=== PATIENT | male | born 1970 | race African-American/Black ===

== ENCOUNTER 2017-09-13 13:09 | Inpatient (IN) | payer BC ==
[2017-09-13] MEDS ORDERED: Propofol 1,000 MG/100 ML VIAL IV ONE ×2 (13:13→17:54)
[2017-09-13] MEDS ORDERED: fentaNYL Citrate/PF 2,000 MCG in Sodium Chloride 0.9% 60 ML IV SCH (13:30)
[2017-09-13 13:39] LABS: Base Excess-Venous -6.1 mmol/L (0 (+/- 2.5)); Bicarbonate (HCO3v) 22.6 mmol/L (1.0-85.0); CO2 Tension (PvCO2) 55.2 mmHg (41.0-51.0); Hemoglobin - Calc 17.4 g/dL (12.0-18.0); Lactate 5.13 mmol/L (0.50-2.20); O2 Tension (PvO2) 18.9 mmHg (35.0-45.0); Potassium 3.6 mmol/L (3.4-4.7); T. Carbon Dioxide 24.2 mmol/L (1.0-85.0); pH (Venous) 7.219 (7.35-7.45); vO2 Saturation-calc 20.7 % (94-98)
[2017-09-13 13:47] LABS: Hemoglobin 15.5 g/dL (14.0-18.0); Mean Corpuscular HGB CONC 31.4 g/dL (32.0-36.0); Mean Corpuscular Hemoglobin 30.1 pg (27.0-31.0); Mean Corpuscular Volume 95.7 fl (80.0-94.0); Mean Platelet Volume 10.2 fL (7.4-10.4); Platelet Count 148 thou/uL (130-400); Red Blood Cell (RBC) Count 5.15 mill/uL (4.70-6.10); White Blood Cell (WBC) Count 7.3 thou/uL (4.8-10.8)
[2017-09-13 13:48] LABS: Bilirubin Small (Negative); Blood, Urine Trace (Negative); Clarity CLOUDY (Clear); Glucose, Urine (Dipstick) Negative (Negative); Leukocyte Small (Negative); Nitrite Negative (Negative); Protein, Urine (Dipstick) 30 mg/dL (Neg-Trace); Specific Gravity, Urine 1.027 (1.002-1.036)
[2017-09-13 13:50] LABS: Bacteria/HPF None Seen HPF (None Seen); Pathc Cast-AUWi Flag 2.47 (0-2.49); RBC/HPF 0-3 HPF (0-3); Squamous Epithelial 0-3 HPF (0-3); WBC/HPF 0-3 HPF (0-3)
[2017-09-13 13:52] LABS: Hyaline Casts/LPF 0-3 HYALINE CAST LPF (0-3 Hyaline)
[2017-09-13 13:58] LABS: Amphetamine Not Detected (NotDetected); Barbiturates Screen Not Detected (NotDetected); Benzodiazepine Screen Detected (NotDetected); Cocaine Metabolite Screen Not Detected (NotDetected); Medtox Control Line Valid? VALID (VALID); Medtox Reader # READER 4; Methadone Not Detected (NotDetected); Methamphetamine Not Detected (NotDetected); Opiate Screen Not Detected (NotDetected); Oxycodone Screen Not Detected (NotDetected); Phencyclidine (PCP) Not Detected (NotDetected); THC/Cannabinoid Screen Not Detected (NotDetected); Tricyclic Screen Not Detected (NotDetected)
[2017-09-13 14:05] LABS: ALT (SGPT) 34 U/L (8-55); AST (SGOT) 39 U/L (5-34); Albumin 3.2 g/dL (3.5-5.0); Alkaline Phosphatase 105 U/L (40-150); Anion Gap 17 mmol/L (10-20); BUN (Urea Nitrogen) 41 mg/dL (8.9-20.6); Bilirubin, Total 2.3 mg/dL (0.2-1.2); Calc. Creatinine Clearance 0 mL/min (70-130); Calcium 8.6 mg/dL (7.8-10.44); Carbon Dioxide 22 mmol/L (22-29); Chloride 102 mmol/L (98-107); Estimated GFR-MDRD 36; Globulin 3.1 g/dL (2.4-3.5); Glucose 101 mg/dL (70-105); Potassium 3.9 mmol/L (3.5-5.1); Protein, Total 6.3 g/dL (6.0-8.3); Sodium 137 mmol/L (136-145)
[2017-09-13 14:08] LABS: CKMB 2.1 ng/mL (0-6.6)
[2017-09-13 14:09] LABS: Lymphocytes 62 % (21-51); MDiff Complete? YES; Monocytes 9 % (0-10); Neutrophil 29 % (42-75); Nucleated RBC 2 % (0); PLT Morphology Comment Appears Adequate
[2017-09-13 14:11] LABS: Troponin I 1.296 ng/mL (< 0.028)
[2017-09-13 14:12] LABS: Actual Bicarbonate (HCO3a) 14.9 mEq/L (22-26); Base Excess (BEa) -9.4 mEq/L (0 (+/-) 2.5); CO2 Tension 28.7 mmHg (35.0-45.0); Hematocrit-ABG 47.8 % (42.0-52.0); Hemoglobin (Hb) 15.1 g/dL (14.0-18.0); O2 Tension (PaO2) 100.3 mmHg (80.0-100.0); pH, Arterial 7.33 (7.35-7.45)
[2017-09-13 14:13] LABS: ALV-art Gradient 291.625 (0-20); Analyzer IN Cardio ER; Calcium, Ionized 1.1 mmol/L (1.12-1.30); Puncture Site RBRACH
--- NOTE | 2017-09-13 14:23 | RAD ---
CHEST ONE VIEW: History: Chest pain. Cardiac arrest. FINDINGS: Cardiac silhouette magnified and enlarged. Pulmonary vasculature appears slightly engorged. Mediastin um midline. Tip of an endotracheal catheter overlies the thoracic inlet. Nasogastric tube descending to the abdomen at midline. Defibrillator patchy overlies the right upper chest. No evidence of pneumo thorax. IMPRESSION: 1. Cardiomegaly with borderline pulmonary vascular congestion. 2. Endotracheal catheter is in good radiographic position. POS: [facility]
[2017-09-13] MEDS ORDERED: Aspirin 325 MG TAB ONE (14:46)
[2017-09-13] MEDS ORDERED: Aspirin 300 MG Suppository ONE (14:47)
--- NOTE | 2017-09-13 14:56 | CT ---
CT HEAD NONCONTRAST: History: Altered mental status. Cardiac arrest. FINDINGS: There is no evidence of acute intracranial hemorrhage or infarct. Ventricles appear normal in size, s hape, and position. There is no mass effect or shift of midline structures. Visualized paranasal sinu ses remain well aerated. IMPRESSION: No acute intracranial abnormalities are demonstrated on noncontrast CT head. POS: [facility]
[2017-09-13] MEDS ORDERED: Acetaminophen 650 MG Suppository PR PRN (16:23)
[2017-09-13] MEDS ORDERED: Ondansetron HCl/PF 4 MG/2 ML Vial IVP PRN (16:23)
[2017-09-13] MEDS ORDERED: Bisacodyl 10 MG SUPP PR PRN (16:23)
[2017-09-13] MEDS ORDERED: Pantoprazole 40 MG VIAL IVP SCH (16:45)
[2017-09-13 17:08] LABS: Troponin I 1.905 ng/mL (< 0.028)
[2017-09-13 17:19] LABS: Lactic Acid 7.3 mmol/L (0.5-2.2)
--- NOTE | 2017-09-13 17:36 | HP ---
PRIMARY CARE PHYSICIAN: Dr. Franklin. REASON FOR ADMISSION: Out of hospital arrest. HISTORY OF PRESENT ILLNESS: This is a 47-year-old [place] male with a past medical history signific ant for acid reflux symptoms, on proton pump inhibitor. He was being evaluated by Gastroenterology f or these symptoms and was getting a diagnostic EGD along with a screening colonoscopy done today. In the outpatient center, patient had both procedures done and in recovery, he went into atrial fibrill ation with rapid ventricular rate and then lost pulse. By the emergency room physician's report, the patient had 8 cycles of CPR with epinephrine, but no shocks given and he eventually had return of sp ontaneous circulation. He was intubated and brought by EMS to the emergency room. Per the EMS repor t, the patient was biting down on the tube and moving some although I am uncertain if he was moving a ny of his extremities. In the emergency room, patient was found to still be in atrial fibrillation. He had a synchronized cardioversion with a conversion to normal sinus rhythm and in the emergency ro om, he was put on fentanyl for biting on the tube and Dr. Colvin was consulted for Pulmonology. Bed side ultrasound done by the emergency room physician did show a decreased ejection fraction of his he art. All history is taken from the emergency room physician as well and then the chart and the famil y was at bedside. His older sister and his are currently at bedside. PAST MEDICAL HISTORY: None. PAST SURGICAL HISTORY: None. PAST PSYCHIATRIC HISTORY: Anxiety. SOCIAL HISTORY: No tobacco or illicit drug use. Drinks socially and rarely. He is . FAMILY HISTORY: Failing history of congestive heart failure and adult-onset diabetes mellitus type 2 along with a kidney cancer. ALLERGIES: No known drug allergies. CURRENT MEDICATIONS: Prilosec or some other proton pump inhibitor. REVIEW OF SYSTEMS: Unable to obtain secondary to patient's unresponsive status. Per the patient's w milli, he does snore quite a lot, but does not have apneic spells at night. He does have daytime sleep iness. He also has had some swelling of his feet and legs for the last couple of days. No other rev iew of systems that he knows about. PHYSICAL EXAMINATION: VITAL SIGNS: Blood pressure 86/70, pulse 89, respirations 18, temperature 98.2, O2 sat 98% on ventil ator. GENERAL: This is a well-developed, obese male who is sedated on the vent. HEENT: Pupils are equally round and slightly reactive to light. Oropharynx, he does have the ET tub e in place. NECK: Without any masses or evidence of trauma. He has no lymphadenopathy, no thyroid nodules or en largement. HEART: Regular rate and rhythm, no murmurs, rubs or gallops. LUNGS: Clear to auscultation bilaterally, no wheezes, crackles or rhonchi. ABDOMEN: Soft, without masses. Normal bowel sounds. EXTREMITIES: Patient does have some slight edema in bilateral lower extremities and good peripheral pulses. SKIN: No rashes or lesions noted. NEUROLOGIC: Patient has intact reflexes in all extremities. He is currently nonresponsive to pain i n the extremities. He is not showing any spontaneous movement or response to pain. LABORATORY DATA: CBC grossly within normal limits. Initial Venous blood gas showed a pH of 7.219 wi th a pCO2 of 55. Arterial blood gas an hour later after increasing respiratory rate shows the pH of 7.33, pCO2 of 28, pO2 of 100. Complete metabolic panel notable for BUN at 41 and a creatinine of 2.3 2. Total bilirubin of 2.3, AST of 39 and albumin of 3.2, the rest is normal. Initial troponin is 1. 296 with a normal CK-MB. Lactic acid was initially elevated at 5.7. Urinalysis showed trace ketones and trace blood, but no white blood cells or red blood cells, no bacteria. Toxicology screen was po sitive only for benzodiazepines from his endoscopy sedation. IMAGING: I did review the CT of the brain done in the emergency room along with the radiologist's re port shows no evidence for intracranial hemorrhage or infarct. No evidence of edema at this time and normal CT. Chest x-ray, I did review the chest x-ray done in the emergency room along with the radi ologist's report, this does show some cardiomegaly with borderline pulmonary vascular congestion and an endotracheal tube in good position. No evidence for pneumonia or other significant infiltrates. EKG: Initial EKG done in the emergency room showed atrial fibrillation with rapid ventricular respon se, status post the cardioversion. The patient was back in normal sinus rhythm with occasional PVCs, did have some right axis deviation and some changes since with possibility of anterior ischemia. ASSESSMENT: 1. Out of hospital cardiac arrest with return of spontaneous circulation. This is possibly due to t he patient's atrial fibrillation versus some undiagnosed sleep apnea leading to an apneic spell in re covery and hypoxia causing the cardiac arrest. Patient has been evaluated by Dr. Colvin in the [facility]. Given he is not moving his arms or legs, though he did have some facial movements, we wi ll go ahead and do a post-arrest cooling once he gets to the emergency room. Patient will need to be supported with ventilator and cardiovascular supported for the next couple of days to see if his bra in will recover or if he had a significant anoxic brain injury. 2. Atrial fibrillation with rapid ventricular rate, new onset, possibly related to some hypoxia or a pnea during recovery versus just from underlying right heart strain from chronic obstructive sleep ap edwin. Patient is currently back in sinus rhythm. We will need to get an echocardiogram and Cardiolog y will be consulted. Patient will likely need some sort of anticoagulation in the future depending o n his CHADS score at least I believe some aspirin. 3. Obesity with likely obstructive sleep apnea. Patient will need further workup once he recovers f rom this insult and should he have a good recovery, he may need a sleep study in the future. 4. History of reflux. We will put patient on Protonix IV daily. 5. Deep venous thrombosis prophylaxis. We will put the patient on sequential compression devices an d Lovenox. 6. Code status: The patient is a FULL CODE. His medical decision maker is his , Vaishnavi Owens.
[2017-09-13] MEDS ORDERED: Norepinephrine 8 MG/0.9% NS 250 ML IVPB PRN (17:39)
[2017-09-13] MEDS ORDERED: Lacri-Lube Opth Oint 3.5 GM TUBE EA EYE PRN (17:39)
[2017-09-13] MEDS ORDERED: Ventilator Sedation Protocol 1 EACH FS SCH (17:45)
[2017-09-13] MEDS ORDERED: Fentanyl BOLUS 250 ML IVPB PRN (17:55)
[2017-09-13] MEDS ORDERED: Morphine 4 MG/ML VIAL SLOW IVP PRN (17:55)
[2017-09-13] MEDS ORDERED: Lorazepam 2 MG/ML VIAL SLOW IVP PRN (17:55)
[2017-09-13] MEDS ORDERED: Propofol BOLUS 1,000 MG/100 ML VIAL IV PRN (17:55)
[2017-09-13] MEDS ORDERED: DISCONTINUE PREVIOUS NARCOTIC PAIN MEDICATIONS AND BENZODIAZEPINES FS SCH (17:55)
[2017-09-13] MEDS ORDERED: Calcium Gluc 4.6 MEQ/10 ML (100 MG/ML) SLOW IVP SCH (18:15)
[2017-09-13] MEDS: Hydrocortisone Sod Succ/PF 100 mg/2 ml Vial IVP SCH (18:30)
[2017-09-13] MEDS ORDERED: Vecuronium 10 MG VIAL IV PRN (18:30)
[2017-09-13] MEDS ORDERED: Acetaminophen 1,000 MG in Premix Bag 1 BAG IVPB PRN (18:30)
[2017-09-13] MEDS: Piperacillin/Tazobactam 2.25 GM in Sodium Chloride 0.9% 100 ML IVPB SCH (18:36)
[2017-09-13 18:41] LABS: INR-International Normal Ratio 2.1; PTT 36.6 SEC (22.9-36.1); Prothrombin Time 24.6 SEC (12.0-14.7)
[2017-09-13 18:51] LABS: Magnesium 1.8 mg/dL (1.6-2.6); Phosphorus 6.6 mg/dL (2.3-4.7)
[2017-09-13 19:17] LABS: Actual Bicarbonate (HCO3a) 11.7 mEq/L (22-26); Base Excess (BEa) -11.6 mEq/L (0 (+/-) 2.5); Hematocrit-ABG 48.7 % (42.0-52.0); O2 Tension (PaO2) 87.5 mmHg (80.0-100.0); pH, Arterial 7.35 (7.35-7.45)
[2017-09-13 19:18] LABS: Calcium, Ionized 1.1 mmol/L (1.12-1.30); Puncture Site L RADIAL
[2017-09-13] MEDS ORDERED: Sodium Chloride 0.9% 500 ML IVPB SCH (19:45)
--- NOTE | 2017-09-13 21:01 | CON ---
DATE OF CONSULTATION: 09/13/2017 SERVICE: Pulmonary Medicine. REASON FOR CONSULTATION: ICU patient. HISTORY OF PRESENT ILLNESS: Patient is a 47-year-old -[place] male with past medical history significant for essentially nothing. He had some upper gastrointestinal discomforts. This is being investigated with an EGD. He presented for an elective outpatient procedure. EGD and a colonoscopy were both performed. The Either way, the patient tolerated the procedure fairly well , but at the end of it, he went into tachyarrhythmia. He dropped his pressure. He required 4 rounds of chest compressions. Ultimately, a perfusable rhythm was once again reestablished. He was subsequently brought to the emergency department. He was intubated prior to that the transfer. En route, he became apparently combative. As such, he was subsequently put on some sedating medications. In the Emergency Department, he started having some apparently purposeful movement. He was also biting down the endotracheal tube. As such, sedation was initiated. He cannot provide any additional elements of the history. The family reports that for the past 2 weeks, he has had increasing lower extremity swelling of unknown origin. PAST MEDICAL HISTORY: None. PAST SURGICAL HISTORY: None. SOCIAL HISTORY: Negative for tobacco or illicit drug use. He drinks alcohol socially, but this is not common. He has no known exposure to chemicals, dust asbestos or tuberculosis that we are aware of. FAMILY HISTORY: Noncontributory other than strong family history of heart disease, diabetes. ALLERGIES: No known drug allergies. MEDICATIONS: List of his inpatient medications were reviewed. Multiple updates were made. REVIEW OF SYSTEMS: This cannot be obtained as the patient is currently intubated and sedated. PHYSICAL EXAMINATION: VITAL SIGNS: Afebrile. Pulse 89, blood pressure 111/86, respirations 27, saturation 99% on 27% FiO2 and PEEP of 5. GENERAL: The patient is intubated and sedated. HEENT: Normocephalic, atraumatic. Sclerae are white, conjunctivae pink. Oral mucosa is moist without lesions. LUNGS: Decent air entry bilaterally. There are some rhonchi present. Dependent crackles are also evident. No prolonged expiratory phase or wheezing is appreciated. HEART: Normal rate, regular. ABDOMEN: Soft, nontender, nondistended. Bowel sounds are positive. MUSCULOSKELETAL: No cyanosis or clubbing. He has got 2+ pitting in the bilateral lower extremities, which is roughly symmetric. GENITOURINARY: Carbajal catheter in place. NEUROLOGIC: Pupils are equal, round, and reactive. He is having episodes of tachypnea interposed with him making no effort over the ventilator. He is not doing anything purposeful. He does not withdraw from noxious stimuli, but during his intermittent episodes of tachypnea, he will spontaneously open up his eyes without attending, and move all 4 extremities. I cannot clearly identify anything that I would define as purposeful. LABORATORY DATA: Urine drug screen is only remarkable for benzodiazepine. Urinalysis has a little bit of proteinuria, but otherwise is mostly unremarkable. There is specifically no red or white blood cells present. Lactate is up trending to 7.3, troponin is up trending to 1.9. Ionized calcium is low at 1.0. Creatinine 2.46. Basic metabolic profile is otherwise unremarkable. Liver function studies are unremarkable except for total bilirubin of 2.3. Albumin 3.2. A pH 7.33, pCO2 of 28, pO2 of 100. He was on 60% FiO2 at that time. CBC is essentially unremarkable, though his neutrophil count is only 29%. Bands were not reported. IMAGIN. CT of the brain demonstrates no acute intracranial abnormality. 2. Chest x-ray demonstrates cardiomegaly with pulmonary vascular congestion. There is no evidence of pneumothorax. Endotracheal tube is in good position. There is an enteric catheter coursing below the level of the diaphragm. Left atrium enlargement is likely given his widened chang angle. ASSESSMENT: 1. Non-ST elevation myocardial infarction. 2. Atrial fibrillation, new onset, status post successful cardioversion, currently normal sinus rhythm. 3. Acute hypoxic respiratory failure. 4. Acute systolic heart failure, suspected. 5. Pulseless electrical activity arrest. 6. Recent EGD biopsy and colonoscopy for nonspecific GI discomforts. 7. Acute kidney injury, currently anuric. 8. Anoxic brain injury, suspected. 9. Obstructive sleep apnea. DISCUSSION AND PLAN: We will watch the patient off of sedating medications for a brief period of time. If he fails to make more meaningful responses, we will initiate cooling protocol. He is currently on pressure control ventilation. If for any reason, we institute a paralytic or a sedating medication, he will be switched over to volume-controlled ventilation targeting a minute volume 12 liters per minute. Urgent echocardiogram will be obtained. I will do an ultrasound of bilateral lower extremities to make certain there is no obvious DVT there. His creatinine is 2.32. There is no way that he has had enough time to create that arise. As such, he likely has a component of chronic kidney disease. Ultrasound of kidneys will also be performed. He will remain in the ICU on mechanical ventilation. If his brain starts to wake up, we will consider him for extubation, but more than likely, he will be with us in the ICU for a couple of days if not longer. CRITICAL CARE TIME: 115 minutes. BLAKE
[2017-09-13 22:55] LABS: Lactic Acid 7.1 mmol/L (0.5-2.2)
[2017-09-13 23:06] LABS: Troponin I 2.129 ng/mL (< 0.028)
[2017-09-13 23:58] LABS: PTT 32.8 SEC (22.9-36.1)
[2017-09-14 00:03] LABS: INR-International Normal Ratio 2.1; Prothrombin Time 24.7 SEC (12.0-14.7)
[2017-09-14] MEDS: Piperacillin/Tazobactam 2.25 GM in Sodium Chloride 0.9% 100 ML IVPB SCH ×5 (00:21→23:32)
[2017-09-14] MEDS: Hydrocortisone Sod Succ/PF 100 mg/2 ml Vial IVP SCH ×2 (00:21→06:45)
[2017-09-14 00:27] LABS: CKMB 12.9 ng/mL (0-6.6); Troponin I 1.691 ng/mL (< 0.028)
[2017-09-14] MEDS: fentaNYL Citrate/PF 2,000 MCG in Sodium Chloride 0.9% 60 ML IV SCH ×3 (03:54→22:41)
[2017-09-14] MEDS: Propofol 1,000 MG/100 ML VIAL IV PRN ×3 (03:59→23:32)
[2017-09-14 05:13] LABS: Anion Gap 19 mmol/L (10-20); BUN (Urea Nitrogen) 51 mg/dL (8.9-20.6); Calc. Creatinine Clearance 58 mL/min (70-130); Calcium 9.1 mg/dL (7.8-10.44); Carbon Dioxide 21 mmol/L (22-29); Chloride 103 mmol/L (98-107); Estimated GFR-MDRD 30; Glucose 190 mg/dL (70-105); Potassium 5.3 mmol/L (3.5-5.1); Sodium 138 mmol/L (136-145)
[2017-09-14 05:17] LABS: #Lymphocytes 1.2 thou/uL (1.20-3.40); #Monocytes 0.5 thou/uL (0.11-0.59); #Neutrophils 9.1 thou/uL (1.40-6.50); %Basophils 0.4 % (0.0-1.0); %Eosinophils 0.3 % (0.0-10.0); %Lymphocytes 10.9 % (21.0-51.0); %Monocytes 4.4 % (0.0-10.0); %Neutrophils 83.9 % (42.0-75.0); Large Platelets SLIGHT; MDiff Complete? YES; Mean Corpuscular HGB CONC 32.6 g/dL (32.0-36.0); Mean Corpuscular Hemoglobin 31.2 pg (27.0-31.0); Mean Corpuscular Volume 95.7 fl (80.0-94.0); Mean Platelet Volume 10.3 fL (7.4-10.4); PLT Morphology Comment Appears Decreased; Platelet Count 107 thou/uL (130-400); RBC Distribution Width 13.2 % (11.5-14.5); Red Blood Cell (RBC) Count 5.14 mill/uL (4.70-6.10); White Blood Cell (WBC) Count 10.8 thou/uL (4.8-10.8)
[2017-09-14 05:25] LABS: ALT (SGPT) 231 U/L (8-55); AST (SGOT) 412 U/L (5-34); Albumin 3.1 g/dL (3.5-5.0); Alkaline Phosphatase 98 U/L (40-150); Bilirubin, Direct 1.1 mg/dL (0.1-0.3); Bilirubin, Total 2.8 mg/dL (0.2-1.2); Protein, Total 6.4 g/dL (6.0-8.3)
[2017-09-14 06:03] LABS: #Lymphocytes 1.4 thou/uL (1.20-3.40); #Monocytes 0.6 thou/uL (0.11-0.59); #Neutrophils 8.8 thou/uL (1.40-6.50); %Basophils 0.1 % (0.0-1.0); %Eosinophils 0.2 % (0.0-10.0); %Lymphocytes 13.3 % (21.0-51.0); %Monocytes 5.2 % (0.0-10.0); %Neutrophils 81.2 % (42.0-75.0); Mean Corpuscular HGB CONC 31.2 g/dL (32.0-36.0); Mean Corpuscular Hemoglobin 29.6 pg (27.0-31.0); Platelet Count 105 thou/uL (130-400); RBC Distribution Width 13.3 % (11.5-14.5); White Blood Cell (WBC) Count 10.8 thou/uL (4.8-10.8)
[2017-09-14 06:08] LABS: INR-International Normal Ratio 2.2; PTT 34.8 SEC (22.9-36.1); Prothrombin Time 25.5 SEC (12.0-14.7)
[2017-09-14 06:18] LABS: Anion Gap 20 mmol/L (10-20); BUN (Urea Nitrogen) 52 mg/dL (8.9-20.6); Calc. Creatinine Clearance 55 mL/min (70-130); Calcium 9.1 mg/dL (7.8-10.44); Carbon Dioxide 19 mmol/L (22-29); Chloride 103 mmol/L (98-107); Estimated GFR-MDRD 28; Glucose 194 mg/dL (70-105); Phosphorus 6.5 mg/dL (2.3-4.7); Sodium 137 mmol/L (136-145)
[2017-09-14 06:32] LABS: CKMB 18.3 ng/mL (0-6.6); Troponin I 0.947 ng/mL (< 0.028)
--- NOTE | 2017-09-14 07:46 | PDOC.PN ---
- Subjective Encounter Start Date: 09/14/17 Encounter Start Time: 10:00 Subjective: Patient sedated on vent overnight, cooling protocol. - Objective Resuscitation Status: Resuscitation Status FULL:Full Resuscitation MAR Reviewed: Yes Vital Signs & Weight: Vital Signs (12 hours) Temp Pulse Resp BP Pulse Ox 09/14/17 06:49 60 129/90 99 09/14/17 05:57 21 H 09/14/17 04:00 21 H 09/14/17 03:40 57 L 09/14/17 02:00 21 H 09/14/17 00:00 21 H 09/13/17 23:06 59 L 127/85 09/13/17 22:00 21 H 09/13/17 20:00 96.8 F L 74 21 H 100 Most Recent Monitor Data Heart Rate from ECG 56 NIBP 118/82 NIBP BP-Mean 97 Respiration from ECG 21 SpO2 99 I&O: 09/13/17 09/14/17 09/15/17 06:59 06:59 06:59 Intake Total 911.4 Output Total 203 Balance 708.4 Result Diagrams: 09/14/17 05:40 09/14/17 05:40 Phys Exam - Physical Examination sedated on vent Respiratory: no wheezing, no rales, no rhonchi Cardiovascular: RRR, no significant murmur Gastrointestinal: soft, positive bowel sounds Musculoskeletal: edema present Deviation from normal: sedated on vent Dx/Plan (1) PEA (Pulseless electrical activity) Code(s): I46.9 - CARDIAC ARREST, CAUSE UNSPECIFIED Status: Acute Comment: Arrest with ROSC after 8 rounds of CPR/Epi, cooling protocol in ICU (2) Acute respiratory failure Code(s): J96.00 - ACUTE RESPIRATORY FAILURE, UNSP W HYPOXIA OR HYPERCAPNIA Status: Acute Comment: intubated and ventilated, breathing over the vent in the ER (3) Atrial fibrillation Code(s): I48.91 - UNSPECIFIED ATRIAL FIBRILLATION Status: Resolved Comment: s/p synchronized cardioversion in the ER after ROSC (4) NSTEMI (non-ST elevated myocardial infarction) Code(s): I21.4 - NON-ST ELEVATION (NSTEMI) MYOCARDIAL INFARCTION Status: Acute Comment: ECHO pending, Dr. Lagunas consulted (5) Acute on chronic renal failure Code(s): N17.9 - ACUTE KIDNEY FAILURE, UNSPECIFIED; N18.9 - CHRONIC KIDNEY DISEASE, UNSPECIFIED Status: Acute Comment: uncertain baseline (6) ENZO (obstructive sleep apnea) Code(s): G47.33 - OBSTRUCTIVE SLEEP APNEA (ADULT) (PEDIATRIC) Status: Suspected (7) Anoxic brain damage Status: Suspected - Plan cont current plan of care, continue antibiotics, respiratory therapy, DVT proph w/lovenox, DVT proph w/SCDs plan for cooling until tonight, then warm overnight, can start weaning -: sedation after that and see how he responds neurologically * . - Discharge Day Encounter end time: 10:30
[2017-09-14] MEDS: Enoxaparin Sodium 30 MG/0.3 ML SYRINGE SC SCH (08:37)
[2017-09-14] MEDS: Pantoprazole 40 MG VIAL IVP SCH (08:38)
--- NOTE | 2017-09-14 08:48 | ULT ---
RENAL ULTRASOUND: CLINICAL INDICATION: Oliguria, acute renal insufficiency. FINDINGS: The left kidney demonstrates a length of approximately 10 cm and the right kidney approximately 11 cm . There is no overt hydronephrosis or discrete renal lesion. The urinary bladder is decompressed li miting assessment. IMPRESSION: No overt hydronephrosis of either kidney. POS: [facility]
--- NOTE | 2017-09-14 08:50 | ULT ---
BILATERAL LOWER EXTREMITY VENOUS DUPLEX DOPPLER ULTRASOUND: CPT: 36918 ICD-10-PCS: B54D INDICATIONS: Edema. TECHNIQUE: Color-flow Doppler, spectral wave-form analysis of pulsed Doppler, and dale-scale imaging with compre ssion and augmentation were used to evaluate the bilateral common femoral, femoral, popliteal, sport shoe spike assembler ior tibial, and superficial femoral veins, and the proximal portions of the profunda femoral and grea ter saphenous veins. FINDINGS: Appropriate compressibility and flow within the imaged deep venous system of each lower extremity wit hout evidence of DVT. IMPRESSION: No deep venous thrombosis. POS: [facility]
--- NOTE | 2017-09-14 09:03 | PRG ---
DATE OF SERVICE: 09/14/2017 SERVICE: Pulmonary Service. INTERVAL HISTORY: The patient is doing great from cardiovascular and respiratory standpoint. Neurol ogically, he has made much headway. That being said, we started cooling last night. He is currently on 200 mcg of fentanyl and a little bit of propofol. He is weaning off of the Levophed very comfort ably. He cannot provide additional elements of the history. Overnight, he started making a little b it of urine, which is nice. PHYSICAL EXAMINATION: VITAL SIGNS: Currently hypothermic, pulse 60, blood pressure 118/82, respirations 21, saturation 99% on 27% FiO2 and a PEEP of 5. HEENT: Normocephalic, atraumatic. Sclerae are white, conjunctivae pink. Oral mucosa is moist witho ut lesions. LUNGS: Decent air entry bilaterally. There is no prolonged expiratory phase, wheezing, rhonchi, or crackles present. HEART: Normal rate and regular. ABDOMEN: Soft, nontender, nondistended. Bowel sounds are positive. MUSCULOSKELETAL: No cyanosis or clubbing. There is 2+ pitting in the bilateral lower extremities. NEUROLOGIC: Pupils are equal, round, and reactive to light. He is currently riding the ventilator, by design. LABORATORY DATA: WBC 10.8, hemoglobin 16.0, platelets 105,000. INR 2.2. PH 7.35, pCO2 22 and pO2 8 7. Creatinine 2.87, which is gently up trending. Basic metabolic profile is otherwise unremarkable. Phosphorus is 6.5 and magnesium 2.0. Troponin is down trending to 0.947, lactate is gently down tr ending to 7.1, and albumin 3.1. BNP 809, blood cultures x2 are unremarkable so far. IMAGING: Chest x-ray demonstrates no obvious acute cardiopulmonary abnormality. Endotracheal tube r emains in good position. There is an enteric catheter coursing below the level of the diaphragm. Th ere is a little rotation to this film. The heart is enlarged, though it is a portable film. The lef t base is cut off. Pulmonary vascular congestion is evident. ASSESSMENT: 1. Acute hypoxic respiratory failure. 2. Non-ST elevation myocardial infarction. 3. Acute systolic heart failure, suspected. 4. Atrial fibrillation, new onset, status post successful cardioversion, currently sinus bradycardia . 5. Pulseless electrical activity. 6. Anoxic brain injury. 7. Acute kidney injury. 8. Obstructive sleep apnea, suspected. 9. Recent EGD and colonoscopy for nonspecific GI discomforts DISCUSSION AND PLAN: The troponin is finally trending down, which is nice to see. No additional tro ponins will be obtained. We will get a lactate with his next blood draw. Otherwise, supportive care will be continued. We are currently in a holding pattern. He will remain cool till 6:00 this al dillon. At that point, we will rewarm him, wean sedation and see what the extent of his neurologic injur y is. The family is prepared for possible bad neurologic outcome, though everybody still hoping for the best. CRITICAL CARE TIME: 30 minutes.
[2017-09-14 12:14] LABS: #Lymphocytes 1.2 thou/uL (1.20-3.40); #Monocytes 0.4 thou/uL (0.11-0.59); %Basophils 0.1 % (0.0-1.0); %Eosinophils 0.1 % (0.0-10.0); %Lymphocytes 13.5 % (21.0-51.0); %Monocytes 4.9 % (0.0-10.0); %Neutrophils 81.4 % (42.0-75.0); Hemoglobin 15.6 g/dL (14.0-18.0); Mean Corpuscular HGB CONC 31.7 g/dL (32.0-36.0); Mean Corpuscular Hemoglobin 29.8 pg (27.0-31.0); Mean Platelet Volume 10.2 fL (7.4-10.4); Platelet Count 101 thou/uL (130-400); Red Blood Cell (RBC) Count 5.24 mill/uL (4.70-6.10); White Blood Cell (WBC) Count 8.5 thou/uL (4.8-10.8)
[2017-09-14 12:19] LABS: INR-International Normal Ratio 2.2; PTT 37.9 SEC (22.9-36.1); Prothrombin Time 25.1 SEC (12.0-14.7)
[2017-09-14 12:30] LABS: Lactic Acid 3.5 mmol/L (0.5-2.2)
[2017-09-14 12:33] LABS: Anion Gap 18 mmol/L (10-20); BUN (Urea Nitrogen) 54 mg/dL (8.9-20.6); Calc. Creatinine Clearance 58 mL/min (70-130); Calcium 8.9 mg/dL (7.8-10.44); Carbon Dioxide 18 mmol/L (22-29); Chloride 105 mmol/L (98-107); Estimated GFR-MDRD 30; Glucose 179 mg/dL (70-105); Phosphorus 5.9 mg/dL (2.3-4.7); Potassium 4.4 mmol/L (3.5-5.1); Sodium 137 mmol/L (136-145)
--- NOTE | 2017-09-14 15:18 | CON ---
DATE OF CONSULTATION: 09/14/2017 HISTORY OF PRESENT ILLNESS: The patient is a 47-year-old -[place] gentleman, who underwent E GD and colonoscopy at [facility] and developed atrial fibrillation. He had a rap id ventricular rate and then lost his pulse. He had a CPR performed and given epinephrine and had sp ontaneous return of heart rhythm. He was intubated and transported to the emergency room. He adds n othing to history of present illness today that he is being sedated and cooled. PAST MEDICAL HISTORY: Includes gastroesophageal reflux disease. PAST SURGICAL HISTORY: None. ALLERGIES: No known allergies. MEDICATIONS: Include dicyclomine 10 mg p.o. q.i.d. p.r.n. SOCIAL HISTORY: He is , 5 children. Does not smoke or drink. FAMILY HISTORY: Significant for esophageal reflux disease. REVIEW OF SYSTEMS: Unobtainable. PHYSICAL EXAMINATION: GENERAL: Shows obese -[place] gentleman, ventilated. HEENT: Significant for endotracheal tube in place. CHEST: Clear. CARDIOVASCULAR: Regular rate and rhythm. ABDOMEN: Soft, nontender, without organomegaly or masses. Bowel sounds are present and normoactive. RECTAL: Deferred. EXTREMITIES: Normal. NEUROLOGIC: Nonfocal. LABORATORY DATA: EGD report obtained showed grade I esophageal varices and changes of portal hyperte nsive gastropathy. Ultrasound from a referral outsource showed a normal abdominal ultrasound. Labor atory performed in the outpatient setting showed total bilirubin of 2.9 and AST of 51. TSH was rogelio l. Antinuclear antibody was normal. Ceruloplasmin showed a level of 30.9. Ferritin was normal. He patitis panel was negative. Antimitochondrial antibody and smooth muscle antibody were both negative . ASSESSMENT: 1. Atrial fibrillation with loss of pulse and need for cardiopulmonary resuscitation in the outpatie nt setting. 2. Gastroesophageal reflux disease. 3. Hepatic dysfunction - the patient may have some underlying cirrhosis since he has some small vari deborah and portal hypertensive gastropathy. RECOMMENDATIONS: 1. Continue critical care management. 2. We will work up liver disorder once the patient is more stable.
[2017-09-14 18:08] LABS: #Lymphocytes 0.6 thou/uL (1.20-3.40); #Monocytes 0.3 thou/uL (0.11-0.59); %Basophils 0.1 % (0.0-1.0); %Eosinophils 0.3 % (0.0-10.0); %Lymphocytes 10.2 % (21.0-51.0); %Monocytes 4.8 % (0.0-10.0); %Neutrophils 84.7 % (42.0-75.0); Hemoglobin 14.9 g/dL (14.0-18.0); Mean Corpuscular HGB CONC 33.6 g/dL (32.0-36.0); Mean Corpuscular Hemoglobin 31.4 pg (27.0-31.0); Mean Corpuscular Volume 93.5 fl (80.0-94.0); Mean Platelet Volume 10.7 fL (7.4-10.4); Platelet Count 82 thou/uL (130-400); RBC Distribution Width 13.1 % (11.5-14.5); Red Blood Cell (RBC) Count 4.73 mill/uL (4.70-6.10); White Blood Cell (WBC) Count 5.9 thou/uL (4.8-10.8)
[2017-09-14 18:14] LABS: INR-International Normal Ratio 2.1; PTT 39.4 SEC (22.9-36.1); Prothrombin Time 24.6 SEC (12.0-14.7)
[2017-09-14 18:37] LABS: Anion Gap 17 mmol/L (10-20); BUN (Urea Nitrogen) 54 mg/dL (8.9-20.6); Calc. Creatinine Clearance 61 mL/min (70-130); Calcium 8.6 mg/dL (7.8-10.44); Carbon Dioxide 19 mmol/L (22-29); Chloride 106 mmol/L (98-107); Estimated GFR-MDRD 32; Glucose 147 mg/dL (70-105); Magnesium 1.8 mg/dL (1.6-2.6); Phosphorus 5.3 mg/dL (2.3-4.7); Sodium 138 mmol/L (136-145)
[2017-09-14 22:20] LABS: Anion Gap 15 mmol/L (10-20); BUN (Urea Nitrogen) 56 mg/dL (8.9-20.6); Calc. Creatinine Clearance 62 mL/min (70-130); Calcium 8.7 mg/dL (7.8-10.44); Carbon Dioxide 20 mmol/L (22-29); Chloride 106 mmol/L (98-107); Estimated GFR-MDRD 33; Glucose 125 mg/dL (70-105); Potassium 3.7 mmol/L (3.5-5.1); Sodium 137 mmol/L (136-145)
--- NOTE | 2017-09-14 22:23 | CON ---
DATE OF CONSULTATION: 09/14/2017 HISTORY OF PRESENT ILLNESS: Alvarado Owens is a 47-year-old black male who was having some fullness in his chest despite taking proton pump inhibiting medication. He underwent EGD and a colonoscopy at the outpatient endoscopy center. He apparently went through the procedures well and then afterwards went into atrial fibrillation, became hypotensive, and CPR had to be initiated. He was intubated and transferred. Apparently, he remained in atrial fibrillation with fast ventricular response in the emergency room and was cardioverted there. He was somewhat combative and was placed on intravenous sedation with propofol. No other history is available at this time. Apparently over the last 2 weeks, he noticed that he had been having increasing leg edema. PAST MEDICAL HISTORY: Apparently none. OPERATIONS: None. MEDICATIONS: Proton pump inhibitor. ALLERGIES: None. SOCIAL HISTORY: Does not smoke, occasionally drinks. REVIEW OF SYSTEMS: Unobtainable. PHYSICAL EXAMINATION: VITAL SIGNS: Blood pressure 118/89, pulse of 52 and regular. Sinus bradycardia on the monitor. HEENT: PERRL. CHEST: Clear. CARDIAC: S1 and S2 are normal, without any S3, S4 or murmurs. ABDOMEN: Normal bowel sounds, without tenderness, organomegaly. EXTREMITIES: Revealed 1+ pretibial edema. No clubbing or cyanosis. NEUROLOGIC: The patient is sedated. LABORATORY DATA: Admission EKG revealed atrial fibrillation with fast ventricular response of 139 per minute. Four minutes later after cardioversion , he was in sinus rhythm with nonspecific T-wave changes. CBC is fairly unremarkable. Sodium 137, potassium 4.4, chloride 105, carbon dioxide 18, BUN 54, creatinine 2.75. Urine drug screen only detected benzodiazepines. CK-MB 18.3, troponin I 2.129. Echocardiogram revealed severe left ventricular dysfunction with ejection fraction of 25% to 30%, moderate left atrial enlargement, mild right atrial enlargement, moderate mitral regurgitation, mild to moderate aortic regurgitation, moderate to severe tricuspid regurgitation, and moderate pulmonic regurgitation. IMPRESSION: 1. Cardiac arrest with prolonged CPR after an episode of atrial fibrillation and then hypotension. 2. Cardiomyopathy of uncertain etiology. 3. Elevated cardiac enzymes, which certainly could have been due to his prolonged CPR or he certainly may have had a [id number] myocardial infarction. 4. Peripheral edema over 2 weeks. 5. Chronic kidney disease. There does not appear to be any old laboratory for comparison. RECOMMENDATIONS: The patient currently is sedated on a cooling blanket. This will be tapered off over the next 24-36 hours. His neurological status will then be assessed. If he has return of his cerebral function, consideration certainly should be given to cardiac catheterization to try to define the etiology of his cardiomyopathy. I will follow the patient with you. BLAKE
[2017-09-15 03:07] LABS: Anion Gap 15 mmol/L (10-20); BUN (Urea Nitrogen) 60 mg/dL (8.9-20.6); Calc. Creatinine Clearance 63 mL/min (70-130); Calcium 8.4 mg/dL (7.8-10.44); Carbon Dioxide 19 mmol/L (22-29); Chloride 108 mmol/L (98-107); Estimated GFR-MDRD 33; Glucose 103 mg/dL (70-105); Potassium 3.7 mmol/L (3.5-5.1); Sodium 138 mmol/L (136-145)
[2017-09-15] MEDS: Piperacillin/Tazobactam 2.25 GM in Sodium Chloride 0.9% 100 ML IVPB SCH ×4 (05:58→23:44)
[2017-09-15] MEDS: Propofol 1,000 MG/100 ML VIAL IV PRN (06:41)
[2017-09-15] MEDS: fentaNYL Citrate/PF 2,000 MCG in Sodium Chloride 0.9% 60 ML IV SCH (06:52)
[2017-09-15 07:26] LABS: Anion Gap 15 mmol/L (10-20); BUN (Urea Nitrogen) 61 mg/dL (8.9-20.6); Calc. Creatinine Clearance 59 mL/min (70-130); Calcium 8.3 mg/dL (7.8-10.44); Carbon Dioxide 18 mmol/L (22-29); Chloride 109 mmol/L (98-107); Estimated GFR-MDRD 31; Glucose 92 mg/dL (70-105); Potassium 4.3 mmol/L (3.5-5.1); Sodium 138 mmol/L (136-145)
[2017-09-15] MEDS: Enoxaparin Sodium 30 MG/0.3 ML SYRINGE SC SCH ×2 (08:24)
[2017-09-15] MEDS: Pantoprazole 40 MG VIAL IVP SCH (08:24)
[2017-09-15] MEDS ORDERED: Furosemide 40 MG/4 ML VIAL SLOW IVP SCH (09:45)
[2017-09-15] MEDS ORDERED: Digoxin 0.5 MG/2 ML AMP ONE (09:49)
[2017-09-15] MEDS ORDERED: Amiodarone HCl 150 MG in Dextrose 5% in Water 100 ML IVPB SCH (10:00)
[2017-09-15] MEDS: Amiodarone HCl 450 MG in Dextrose 5% in Water 250 ML IVPB SCH ×2 (10:12→16:47)
--- NOTE | 2017-09-15 11:10 | PRG ---
DATE OF SERVICE: 09/15/2017 SERVICE: Pulmonary Medicine. INTERVAL HISTORY: The patient is following commands this morning. Mentation mc, things improved dramatically. Oxygen requirements have improved. Overall , he has had a very positive 24 hours. He remains on quite a bit of sedation. We are going to put him on a spontaneous breathing trial as soon as he tolerates a good sedation holiday. His breaths are little anemic with all the sedation currently. PHYSICAL EXAMINATION: VITAL SIGNS: Afebrile, pulse 81, blood pressure 100/71, respirations 23, saturation 97% on 21% FiO2 and a PEEP of 5. GENERAL: Patient is intubated and sedated. That being said, he is following commands. He is moving all 4 extremities. HEENT: Normocephalic, atraumatic. Sclerae are white, conjunctivae pink. Oral mucosa is moist without lesions. LUNGS: Excellent air entry. There is no prolonged expiratory phase or wheezing present. HEART: Normal rate, regular. ABDOMEN: Soft, nontender, nondistended. Bowel sounds are positive. MUSCULOSKELETAL: No cyanosis or clubbing. There is 2+ pitting in the bilateral lower extremities. NEUROLOGIC: Grossly nonfocal. LABORATORY DATA: WBC 5.9, hemoglobin 14.9, platelets 82,000. INR 2.1. Creatinine 2.67 and roughly stable, BUN 61. Basic metabolic profile is essentially unremarkable otherwise. Blood cultures x4 are unremarkable. IMAGING: Echocardiogram demonstrates 25%-30% ejection fraction. Moderately dilated left atrium. Mild to moderate aortic regurgitation is noted. Moderate to severe tricuspid regurgitation, moderate pulmonic regurgitation. ASSESSMENT: 1. Acute hypoxic respiratory failure. 2. Acute systolic and valvular heart failure. 3. Non-ST elevation myocardial infarction. 4. Atrial fibrillation, new onset, status post successful cardioversion, currently sinus rhythm. 5. Pulseless electrical activity arrest, out of hospital. 6. Anoxic brain injury, quickly resolving. 7. Acute kidney injury versus chronic kidney disease. 8. Obstructive sleep apnea, suspected. DISCUSSION AND PLAN: We will start a daily dose of Lasix for the time being until he diureses to euvolemia. Once he wakes up, we will put him on a spontaneous breathing trial. We will get the central line out of his femoral vein. He will remain in the ICU over the next 24 hours. Ultimately on discharge from the hospital, we will need to look into whether or not he has obstructive sleep apnea. CRITICAL CARE TIME: 30 minutes. BLAKE
--- NOTE | 2017-09-15 11:34 | PDOC.PN ---
- Subjective Encounter Start Date: 09/15/17 Encounter Start Time: 08:50 -: old records requested/rev Patient seen and examined for respiratory failure. intubated, family bedside. No overnight events pt is awake on vent, family bedside - Objective Resuscitation Status: Resuscitation Status FULL:Full Resuscitation MAR Reviewed: Yes Vital Signs & Weight: Vital Signs (12 hours) Temp Pulse Resp BP Pulse Ox 09/15/17 10:00 17 09/15/17 09:58 152 H 09/15/17 09:50 145 H 111/75 09/15/17 08:00 21 H 09/15/17 07:11 96.4 F L 72 21 H 96 09/15/17 06:16 73 91/56 L 09/15/17 06:00 21 H 09/15/17 04:56 79 09/15/17 04:00 21 H 09/15/17 02:00 21 H 09/15/17 00:00 21 H 09/14/17 23:40 68 86/55 L Weight Admit Weight 276 lb Weight 276 lb 7.355 oz Most Recent Monitor Data Heart Rate from ECG 126 NIBP 106/53 NIBP BP-Mean 68 Respiration from ECG 12 SpO2 98 I&O: 09/14/17 09/15/17 09/16/17 06:59 06:59 06:59 Intake Total 942.6 1250.0 0 Output Total 203 850 320 Balance 739.6 400.0 -320 Result Diagrams: 09/14/17 17:54 09/15/17 06:38 Radiology Reviewed by me: Yes (chest xray) EKG Reviewed by me: Yes (nsr) Phys Exam - Physical Examination Constitutional: NAD HEENT: PERRLA, moist MMs, sclera anicteric Neck: no JVD, supple Respiratory: no wheezing, no rales, no rhonchi Cardiovascular: RRR, no significant murmur, no rub Gastrointestinal: soft, non-tender, no distention, positive bowel sounds Musculoskeletal: no edema, pulses present Lymphatic: no nodes Skin: no rash, normal turgor Dx/Plan (1) Abnormal LFTs Code(s): R94.5 - ABNORMAL RESULTS OF LIVER FUNCTION STUDIES Status: Acute (2) Acute kidney failure Status: Acute (3) Acute respiratory failure with hypoxia Code(s): J96.01 - ACUTE RESPIRATORY FAILURE WITH HYPOXIA Status: Acute (4) Cardiac arrest with pulseless electrical activity Code(s): I46.9 - CARDIAC ARREST, CAUSE UNSPECIFIED Status: Acute (5) Coagulopathy Status: Acute (6) Lactic acidosis Code(s): E87.2 - ACIDOSIS Status: Acute (7) Moderate aortic regurgitation Code(s): I35.1 - NONRHEUMATIC AORTIC (VALVE) INSUFFICIENCY Status: Acute (8) Moderate mitral regurgitation Code(s): I34.0 - NONRHEUMATIC MITRAL (VALVE) INSUFFICIENCY Status: Acute (9) Moderate tricuspid regurgitation Code(s): I07.1 - RHEUMATIC TRICUSPID INSUFFICIENCY Status: Acute (10) Myocardial systolic dysfunction Code(s): I51.9 - HEART DISEASE, UNSPECIFIED Status: Acute (11) NSTEMI (non-ST elevated myocardial infarction) Code(s): I21.4 - NON-ST ELEVATION (NSTEMI) MYOCARDIAL INFARCTION Status: Acute (12) Thrombocytopenia Code(s): D69.6 - THROMBOCYTOPENIA, UNSPECIFIED Status: Acute (13) Obesity (BMI 30-39.9) Code(s): E66.9 - OBESITY, UNSPECIFIED Status: Chronic (14) Anoxic brain damage Status: Suspected (15) ENZO (obstructive sleep apnea) Code(s): G47.33 - OBSTRUCTIVE SLEEP APNEA (ADULT) (PEDIATRIC) Status: Suspected (16) Atrial fibrillation with RVR Code(s): I48.91 - UNSPECIFIED ATRIAL FIBRILLATION Status: Resolved - Plan cont current plan of care, plan discussed w/ family, continue antibiotics * continue zosyn * continue amiodarone drip * will need ischemic evaluation after. * discussed with family bedside * sedation off now, possible cpap trial and then extubation if possible later today * medication reviewed as below * symptomatic treatment Review of Systems - Review of Systems Other: unable to review due to intubated status - Medications/Allergies Allergies/Adverse Reactions: Allergies Allergy/AdvReac Type Severity Reaction Status Date / Time No Known Allergies Allergy Verified 09/13/17 16:31 Medications: Current Medications Acetaminophen (Tylenol) 650 mg NM Q4H PRN PRN Reason: Headache/Fever or Pain Albuterol/Ipratropium (Duoneb) 3 ml NEB [id number] PRN PRN Reason: SOB &/or Wheezing Bisacodyl (Dulcolax) 10 mg NM Q24H PRN PRN Reason: Constipation Enoxaparin Sodium (Lovenox) 30 mg SC 0900 [facility] Last Admin: 09/15/17 08:24 Dose: 30 mg Furosemide (Lasix) 40 mg SLOW IVP 0600 [facility] Furosemide (Lasix) 40 mg SLOW IVP NOW [facility]AIL[facility] Stop: 09/15/17 11:45 Last Admin: 09/15/17 10:00 Dose: 40 mg Piperacillin Sod/Tazobactam (Sod 2.25 gm/ Sodium Chloride) 100 mls @ 200 mls/ hr IVPB Q6HR [facility] Last Admin: 09/15/17 11:35 Dose: 100 mls Amiodarone HCl 450 mg/ (Dextrose/Water) 259 mls @ 0 mls/hr IVPB INF KAILASH PRN Reason: As Directed Last Admin: 09/15/17 10:12 Dose: 259 mls Ondansetron HCl (Zofran) 4 mg IVP Q6H PRN PRN Reason: Nausea/Vomiting Pantoprazole Sodium (Protonix) 40 mg IVP DAILY [facility] Last Admin: 09/15/17 08:24 Dose: 40 mg Sodium Chloride (Flush - Normal Saline) 10 ml IVF PRN PRN PRN Reason: Saline Flush Last Admin: 09/15/17 08:24 Dose: 10 ml
--- NOTE | 2017-09-15 12:47 | PRG ---
DATE OF SERVICE: 09/15/2017 SUBJECTIVE: The patient is now fully awake. He is able to answer questions and respond appropriatel y. They were attempting to wean him; however, he went into atrial fibrillation and therefore cannot be weaned. OBJECTIVE: VITAL SIGNS: Temperature is 96.3, pulse 125, respiratory rate 16, blood pressure 120/67. CHEST: Clear. CARDIOVASCULAR: Irregular rate and rhythm. ABDOMEN: Benign. LABORATORY DATA: Shows a normal CBC. Normal chemistries except for a creatinine of 2.67 and BUN 61. ASSESSMENT: 1. Status post cardiopulmonary arrest. 2. Atrial fibrillation with rapid ventricular rate. RECOMMENDATIONS: Continue present management.
[2017-09-15] MEDS ORDERED: Morphine 4 MG/ML VIAL SLOW IVP PRN (23:29)
[2017-09-15] MEDS: Morphine 4 MG/ML VIAL SLOW IVP PRN (23:43)
[2017-09-16] MEDS: Morphine 4 MG/ML VIAL SLOW IVP PRN (03:39)
[2017-09-16 05:18] LABS: INR-International Normal Ratio 1.5; Prothrombin Time 18.6 SEC (12.0-14.7)
[2017-09-16 05:33] LABS: Cardiac Risk 5.1 (Less than 4.5)
[2017-09-16] MEDS: Furosemide 40 MG/4 ML VIAL SLOW IVP SCH (06:07)
[2017-09-16] MEDS: Piperacillin/Tazobactam 2.25 GM in Sodium Chloride 0.9% 100 ML IVPB SCH ×3 (06:09→17:29)
[2017-09-16] MEDS ORDERED: Sodium Chloride 0.65% Nasal 44 ML BOT EA NARE PRN (07:30)
[2017-09-16] MEDS ORDERED: Acetaminophen 325 MG TAB PO PRN (07:30)
[2017-09-16] MEDS ORDERED: Diabetic Tussin 200 MG/10 ML UDCUP PO PRN (07:30)
[2017-09-16] MEDS ORDERED: Eucerin (Mineral Oil/Petrolatum,White) 30 gm Jar TOP PRN (07:30)
[2017-09-16] MEDS ORDERED: Milk Of Magnesia 30 ML UDCUP PO PRN (07:30)
[2017-09-16] MEDS ORDERED: Artificial Tears 18 DROP/0.9 ML EA EYE PRN (07:30)
[2017-09-16] MEDS ORDERED: Mag-Al 1200 mg/1200 mg/30 ML UDCUP PO PRN (07:30)
[2017-09-16] MEDS: Pantoprazole 40 MG VIAL IVP SCH (08:36)
[2017-09-16] MEDS: Enoxaparin Sodium 30 MG/0.3 ML SYRINGE SC SCH ×2 (08:36→09:48)
[2017-09-16 09:06] LABS: #Lymphocytes 1.4 thou/uL (1.20-3.40); #Monocytes 1.1 thou/uL (0.11-0.59); #Neutrophils 6.5 thou/uL (1.40-6.50); %Basophils 0.3 % (0.0-1.0); %Eosinophils 0.4 % (0.0-10.0); %Lymphocytes 15.1 % (21.0-51.0); %Monocytes 12.4 % (0.0-10.0); %Neutrophils 71.7 % (42.0-75.0); Hemoglobin 15.2 g/dL (14.0-18.0); Mean Corpuscular HGB CONC 31.5 g/dL (32.0-36.0); Mean Corpuscular Hemoglobin 30.1 pg (27.0-31.0); Mean Corpuscular Volume 95.8 fl (80.0-94.0); Mean Platelet Volume 10.5 fL (7.4-10.4); Platelet Count 120 thou/uL (130-400); RBC Distribution Width 13.4 % (11.5-14.5); Red Blood Cell (RBC) Count 5.04 mill/uL (4.70-6.10)
[2017-09-16 09:19] LABS: Anion Gap 17 mmol/L (10-20); BUN (Urea Nitrogen) 53 mg/dL (8.9-20.6); Calc. Creatinine Clearance 60 mL/min (70-130); Calcium 8.7 mg/dL (7.8-10.44); Carbon Dioxide 19 mmol/L (22-29); Chloride 106 mmol/L (98-107); Estimated GFR-MDRD 32; Glucose 90 mg/dL (70-105); Potassium 3.9 mmol/L (3.5-5.1); Sodium 138 mmol/L (136-145)
--- NOTE | 2017-09-16 09:28 | PRG ---
DATE OF SERVICE: 09/16/2017 Mr. Owens is awake and alert. He is in atrial fibrillation. His heart rate fluctuates between 100 and 139. He is on amiodarone. PHYSICAL EXAMINATION: LUNGS: His lungs are clear. HEART: Irregular rhythm. ABDOMEN: Soft and nontender. EXTREMITIES: Without clubbing, cyanosis or edema. LABORATORY DATA: White count 9.8, hemoglobin 15.2, platelets 120,000. Sodium 138, potassium 4.3, chloride 109, bicarbonate 18, BUN 61, creatinine 2.67. IMPRESSION: Status post tachyarrhythmia's requiring [facility]. He was noted to have some hypoxic injury. He does have a good leak. No clinical evidence of vocal cord edema. He is following all commands. He has no neurological deficits. I feel he is a candidate for extubation today. This will be done. I answered questions with family at the bedside. Other problems include chronic kidney disease and atrial fibrillation. Critical care time 35 minutes. LESLEYD
--- NOTE | 2017-09-16 10:21 | PDOC.PN ---
- Subjective Encounter Start Date: 09/16/17 Encounter Start Time: 09:30 pt is awake on vent, follows command, today he has afib with RVR, brother bedside Patient seen and examined for cardiac arrest. No overnight events - Objective Resuscitation Status: Resuscitation Status FULL:Full Resuscitation MAR Reviewed: Yes Vital Signs & Weight: Vital Signs (12 hours) Temp Pulse Resp BP Pulse Ox 09/16/17 08:00 13 09/16/17 07:19 96.6 F L 113 H 10 L 93 L 09/16/17 06:41 130 H 109/73 09/16/17 06:00 12 09/16/17 05:00 119 H 99/76 09/16/17 04:00 16 09/16/17 02:00 14 09/16/17 01:00 121 H 09/16/17 00:00 97.7 F 09/15/17 23:57 13 Weight Admit Weight 276 lb Weight 270 lb 1.06 oz Most Recent Monitor Data Heart Rate from ECG 129 NIBP 131/92 NIBP BP-Mean 118 Respiration from ECG 2 SpO2 95 I&O: 09/15/17 09/16/17 09/17/17 06:59 06:59 06:59 Intake Total 1250.0 1252 0 Output Total 850 3720 1700 Balance 400.0 -2468 -1700 Result Diagrams: 09/16/17 04:46 09/16/17 04:46 Radiology Reviewed by me: Yes (chest xray) EKG Reviewed by me: Yes (afib with RVR) Phys Exam - Physical Examination Constitutional: NAD on vent HEENT: PERRLA, moist MMs, sclera anicteric Neck: no JVD, supple Respiratory: no wheezing, no rales, no rhonchi Cardiovascular: no significant murmur, irregular Gastrointestinal: soft, non-tender, no distention, positive bowel sounds Musculoskeletal: pulses present, edema present trace edema noted Neurological: moves all 4 limbs Lymphatic: no nodes Psychiatric: normal affect Skin: no rash, normal turgor Dx/Plan (1) Cardiac arrest with pulseless electrical activity Code(s): I46.9 - CARDIAC ARREST, CAUSE UNSPECIFIED Status: Acute (2) Acute respiratory failure with hypoxia Code(s): J96.01 - ACUTE RESPIRATORY FAILURE WITH HYPOXIA Status: Acute (3) Acute kidney failure Status: Acute (4) Abnormal LFTs Code(s): R94.5 - ABNORMAL RESULTS OF LIVER FUNCTION STUDIES Status: Acute (5) Coagulopathy Status: Acute (6) Lactic acidosis Code(s): E87.2 - ACIDOSIS Status: Acute (7) Moderate aortic regurgitation Code(s): I35.1 - NONRHEUMATIC AORTIC (VALVE) INSUFFICIENCY Status: Acute (8) Moderate mitral regurgitation Code(s): I34.0 - NONRHEUMATIC MITRAL (VALVE) INSUFFICIENCY Status: Acute (9) Moderate tricuspid regurgitation Code(s): I07.1 - RHEUMATIC TRICUSPID INSUFFICIENCY Status: Acute (10) Myocardial systolic dysfunction Code(s): I51.9 - HEART DISEASE, UNSPECIFIED Status: Acute (11) NSTEMI (non-ST elevated myocardial infarction) Code(s): I21.4 - NON-ST ELEVATION (NSTEMI) MYOCARDIAL INFARCTION Status: Acute (12) Thrombocytopenia Code(s): D69.6 - THROMBOCYTOPENIA, UNSPECIFIED Status: Acute (13) Obesity (BMI 30-39.9) Code(s): E66.9 - OBESITY, UNSPECIFIED Status: Chronic (14) Anoxic brain damage Status: Suspected (15) ENZO (obstructive sleep apnea) Code(s): G47.33 - OBSTRUCTIVE SLEEP APNEA (ADULT) (PEDIATRIC) Status: Suspected (16) Atrial fibrillation with RVR Code(s): I48.91 - UNSPECIFIED ATRIAL FIBRILLATION Status: Acute - Plan cont current plan of care, plan discussed w/ family * continue amiodaron drip * further cardiac evaluation will defer to cardiology * as per pulmonary possibly today will be extubated * updated to brother bedside * medication reviewed as below * symptomatic treatment. Review of Systems - Review of Systems Other: unable to review today as he is intubated - Medications/Allergies Allergies/Adverse Reactions: Allergies Allergy/AdvReac Type Severity Reaction Status Date / Time No Known Allergies Allergy Verified 09/13/17 16:31 Medications: Current Medications Acetaminophen (Tylenol) 650 mg GA Q4H PRN PRN Reason: Headache/Fever or Pain Acetaminophen (Tylenol) 650 mg PO Q4H PRN PRN Reason: Headache/Fever or Mild Pain Al Hydroxide/Mg Hydroxide (Maalox) 15 ml PO Q4H PRN PRN Reason: Heartburn or Indigestion Albuterol/Ipratropium (Duoneb) 3 ml NEB [id number] PRN PRN Reason: SOB &/or Wheezing Artificial Tears (Tears Naturale) 0 drop EA EYE PRN PRN PRN Reason: Dry Eyes Bisacodyl (Dulcolax) 10 mg GA Q24H PRN PRN Reason: Constipation Enoxaparin Sodium (Lovenox) 30 mg SC 0900 [facility] Last Admin: 09/16/17 09:48 Dose: 30 mg Furosemide (Lasix) 40 mg SLOW IVP 0600 [facility] Last Admin: 09/16/17 06:07 Dose: 40 mg Guaifenesin (Robitussin Sf) 200 mg PO Q4H PRN PRN Reason: Cough Piperacillin Sod/Tazobactam (Sod 2.25 gm/ Sodium Chloride) 100 mls @ 200 mls/ hr IVPB Q6HR [facility] Last Admin: 09/16/17 06:09 Dose: 100 mls Amiodarone HCl 450 mg/ (Dextrose/Water) 259 mls @ 0 mls/hr IVPB INF [facility] PRN Reason: As Directed Last Admin: 09/15/17 16:47 Dose: 259 mls Magnesium Hydroxide (Milk Of Magnesium) 30 ml PO DAILYPRN PRN PRN Reason: Constipation Mineral Oil/White Petrolatum (Eucerin Cream) 0 gm TOP BIDPRN PRN PRN Reason: Dry Skin Morphine Sulfate (Morphine) 2 mg SLOW IVP Q4H PRN PRN Reason: Moderate Pain (4-6) Morphine Sulfate (Morphine) 4 mg SLOW IVP Q4H PRN PRN Reason: Severe Pain (7-10) Last Admin: 09/16/17 03:39 Dose: 4 mg Ondansetron HCl (Zofran) 4 mg IVP Q6H PRN PRN Reason: Nausea/Vomiting Pantoprazole Sodium (Protonix) 40 mg IVP DAILY [facility] Last Admin: 09/16/17 08:36 Dose: 40 mg Sodium Chloride (Flush - Normal Saline) 10 ml IVF PRN PRN PRN Reason: Saline Flush Last Admin: 09/16/17 08:36 Dose: 10 ml Sodium Chloride (Bond Nasal Roff 0.65%) 0 ml EA NARE QIDPRN PRN PRN Reason: Nasal Congestion
--- NOTE | 2017-09-16 10:50 | PRG ---
DATE OF SERVICE: 09/16/2017 SUBJECTIVE: The patient is feeling well. He has been extubated. OBJECTIVE: VITAL SIGNS: Pulse is 130, blood pressure 131/92, respiratory rate is 12, temperature 97.0. CHEST: Clear. CARDIOVASCULAR: Regular rate and rhythm. ABDOMEN: Benign. LABORATORY DATA: Shows a platelet count of 120. Chemistries significant for BUN of 53, creatinine 2 .58. ASSESSMENT: 1. Acute cardiopulmonary arrest. 2. Atrial fibrillation. 3. Probable underlying liver disease. RECOMMENDATIONS: Continue present management.
[2017-09-16] MEDS ORDERED: Carvedilol 6.25 MG TAB PO SCH (12:00)
[2017-09-16] MEDS ORDERED: Digoxin 0.5 MG/2 ML AMP SLOW IVP SCH ×2 (12:00→18:00)
[2017-09-16] MEDS: Amiodarone HCl 450 MG in Dextrose 5% in Water 250 ML IVPB SCH (12:51)
[2017-09-16] MEDS ORDERED: Carvedilol 3.125 MG TAB PO SCH (17:00)
--- NOTE | 2017-09-16 17:12 | EKG ---
Test Reason : Blood Pressure : / mmHG Vent. Rate : 142 BPM Atrial Rate : 131 BPM P-R Int : 000 ms QRS Dur : 086 ms QT Int : 378 ms P-R-T Axes : 000 123 106 degrees QTc Int : 581 ms Poor data quality, interpretation may be adversely affected Atrial fibrillation with rapid ventricular response with premature ventricular or aberrantly conducte d complexes Right axis deviation Nonspecific ST and T wave abnormality , probably digitalis effect Abnormal ECG When compared with ECG of 14-DEC-1992 04:57, Significant changes have occurred Confirmed by LORETA FARRIS, SDerrek ([id number]) on 09/16/2017 5:12:33 PM Referred By: ANGELO Confirmed By:DR. Lynne KAN MD
[2017-09-17] MEDS: Piperacillin/Tazobactam 2.25 GM in Sodium Chloride 0.9% 100 ML IVPB SCH ×5 (00:19→23:59)
[2017-09-17] MEDS: Furosemide 40 MG/4 ML VIAL SLOW IVP SCH (05:44)
[2017-09-17 05:53] LABS: ALT (SGPT) 210 U/L (8-55); AST (SGOT) 142 U/L (5-34); Albumin 2.9 g/dL (3.5-5.0); Alkaline Phosphatase 89 U/L (40-150); Anion Gap 14 mmol/L (10-20); BUN (Urea Nitrogen) 38 mg/dL (8.9-20.6); Bilirubin, Total 2.9 mg/dL (0.2-1.2); Calc. Creatinine Clearance 74 mL/min (70-130); Calcium 8.8 mg/dL (7.8-10.44); Carbon Dioxide 27 mmol/L (22-29); Chloride 105 mmol/L (98-107); Estimated GFR-MDRD 41; Globulin 3.3 g/dL (2.4-3.5); Glucose 85 mg/dL (70-105); Magnesium 1.5 mg/dL (1.6-2.6); Phosphorus 3.6 mg/dL (2.3-4.7); Potassium 4.1 mmol/L (3.5-5.1); Protein, Total 6.2 g/dL (6.0-8.3); Sodium 142 mmol/L (136-145)
[2017-09-17] MEDS ORDERED: Ondansetron ODT 4 MG TAB PO PRN (07:05)
[2017-09-17] MEDS ORDERED: Loratadine 10 MG TAB PO PRN (07:05)
[2017-09-17] MEDS ORDERED: hydrALAZINE 20 MG/ML VIAL SLOW IVP PRN (07:05)
[2017-09-17] MEDS ORDERED: Chloraseptic Spray 180 ml Bottle PO PRN (07:05)
[2017-09-17] MEDS ORDERED: Calcium Carbonate 500 MG ChewTAB PO PRN (07:05)
[2017-09-17] MEDS ORDERED: Loperamide HCl 2 MG CAP PO PRN (07:05)
[2017-09-17 07:11] LABS: Hemoglobin 15.7 g/dL (14.0-18.0); Mean Corpuscular HGB CONC 31.7 g/dL (32.0-36.0); Mean Corpuscular Hemoglobin 30.3 pg (27.0-31.0); Mean Corpuscular Volume 95.5 fl (80.0-94.0); Mean Platelet Volume 9.4 fL (7.4-10.4); Platelet Count 123 thou/uL (130-400); RBC Distribution Width 13.3 % (11.5-14.5); Red Blood Cell (RBC) Count 5.17 mill/uL (4.70-6.10)
[2017-09-17] MEDS ORDERED: Magnesium Sulfate 3 GM, Admixture Fee 1 EACH in Sodium Chloride 0.9% 100 ML IVPB SCH (07:15)
[2017-09-17] MEDS: Carvedilol 6.25 MG TAB PO SCH ×2 (07:53→17:29)
[2017-09-17 08:44] LABS: Band 2 % (5-11); Eosinophils 2 % (0-10); Lymphocytes 7 % (21-51); MDiff Complete? YES; Monocytes 14 % (0-10); Neutrophil 60 % (42-75); PLT Morphology Comment Appears Decreased; RBC Morphology Normal; Reactive Lymphocytes 15 % (0-10)
[2017-09-17] MEDS: Enoxaparin Sodium 120 MG/0.8 ML SYRINGE SC SCH (08:44)
--- NOTE | 2017-09-17 09:47 | PDOC.PN ---
- Subjective Encounter Start Date: 09/17/17 Encounter Start Time: 09:00 Patient seen and examined for afib, pt was extubated yesterday, doing well. No new complaints. No overnight events - Objective Resuscitation Status: Resuscitation Status FULL:Full Resuscitation MAR Reviewed: Yes Vital Signs & Weight: Vital Signs (12 hours) Temp Pulse Resp BP Pulse Ox 09/17/17 07:53 135/90 09/17/17 07:22 98.2 F 81 15 98 09/17/17 07:00 98.2 F 09/17/17 04:00 98.0 F 09/17/17 02:05 73 18 97 09/17/17 00:00 98.1 F Weight Admit Weight 276 lb Weight 270 lb 1.06 oz Most Recent Monitor Data Heart Rate from ECG 81 NIBP 116/79 NIBP BP-Mean 84 Respiration from ECG 21 SpO2 85 I&O: 09/16/17 09/17/17 09/18/17 06:59 06:59 06:59 Intake Total 1252 1796 Output Total 1670 4870 285 [facility] -[id number] -[id number] -285 Result Diagrams: 09/17/17 05:16 09/17/17 05:16 EKG Reviewed by me: Yes (afib) Phys Exam - Physical Examination Constitutional: NAD HEENT: PERRLA, moist MMs, sclera anicteric Neck: no JVD, supple Respiratory: no wheezing, no rales, no rhonchi Cardiovascular: no significant murmur, irregular Gastrointestinal: soft, non-tender, no distention, positive bowel sounds Musculoskeletal: pulses present, edema present Neurological: non-focal, normal sensation, moves all 4 limbs Lymphatic: no nodes Psychiatric: normal affect, A&O x 3 Skin: no rash, normal turgor Dx/Plan (1) Acute respiratory failure with hypoxia Code(s): J96.01 - ACUTE RESPIRATORY FAILURE WITH HYPOXIA Status: Acute Comment: s/p extubation 09/16/17 (2) Abnormal LFTs Code(s): R94.5 - ABNORMAL RESULTS OF LIVER FUNCTION STUDIES Status: Acute (3) Acute kidney failure Status: Acute Comment: ? CKD baseline (4) Cardiac arrest with pulseless electrical activity Code(s): I46.9 - CARDIAC ARREST, CAUSE UNSPECIFIED Status: Resolved (5) Coagulopathy Status: Acute (6) Lactic acidosis Code(s): E87.2 - ACIDOSIS Status: Resolved (7) Moderate aortic regurgitation Code(s): I35.1 - NONRHEUMATIC AORTIC (VALVE) INSUFFICIENCY Status: Acute (8) Moderate mitral regurgitation Code(s): I34.0 - NONRHEUMATIC MITRAL (VALVE) INSUFFICIENCY Status: Acute (9) Moderate tricuspid regurgitation Code(s): I07.1 - RHEUMATIC TRICUSPID INSUFFICIENCY Status: Acute (10) Myocardial systolic dysfunction Code(s): I51.9 - HEART DISEASE, UNSPECIFIED Status: Acute (11) NSTEMI (non-ST elevated myocardial infarction) Code(s): I21.4 - NON-ST ELEVATION (NSTEMI) MYOCARDIAL INFARCTION Status: Acute Comment: demand ischemia (12) Thrombocytopenia Code(s): D69.6 - THROMBOCYTOPENIA, UNSPECIFIED Status: Acute (13) Obesity (BMI 30-39.9) Code(s): E66.9 - OBESITY, UNSPECIFIED Status: Chronic (14) Anoxic brain damage Status: Ruled-out (15) ENZO (obstructive sleep apnea) Code(s): G47.33 - OBSTRUCTIVE SLEEP APNEA (ADULT) (PEDIATRIC) Status: Suspected (16) Atrial fibrillation with RVR Code(s): I48.91 - UNSPECIFIED ATRIAL FIBRILLATION Status: Acute (17) Hypomagnesemia Code(s): E83.42 - HYPOMAGNESEMIA Status: Acute - Plan cont current plan of care, continue antibiotics * zosyn as per pulmonary * check hepatitis profile * continue amiodaron drip * cardiology will decide about further testing and procedure if needed * transfer to [facility] if cardio ok * continue lasix. * replace magnesium * medication reviewed as below * symptomatic treatment Review of Systems - Review of Systems Eyes: negative: Pain, Vision Change, Conjunctivae Inflammation, Eyelid Inflammation, Redness, Other ENT: negative: Ear Pain, Ear Discharge, Nose Pain, Nose Discharge, Nose Congestion, Mouth Pain, Mouth Swelling, Throat Pain, Throat Swelling, Other Respiratory: negative: Cough, Dry, Shortness of Breath, Hemoptysis, SOB with Excertion, Pleuritic Pain, Sputum, Wheezing Cardiovascular: negative: chest pain, palpitations, orthopnea, paroxysmal nocturnal dyspnea, edema, light headedness, other Gastrointestinal: negative: Nausea, Vomiting, Abdominal Pain, Diarrhea, Constipation, Melena, Hematochezia, Other Genitourinary: negative: Dysuria, Frequency, Incontinence, Hematuria, Retention , Other Musculoskeletal: negative: Neck Pain, Shoulder Pain, Arm Pain, Back Pain, Hand Pain, Leg Pain, Foot Pain, Other Skin: negative: Rash, Lesions, Boy, Bruising, Other - Medications/Allergies Allergies/Adverse Reactions: Allergies Allergy/AdvReac Type Severity Reaction Status Date / Time No Known Allergies Allergy Verified 09/13/17 16:31 Medications: Current Medications Acetaminophen (Tylenol) 650 mg PO Q4H PRN PRN Reason: Headache/Fever or Mild Pain Al Hydroxide/Mg Hydroxide (Maalox) 15 ml PO Q4H PRN PRN Reason: Heartburn or Indigestion Albuterol/Ipratropium (Duoneb) 3 ml NEB [id number] PRN PRN Reason: SOB &/or Wheezing Artificial Tears (Tears Naturale) 0 drop EA EYE PRN PRN PRN Reason: Dry Eyes Bisacodyl (Dulcolax) 10 mg NV Q24H PRN PRN Reason: Constipation Calcium Carbonate (Tums) 1,000 mg PO Q4H PRN PRN Reason: Heartburn or Indigestion Carvedilol (Coreg) 6.25 mg PO BID-[facility] Last Admin: 09/17/17 07:53 Dose: 6.25 mg Enoxaparin Sodium (Lovenox) 110 mg SC 0900 [facility] [place] Last Admin: 09/17/17 08:44 Dose: 110 mg Furosemide (Lasix) 40 mg SLOW IVP 0600 [facility] [place] Last Admin: 09/17/17 05:44 Dose: 40 mg Guaifenesin (Robitussin Sf) 200 mg PO Q4H PRN PRN Reason: Cough Hydralazine HCl (Apresoline) 10 mg SLOW IVP Q4H PRN PRN Reason: Systolic BP > 180 Piperacillin Sod/Tazobactam (Sod 2.25 gm/ Sodium Chloride) 100 mls @ 200 mls/ hr IVPB Q6HR [facility] [place] Last Admin: 09/17/17 05:43 Dose: 100 mls Amiodarone HCl 450 mg/ (Dextrose/Water) 259 mls @ 0 mls/hr IVPB INF KAILASH PRN Reason: As Directed Last Admin: 09/16/17 12:51 Dose: 259 mls Magnesium Sulfate 3 gm/Miscellaneous Medication 1 each/ Sodium Chloride 106 mls @ 100 mls/hr IVPB NOW [facility] Stop: 09/17/17 12:00 Last Admin: 09/17/17 07:51 Dose: 106 mls Loperamide HCl (Imodium) 2 mg PO PRN PRN PRN Reason: Diarrhea/Loose Stools Loratadine (Claritin) 10 mg PO DAILYPRN PRN PRN Reason: Sinus Symptoms Magnesium Hydroxide (Milk Of Magnesium) 30 ml PO DAILYPRN PRN PRN Reason: Constipation Mineral Oil/White Petrolatum (Eucerin Cream) 0 gm TOP BIDPRN PRN PRN Reason: Dry Skin Morphine Sulfate (Morphine) 2 mg SLOW IVP Q4H PRN PRN Reason: Moderate Pain (4-6) Ondansetron HCl (Zofran) 4 mg IVP Q6H PRN PRN Reason: Nausea/Vomiting Ondansetron HCl (Zofran Odt) 4 mg PO Q6H PRN PRN Reason: Nausea/Vomiting Pantoprazole Sodium (Protonix) 40 mg PO DAILY [facility] [place] Last Admin: 09/17/17 08:39 Dose: 40 mg Phenol (Chloraseptic [place] 180 Ml Bot) 0 ml PO PRN PRN PRN Reason: Sore Throat Sodium Chloride (Flush - Normal Saline) 10 ml IVF PRN PRN PRN Reason: Saline Flush Last Admin: 09/16/17 08:36 Dose: 10 ml Sodium Chloride ([place] Nasal [place] 0.65%) 0 ml EA NARE QIDPRN PRN PRN Reason: Nasal Congestion
[2017-09-17 11:06] LABS: HBCM Index 0.05 S/CO (0-0.79); HBSAg Index 0.18 S/CO (0-0.99); Hep A IgM AB Non-Reactive (NonReactive); Hep A IgM S/CO 0.11 S/CO (0-0.79); Hep B Surf Ag Non-Reactive S/CO (NonReactive); Hep C IgG Ab Non-Reactive (NonReactive); Hep C Index 0.11 S/CO (0-0.79); Hepatitis B Core IGM Abs Non-Reactive (NonReactive)
[2017-09-17] MEDS ORDERED: Milk Of Magnesia 30 ML UDCUP PO PRN (15:57)
[2017-09-17] MEDS ORDERED: Sodium Chloride 0.9% 10 ML ONE (17:16)
[2017-09-17] MEDS ORDERED: Communication Order-Pharmacy FS SCH (17:45)
[2017-09-17] MEDS ORDERED: Magnesium Sulfate 4 GM in Sodium Chloride 0.9% 250 ML 250 ML IVPB SCH (18:00)
--- NOTE | 2017-09-17 19:24 | PRG ---
DATE OF SERVICE: 09/17/2017 SERVICE: Pulmonary Medicine. INTERVAL HISTORY: The patient is doing absolutely fantastic from a respiratory standpoint. He is on room air. He has no complaints of chest pain, nausea, vomiting, fevers or chills. His heart is ezequiel ng worked up. Otherwise, there has been no interval change to his condition. He is about 80% back t o baseline from mentation. He is still little bit foggy and little slow based on what the family is saying. That being said, he is continuing to make progress. I reassured them that he will continue to make progress for a period of roughly 6 weeks. He will probably get pretty close to his baseline, but he may never quite make it there. He has been witnessed to have sleep apnea throughout his hosp ital stay. He will need to continue using the CPAP on the floor. PHYSICAL EXAMINATION: VITAL SIGNS: Afebrile, pulse 71, blood pressure 151/92, respirations 18, saturation 96% on room air. GENERAL: The patient is awake, alert, no apparent distress. LUNGS: Excellent air entry without prolonged expiratory phase, wheezing, rhonchi or crackles. HEART: Normal rate and regular. ABDOMEN: Soft, nontender, and nondistended. Bowel sounds are positive. MUSCULOSKELETAL: No cyanosis or clubbing. The pitting edema was resolved. GENITOURINARY: No Carbajal. NEUROLOGICAL: Nonfocal. LABORATORY DATA: WBC 6.0, hemoglobin 15.7, platelets 123,000 and improving. INR 1.5. Creatinine 2. 09 and beautifully down trending at this time. Basic metabolic profile is otherwise unremarkable. M agnesium 1.5. Total bilirubin 2.9 and gently up trending. AST and ALT are down trending. BNP has i mproved to 712. Urinalysis is unremarkable. Benzodiazepines are on the urine drug screen. Blood cu ltures x4 are unremarkable. ASSESSMENT: 1. Acute hypoxic respiratory failure. 2. Acute systolic and valvular heart failure. 3. Non-ST elevation myocardial infarction. 4. Atrial fibrillation, new onset status post successful cardioversion, but then returned to atrial fibrillation. 5. Pulseless electrical activity arrest, out of hospital. 6. Acute kidney injury versus chronic kidney disease. 7. Obstructive sleep apnea, witnessed at bedside without any sedating medications on board. DISCUSSION AND PLAN: The patient is stable for transition out of the ICU to the telemetry unit. I w ill replace his magnesium. He will need to follow up with me in the outpatient setting to arrange fo r a polysomnogram. At this point, however, he has no requirements for inpatient Pulmonary opinion. As such, I will sign off. Please call with additional questions or concerns moving forward.
[2017-09-17] MEDS: hydrALAZINE 25 MG TAB PO SCH (20:30)
[2017-09-17] MEDS: Polyethylene Glycol 3350 17 GM Packet PO SCH (20:30)
[2017-09-18] MEDS: Furosemide 40 MG/4 ML VIAL SLOW IVP SCH (05:03)
[2017-09-18] MEDS: Piperacillin/Tazobactam 2.25 GM in Sodium Chloride 0.9% 100 ML IVPB SCH (05:03)
[2017-09-18] MEDS: hydrALAZINE 25 MG TAB PO SCH ×3 (05:04→21:05)
[2017-09-18] MEDS: Carvedilol 6.25 MG TAB PO SCH ×3 (05:04→21:05)
[2017-09-18 08:01] LABS: #Eosinphils 0.1 thou/uL (0.0-0.7); #Lymphocytes 1.2 thou/uL (1.20-3.40); #Monocytes 0.8 thou/uL (0.11-0.59); #Neutrophils 3.4 thou/uL (1.40-6.50); %Basophils 0.2 % (0.0-1.0); %Eosinophils 2.6 % (0.0-10.0); %Lymphocytes 21.7 % (21.0-51.0); %Monocytes 14.8 % (0.0-10.0); %Neutrophils 60.7 % (42.0-75.0); Mean Corpuscular HGB CONC 31.9 g/dL (32.0-36.0); Mean Corpuscular Hemoglobin 30.7 pg (27.0-31.0); Mean Corpuscular Volume 96.3 fl (80.0-94.0); Mean Platelet Volume 9.9 fL (7.4-10.4); Platelet Count 150 thou/uL (130-400); RBC Distribution Width 13.1 % (11.5-14.5); Red Blood Cell (RBC) Count 5.55 mill/uL (4.70-6.10); White Blood Cell (WBC) Count 5.6 thou/uL (4.8-10.8)
[2017-09-18 08:20] LABS: ALT (SGPT) 164 U/L (8-55); AST (SGOT) 93 U/L (5-34); Albumin 3.1 g/dL (3.5-5.0); Alkaline Phosphatase 117 U/L (40-150); Anion Gap 13 mmol/L (10-20); BUN (Urea Nitrogen) 32 mg/dL (8.9-20.6); Bilirubin, Total 2.5 mg/dL (0.2-1.2); Calc. Creatinine Clearance 92 mL/min (70-130); Calcium 9.5 mg/dL (7.8-10.44); Carbon Dioxide 26 mmol/L (22-29); Chloride 106 mmol/L (98-107); Estimated GFR-MDRD 57; Globulin 3.7 g/dL (2.4-3.5); Glucose 100 mg/dL (70-105); Potassium 3.9 mmol/L (3.5-5.1); Protein, Total 6.8 g/dL (6.0-8.3); Sodium 141 mmol/L (136-145)
[2017-09-18 08:28] LABS: INR-International Normal Ratio 1.2; Prothrombin Time 15.1 SEC (12.0-14.7)
[2017-09-18] MEDS: Enoxaparin Sodium 120 MG/0.8 ML SYRINGE SC SCH (08:39)
[2017-09-18] MEDS ORDERED: Amiodarone 200 MG TAB PO SCH (09:00)
--- NOTE | 2017-09-18 10:20 | PDOC.PN ---
- Subjective Encounter Start Date: 09/18/17 Encounter Start Time: 07:10 Patient seen and examined. No new complaints. No overnight events - Objective Resuscitation Status: Resuscitation Status FULL:Full Resuscitation MAR Reviewed: Yes Vital Signs & Weight: Vital Signs (12 hours) Temp Pulse Resp BP BP Pulse Ox 09/18/17 07:15 97.4 F L 95 18 156/116 H 97 09/18/17 04:00 97.8 F 72 20 176/133 H 98 Weight Admit Weight 276 lb Weight 252 lb 4.8 oz Most Recent Monitor Data Heart Rate from ECG 94 NIBP 116/79 NIBP BP-Mean 84 Respiration from ECG 17 SpO2 90 I&O: 09/17/17 09/18/17 09/19/17 06:59 06:59 06:59 Intake Total 1796 560 Output Total 4870 685 Balance -3074 -125 Result Diagrams: 09/18/17 07:50 09/18/17 07:50 EKG Reviewed by me: Yes (afib) Phys Exam - Physical Examination Constitutional: NAD HEENT: PERRLA, moist MMs, sclera anicteric Neck: no JVD, supple Respiratory: no wheezing, no rales, no rhonchi Cardiovascular: no significant murmur, irregular Gastrointestinal: soft, non-tender, no distention, positive bowel sounds Musculoskeletal: no edema, pulses present Neurological: non-focal, normal sensation, moves all 4 limbs Lymphatic: no nodes Psychiatric: normal affect, A&O x 3 Skin: no rash, normal turgor, cap refill <2 seconds Dx/Plan (1) Acute respiratory failure with hypoxia Code(s): J96.01 - ACUTE RESPIRATORY FAILURE WITH HYPOXIA Status: Acute Comment: s/p extubation 09/16/17 (2) Abnormal LFTs Code(s): R94.5 - ABNORMAL RESULTS OF LIVER FUNCTION STUDIES Status: Acute (3) Acute kidney failure Status: Acute Comment: ? CKD baseline (4) Cardiac arrest with pulseless electrical activity Code(s): I46.9 - CARDIAC ARREST, CAUSE UNSPECIFIED Status: Resolved (5) Coagulopathy Status: Acute (6) Lactic acidosis Code(s): E87.2 - ACIDOSIS Status: Resolved (7) Moderate aortic regurgitation Code(s): I35.1 - NONRHEUMATIC AORTIC (VALVE) INSUFFICIENCY Status: Acute (8) Moderate mitral regurgitation Code(s): I34.0 - NONRHEUMATIC MITRAL (VALVE) INSUFFICIENCY Status: Acute (9) Moderate tricuspid regurgitation Code(s): I07.1 - RHEUMATIC TRICUSPID INSUFFICIENCY Status: Acute (10) Myocardial systolic dysfunction Code(s): I51.9 - HEART DISEASE, UNSPECIFIED Status: Acute (11) NSTEMI (non-ST elevated myocardial infarction) Code(s): I21.4 - NON-ST ELEVATION (NSTEMI) MYOCARDIAL INFARCTION Status: Acute Comment: demand ischemia (12) Thrombocytopenia Code(s): D69.6 - THROMBOCYTOPENIA, UNSPECIFIED Status: Acute (13) Obesity (BMI 30-39.9) Code(s): E66.9 - OBESITY, UNSPECIFIED Status: Chronic (14) Anoxic brain damage Status: Ruled-out (15) ENZO (obstructive sleep apnea) Code(s): G47.33 - OBSTRUCTIVE SLEEP APNEA (ADULT) (PEDIATRIC) Status: Suspected (16) Atrial fibrillation with RVR Code(s): I48.91 - UNSPECIFIED ATRIAL FIBRILLATION Status: Acute (17) Hypomagnesemia Code(s): E83.42 - HYPOMAGNESEMIA Status: Acute - Plan cont current plan of care, plan discussed w/ family * renal function improving * tomorrow cardiac cath for ischemia work up, if needed will need BMS stent given need for jail anticoagulation with Afib * gentle fluid started, will watch for any fluid overload * now on oral amiodaron, but still rate is fluctuating * DC zosyn * discussed with family bedside * medication reviewed as below * symptomatic treatment. * on room air saturation normal Review of Systems - Review of Systems Eyes: negative: Pain, Vision Change, Conjunctivae Inflammation, Eyelid Inflammation, Redness, Other ENT: negative: Ear Pain, Ear Discharge, Nose Pain, Nose Discharge, Nose Congestion, Mouth Pain, Mouth Swelling, Throat Pain, Throat Swelling, Other Respiratory: negative: Cough, Dry, Shortness of Breath, Hemoptysis, SOB with Excertion, Pleuritic Pain, Sputum, Wheezing Cardiovascular: negative: chest pain, palpitations, orthopnea, paroxysmal nocturnal dyspnea, edema, light headedness, other Gastrointestinal: negative: Nausea, Vomiting, Abdominal Pain, Diarrhea, Constipation, Melena, Hematochezia, Other Genitourinary: negative: Dysuria, Frequency, Incontinence, Hematuria, Retention , Other Musculoskeletal: negative: Neck Pain, Shoulder Pain, Arm Pain, Back Pain, Hand Pain, Leg Pain, Foot Pain, Other Skin: negative: Rash, Lesions, Boy, Bruising, Other - Medications/Allergies Allergies/Adverse Reactions: Allergies Allergy/AdvReac Type Severity Reaction Status Date / Time No Known Allergies Allergy Verified 09/13/17 16:31 Medications: Current Medications Acetaminophen (Tylenol) 650 mg PO Q4H PRN PRN Reason: Headache/Fever or Mild Pain Al Hydroxide/Mg Hydroxide (Maalox) 15 ml PO Q4H PRN PRN Reason: Heartburn or Indigestion Albuterol/Ipratropium (Duoneb) 3 ml NEB [id number] PRN PRN Reason: SOB &/or Wheezing Amiodarone HCl (Cordarone) 400 mg PO BID [facility] Last Admin: 09/18/17 08:39 Dose: 400 mg Artificial Tears (Tears Naturale) 0 drop EA EYE PRN PRN PRN Reason: Dry Eyes Bisacodyl (Dulcolax) 10 mg [place] Q24H PRN PRN Reason: Constipation Calcium Carbonate (Tums) 1,000 mg PO Q4H PRN PRN Reason: Heartburn or Indigestion Carvedilol (Coreg) 6.25 mg PO BID-[facility] Last Admin: 09/18/17 05:04 Dose: 6.25 mg Enoxaparin Sodium (Lovenox) 110 mg SC 0900 [facility] Stop: 09/18/17 21:01 Last Admin: 09/18/17 08:39 Dose: 110 mg Furosemide (Lasix) 40 mg SLOW IVP 0600 [facility] Last Admin: 09/18/17 05:03 Dose: 40 mg Guaifenesin (Robitussin Sf) 200 mg PO Q4H PRN PRN Reason: Cough Hydralazine HCl (Apresoline) 10 mg SLOW IVP Q4H PRN PRN Reason: Systolic BP > 180 Hydralazine HCl (Apresoline) 25 mg PO TID [facility] Last Admin: 09/18/17 05:04 Dose: 25 mg Piperacillin Sod/Tazobactam (Sod 2.25 gm/ Sodium Chloride) 100 mls @ 200 mls/ hr IVPB Q6HR [facility] Last Admin: 09/18/17 05:03 Dose: 100 mls Sodium Chloride (Normal Saline 0.9%) 1,000 mls @ 50 mls/hr IV .Q20H [facility] Loperamide HCl (Imodium) 2 mg PO PRN PRN PRN Reason: Diarrhea/Loose Stools Loratadine (Claritin) 10 mg PO DAILYPRN PRN PRN Reason: Sinus Symptoms Magnesium Hydroxide (Milk Of Magnesium) 30 ml PO DAILYPRN PRN PRN Reason: Constipation Magnesium Hydroxide (Milk Of Magnesium) 30 ml PO DAILYPRN PRN PRN Reason: Constipation Last Admin: 09/17/17 17:29 Dose: 30 ml Mineral Oil/White Petrolatum (Eucerin Cream) 0 gm TOP BIDPRN PRN PRN Reason: Dry Skin Miscellaneous Information (Communication Order-Pharmacy) 0 each FS ONE [facility] Stop: 09/19/17 17:46 Morphine Sulfate (Morphine) 2 mg SLOW IVP Q4H PRN PRN Reason: Moderate Pain (4-6) Ondansetron HCl (Zofran) 4 mg IVP Q6H PRN PRN Reason: Nausea/Vomiting Ondansetron HCl (Zofran Odt) 4 mg PO Q6H PRN PRN Reason: Nausea/Vomiting Pantoprazole Sodium (Protonix) 40 mg PO DAILY [facility] Last Admin: 09/18/17 05:04 Dose: 40 mg Phenol (Chloraseptic [place] 180 Ml Bot) 0 ml PO PRN PRN PRN Reason: Sore Throat Polyethylene Glycol (Miralax) 17 gm PO 2100 [facility] Last Admin: 09/17/17 20:30 Dose: 17 gm Sodium Chloride (Flush - Normal Saline) 10 ml IVF PRN PRN PRN Reason: Saline Flush Last Admin: 09/18/17 08:38 Dose: 10 ml Sodium Chloride ([place] Nasal [place] 0.65%) 0 ml EA NARE QIDPRN PRN PRN Reason: Nasal Congestion
--- NOTE | 2017-09-18 15:05 | PRG ---
DATE OF SERVICE: 09/18/2017 SUBJECTIVE: The patient is without complaint. He is eating well. Has no respiratory issue. Denies any chest pain. PHYSICAL EXAMINATION: VITAL SIGNS: Temperature is 97.4, blood pressure 156/115, pulse of 95. GENERAL: He is alert, sitting up in big chair, no distress. HEENT: Shows anicteric sclerae. CARDIOVASCULAR: Shows normal S1, S2 regular rate and rhythm. CHEST: Shows breath sounds. ABDOMEN: Protuberant but soft, nontender. EXTREMITIES: Shows no edema. LABORATORY DATA: Electrolytes within normal range, creatinine 1.56, bilirubin is 2.5, AST of 93, ALT of 164. ASSESSMENT: 1. Status post cardiopulmonary arrest, recovered without any neurological sequelae. 2. Atrial fibrillation. 3. Non-ST myocardial infarction. 4. Questionable underlying liver disease with portal gastropathy seen on outpatient EGD. This could also reflect a right-sided heart failure. 5. Abnormal LFTs, improving, likely from mild shock liver. 6. Acute kidney injury, resolving. RECOMMENDATIONS: Overall, stable from GI standpoint. No new recommendation. We will follow.
[2017-09-18] MEDS: Amiodarone 200 MG TAB PO SCH (21:06)
[2017-09-18] MEDS: Polyethylene Glycol 3350 17 GM Packet PO SCH (21:06)
[2017-09-19] MEDS ORDERED: Sodium Chloride 0.9% 1,000 ML IV SCH ×2 (06:00→09:00)
[2017-09-19] MEDS: hydrALAZINE 25 MG TAB PO SCH ×3 (06:15→20:18)
[2017-09-19] MEDS: Furosemide 40 MG/4 ML VIAL SLOW IVP SCH (06:15)
[2017-09-19] MEDS: Amiodarone 200 MG TAB PO SCH ×3 (06:15→20:16)
[2017-09-19] MEDS: Carvedilol 6.25 MG TAB PO SCH ×3 (06:15→20:16)
[2017-09-19 07:31] LABS: ALT (SGPT) 125 U/L (8-55); AST (SGOT) 62 U/L (5-34); Albumin 3.1 g/dL (3.5-5.0); Alkaline Phosphatase 117 U/L (40-150); Anion Gap 15 mmol/L (10-20); BUN (Urea Nitrogen) 29 mg/dL (8.9-20.6); Bilirubin, Total 2.1 mg/dL (0.2-1.2); Calc. Creatinine Clearance 103 mL/min (70-130); Calcium 9.6 mg/dL (7.8-10.44); Carbon Dioxide 27 mmol/L (22-29); Chloride 104 mmol/L (98-107); Estimated GFR-MDRD 65; Globulin 3.6 g/dL (2.4-3.5); Glucose 103 mg/dL (70-105); Potassium 3.5 mmol/L (3.5-5.1); Protein, Total 6.7 g/dL (6.0-8.3); Sodium 142 mmol/L (136-145)
[2017-09-19] MEDS ORDERED: Lidocaine 1% (PF) 30 ML VIAL ONE (07:46)
[2017-09-19] MEDS ORDERED: Heparin 10,000 UNITS/1 ML VIAL ONE (08:11)
[2017-09-19] MEDS ORDERED: Fentanyl 100 MCG/2 ML VIAL ONE (08:24)
[2017-09-19] MEDS ORDERED: Midazolam HCl 2 mg/2 ml Vial ONE (08:24)
[2017-09-19] MEDS ORDERED: Protamine Sulfate 50 MG/5 ML VIAL ONE (08:36)
[2017-09-19] MEDS ORDERED: Sodium Chloride 0.9% 200 ML IV SCH (09:00)
--- NOTE | 2017-09-19 10:17 | PDOC.PN ---
- Subjective Encounter Start Date: 09/19/17 Encounter Start Time: 07:30 Patient seen and examined. No new complaints. No overnight events - Objective Resuscitation Status: Resuscitation Status FULL:Full Resuscitation MAR Reviewed: Yes Vital Signs & Weight: Vital Signs (12 hours) Temp Pulse Resp BP BP Pulse Ox 09/19/17 08:57 98.3 F 72 16 162/99 H 97 09/19/17 08:00 98.5 F 61 14 117/84 97 09/19/17 06:15 112 H 132/95 H 09/19/17 04:00 98.1 F 112 H 18 132/95 H 98 09/19/17 00:00 174/91 H 09/18/17 22:48 104 H 17 98 Weight Admit Weight 276 lb 7.355 oz Weight 252 lb 4.8 oz Most Recent Monitor Data Heart Rate from ECG 94 NIBP 116/79 NIBP BP-Mean 84 Respiration from ECG 17 SpO2 90 I&O: 09/18/17 09/19/17 09/20/17 06:59 06:59 06:59 Intake Total 560 1050 Output Total 685 350 Balance -125 700 Result Diagrams: 09/18/17 07:50 09/19/17 06:49 EKG Reviewed by me: Yes (afib) Phys Exam - Physical Examination Constitutional: NAD HEENT: PERRLA, moist MMs, sclera anicteric Neck: no nodes, no JVD, supple, full ROM Respiratory: no wheezing, no rales, no rhonchi Cardiovascular: no significant murmur, irregular Gastrointestinal: soft, non-tender, no distention, positive bowel sounds Musculoskeletal: no edema, pulses present Neurological: non-focal, normal sensation, moves all 4 limbs Lymphatic: no nodes Psychiatric: normal affect, A&O x 3 Skin: no rash, normal turgor Dx/Plan (1) Acute respiratory failure with hypoxia Code(s): J96.01 - ACUTE RESPIRATORY FAILURE WITH HYPOXIA Status: Acute Comment: s/p extubation 09/16/17 (2) Abnormal LFTs Code(s): R94.5 - ABNORMAL RESULTS OF LIVER FUNCTION STUDIES Status: Acute (3) Acute kidney failure Status: Acute Comment: ? CKD baseline (4) Cardiac arrest with pulseless electrical activity Code(s): I46.9 - CARDIAC ARREST, CAUSE UNSPECIFIED Status: Resolved (5) Coagulopathy Status: Acute (6) Lactic acidosis Code(s): E87.2 - ACIDOSIS Status: Resolved (7) Moderate aortic regurgitation Code(s): I35.1 - NONRHEUMATIC AORTIC (VALVE) INSUFFICIENCY Status: Acute (8) Moderate mitral regurgitation Code(s): I34.0 - NONRHEUMATIC MITRAL (VALVE) INSUFFICIENCY Status: Acute (9) Moderate tricuspid regurgitation Code(s): I07.1 - RHEUMATIC TRICUSPID INSUFFICIENCY Status: Acute (10) Myocardial systolic dysfunction Code(s): I51.9 - HEART DISEASE, UNSPECIFIED Status: Acute (11) NSTEMI (non-ST elevated myocardial infarction) Code(s): I21.4 - NON-ST ELEVATION (NSTEMI) MYOCARDIAL INFARCTION Status: Acute Comment: demand ischemia (12) Thrombocytopenia Code(s): D69.6 - THROMBOCYTOPENIA, UNSPECIFIED Status: Acute (13) Obesity (BMI 30-39.9) Code(s): E66.9 - OBESITY, UNSPECIFIED Status: Chronic (14) Anoxic brain damage Status: Ruled-out (15) ENZO (obstructive sleep apnea) Code(s): G47.33 - OBSTRUCTIVE SLEEP APNEA (ADULT) (PEDIATRIC) Status: Suspected (16) Atrial fibrillation with RVR Code(s): I48.91 - UNSPECIFIED ATRIAL FIBRILLATION Status: Acute (17) Hypomagnesemia Code(s): E83.42 - HYPOMAGNESEMIA Status: Acute - Plan cont current plan of care, plan discussed w/ family * cardiac cath is negative * tomorrow DNAIEL and cardioversion for afib * will need repeat echo after discharge * continue current medication as below * symptomatic treatment * discussed with family bedside * cardiology following. * continue lovenox, on discharge elliquis vs xarelto Review of Systems - Review of Systems Eyes: negative: Pain, Vision Change, Conjunctivae Inflammation, Eyelid Inflammation, Redness, Other ENT: negative: Ear Pain, Ear Discharge, Nose Pain, Nose Discharge, Nose Congestion, Mouth Pain, Mouth Swelling, Throat Pain, Throat Swelling, Other Respiratory: negative: Cough, Dry, Shortness of Breath, Hemoptysis, SOB with Excertion, Pleuritic Pain, Sputum, Wheezing Cardiovascular: negative: chest pain, palpitations, orthopnea, paroxysmal nocturnal dyspnea, edema, light headedness, other Gastrointestinal: negative: Nausea, Vomiting, Abdominal Pain, Diarrhea, Constipation, Melena, Hematochezia, Other Genitourinary: negative: Dysuria, Frequency, Incontinence, Hematuria, Retention , Other Musculoskeletal: negative: Neck Pain, Shoulder Pain, Arm Pain, Back Pain, Hand Pain, Leg Pain, Foot Pain, Other Skin: negative: Rash, Lesions, Boy, Bruising, Other - Medications/Allergies Allergies/Adverse Reactions: Allergies Allergy/AdvReac Type Severity Reaction Status Date / Time No Known Allergies Allergy Verified 09/13/17 16:31 Medications: Current Medications Acetaminophen (Tylenol) 650 mg PO Q4H PRN PRN Reason: Headache/Fever or Mild Pain Al Hydroxide/Mg Hydroxide (Maalox) 15 ml PO Q4H PRN PRN Reason: Heartburn or Indigestion Albuterol/Ipratropium (Duoneb) 3 ml NEB [id number] PRN PRN Reason: SOB &/or Wheezing Amiodarone HCl (Cordarone) 400 mg PO TID [facility] Last Admin: 09/19/17 06:15 Dose: 400 mg Artificial Tears (Tears Naturale) 0 drop EA EYE PRN PRN PRN Reason: Dry Eyes Bisacodyl (Dulcolax) 10 mg [place] Q24H PRN PRN Reason: Constipation Calcium Carbonate (Tums) 1,000 mg PO Q4H PRN PRN Reason: Heartburn or Indigestion Carvedilol (Coreg) 6.25 mg PO TID [facility] Last Admin: 09/19/17 06:15 Dose: 6.25 mg Enoxaparin Sodium (Lovenox) 110 mg SC 0900,2100 [facility] Furosemide (Lasix) 40 mg SLOW IVP 0600 [facility] Last Admin: 09/19/17 06:15 Dose: 40 mg Guaifenesin (Robitussin Sf) 200 mg PO Q4H PRN PRN Reason: Cough Hydralazine HCl (Apresoline) 10 mg SLOW IVP Q4H PRN PRN Reason: Systolic BP > 180 Hydralazine HCl (Apresoline) 75 mg PO TID [facility] Last Admin: 09/19/17 06:15 Dose: 75 mg Sodium Chloride (Normal Saline 0.9%) 200 mls @ 0 mls/hr IV ONE [facility] PRN Reason: As Directed Stop: 09/19/17 11:00 Sodium Chloride (Normal Saline 0.9%) 1,000 mls @ 125 mls/hr IV .Q8H [facility] Stop: 09/19/17 13:00 Last Admin: 09/19/17 09:24 Dose: Not Given Loperamide HCl (Imodium) 2 mg PO PRN PRN PRN Reason: Diarrhea/Loose Stools Loratadine (Claritin) 10 mg PO DAILYPRN PRN PRN Reason: Sinus Symptoms Magnesium Hydroxide (Milk Of Magnesium) 30 ml PO DAILYPRN PRN PRN Reason: Constipation Magnesium Hydroxide (Milk Of Magnesium) 30 ml PO DAILYPRN PRN PRN Reason: Constipation Last Admin: 09/17/17 17:29 Dose: 30 ml Mineral Oil/White Petrolatum (Eucerin Cream) 0 gm TOP BIDPRN PRN PRN Reason: Dry Skin Miscellaneous Information (Communication Order-Pharmacy) 0 each FS ONE [facility] Stop: 09/19/17 17:46 Morphine Sulfate (Morphine) 2 mg SLOW IVP Q4H PRN PRN Reason: Moderate Pain (4-6) Ondansetron HCl (Zofran) 4 mg IVP Q6H PRN PRN Reason: Nausea/Vomiting Ondansetron HCl (Zofran Odt) 4 mg PO Q6H PRN PRN Reason: Nausea/Vomiting Pantoprazole Sodium (Protonix) 40 mg PO DAILY [facility] Last Admin: 09/19/17 06:15 Dose: 40 mg Phenol (Chloraseptic [place] 180 Ml Bot) 0 ml PO PRN PRN PRN Reason: Sore Throat Polyethylene Glycol (Miralax) 17 gm PO 2100 [facility] Last Admin: 09/18/17 21:06 Dose: 17 gm Sodium Chloride (Flush - Normal Saline) 10 ml IVF PRN PRN PRN Reason: Saline Flush Last Admin: 09/18/17 08:38 Dose: 10 ml Sodium Chloride ([place] Nasal [place] 0.65%) 0 ml EA NARE QIDPRN PRN PRN Reason: Nasal Congestion
[2017-09-19] MEDS ORDERED: Iopamidol 370 76% 100 ML VIAL ONE (11:34)
[2017-09-19] MEDS: Enoxaparin Sodium 120 MG/0.8 ML SYRINGE SC SCH (20:17)
[2017-09-19] MEDS: Polyethylene Glycol 3350 17 GM Packet PO SCH (20:20)
[2017-09-19] MEDS ORDERED: Enoxaparin Sodium 100 MG/ML SYRINGE SC SCH (21:00)
[2017-09-20 05:38] LABS: ALT (SGPT) 101 U/L (8-55); AST (SGOT) 54 U/L (5-34); Albumin 2.9 g/dL (3.5-5.0); Alkaline Phosphatase 104 U/L (40-150); Anion Gap 14 mmol/L (10-20); BUN (Urea Nitrogen) 24 mg/dL (8.9-20.6); Bilirubin, Total 1.9 mg/dL (0.2-1.2); Calc. Creatinine Clearance 108 mL/min (70-130); Calcium 9.2 mg/dL (7.8-10.44); Carbon Dioxide 28 mmol/L (22-29); Chloride 103 mmol/L (98-107); Estimated GFR-MDRD 69; Globulin 3.3 g/dL (2.4-3.5); Glucose 100 mg/dL (70-105); Potassium 3.5 mmol/L (3.5-5.1); Protein, Total 6.2 g/dL (6.0-8.3); Sodium 141 mmol/L (136-145)
[2017-09-20] MEDS: Furosemide 40 MG TAB PO SCH (08:48)
[2017-09-20] MEDS: Amiodarone 200 MG TAB PO SCH ×2 (08:48→20:15)
[2017-09-20] MEDS: Carvedilol 6.25 MG TAB PO SCH (08:48)
[2017-09-20] MEDS: hydrALAZINE 25 MG TAB PO SCH ×3 (08:49→20:14)
[2017-09-20] MEDS: Enoxaparin Sodium 120 MG/0.8 ML SYRINGE SC SCH ×2 (08:52→20:15)
[2017-09-20] MEDS ORDERED: Potassium Chloride 10 MEQ TAB PO SCH ×2 (09:00→09:15)
[2017-09-20] MEDS ORDERED: PROPOFOL 40 ML ONE (10:27)
--- NOTE | 2017-09-20 11:23 | PDOC.PN ---
- Subjective Encounter Start Date: 09/20/17 Encounter Start Time: 09:40 Patient seen and examined for afib. No new complaints. No overnight events - Objective Resuscitation Status: Resuscitation Status FULL:Full Resuscitation MAR Reviewed: Yes Vital Signs & Weight: Vital Signs (12 hours) Temp Pulse Resp BP BP Pulse Ox 09/20/17 08:49 98 09/20/17 08:48 171/99 H 09/20/17 07:17 97.5 F L 98 16 171/99 H 96 09/20/17 03:41 98.1 F 90 17 127/81 95 09/20/17 00:00 145/78 H Weight Admit Weight 276 lb 7.355 oz Weight 251 lb 6.4 oz Most Recent Monitor Data Heart Rate from ECG 94 NIBP 116/79 NIBP BP-Mean 84 Respiration from ECG 17 SpO2 90 I&O: 09/19/17 09/20/17 09/21/17 06:59 06:59 06:59 Intake Total 1050 1640 Output Total 350 2810 Balance 700 -1170 Result Diagrams: 09/18/17 07:50 09/20/17 05:06 EKG Reviewed by me: Yes (afib) Phys Exam - Physical Examination Constitutional: NAD HEENT: PERRLA, moist MMs, sclera anicteric Neck: no JVD, supple Respiratory: no wheezing, no rales, no rhonchi Cardiovascular: no significant murmur, irregular Gastrointestinal: soft, non-tender, no distention, positive bowel sounds Musculoskeletal: no edema, pulses present Neurological: non-focal, normal sensation, moves all 4 limbs Psychiatric: normal affect, A&O x 3 Skin: no rash, normal turgor Dx/Plan (1) Acute respiratory failure with hypoxia Code(s): J96.01 - ACUTE RESPIRATORY FAILURE WITH HYPOXIA Status: Resolved Comment: s/p extubation 09/16/17 (2) Abnormal LFTs Code(s): R94.5 - ABNORMAL RESULTS OF LIVER FUNCTION STUDIES Status: Acute (3) Acute kidney failure Status: Resolved Comment: ? CKD baseline (4) Cardiac arrest with pulseless electrical activity Code(s): I46.9 - CARDIAC ARREST, CAUSE UNSPECIFIED Status: Resolved (5) Coagulopathy Status: Resolved (6) Lactic acidosis Code(s): E87.2 - ACIDOSIS Status: Resolved (7) Moderate aortic regurgitation Code(s): I35.1 - NONRHEUMATIC AORTIC (VALVE) INSUFFICIENCY Status: Acute (8) Moderate mitral regurgitation Code(s): I34.0 - NONRHEUMATIC MITRAL (VALVE) INSUFFICIENCY Status: Acute (9) Moderate tricuspid regurgitation Code(s): I07.1 - RHEUMATIC TRICUSPID INSUFFICIENCY Status: Acute (10) Myocardial systolic dysfunction Code(s): I51.9 - HEART DISEASE, UNSPECIFIED Status: Acute (11) NSTEMI (non-ST elevated myocardial infarction) Code(s): I21.4 - NON-ST ELEVATION (NSTEMI) MYOCARDIAL INFARCTION Status: Acute Comment: demand ischemia (12) Thrombocytopenia Code(s): D69.6 - THROMBOCYTOPENIA, UNSPECIFIED Status: Acute (13) Obesity (BMI 30-39.9) Code(s): E66.9 - OBESITY, UNSPECIFIED Status: Chronic (14) Anoxic brain damage Status: Ruled-out (15) ENZO (obstructive sleep apnea) Code(s): G47.33 - OBSTRUCTIVE SLEEP APNEA (ADULT) (PEDIATRIC) Status: Suspected (16) Atrial fibrillation with RVR Code(s): I48.91 - UNSPECIFIED ATRIAL FIBRILLATION Status: Acute (17) Hypomagnesemia Code(s): E83.42 - HYPOMAGNESEMIA Status: Acute - Plan cont current plan of care * today DANIEL and cardioversion * will monitor today * expecting discharge tomorrow * medication reviewed as below * symptomatic treatment * cardiology adjusting medication. Review of Systems - Review of Systems ENT: negative: Ear Pain, Ear Discharge, Nose Pain, Nose Discharge, Nose Congestion, Mouth Pain, Mouth Swelling, Throat Pain, Throat Swelling, Other Respiratory: negative: Cough, Dry, Shortness of Breath, Hemoptysis, SOB with Excertion, Pleuritic Pain, Sputum, Wheezing Cardiovascular: negative: chest pain, palpitations, orthopnea, paroxysmal nocturnal dyspnea, edema, light headedness, other Gastrointestinal: negative: Nausea, Vomiting, Abdominal Pain, Diarrhea, Constipation, Melena, Hematochezia, Other Genitourinary: negative: Dysuria, Frequency, Incontinence, Hematuria, Retention , Other Musculoskeletal: negative: Neck Pain, Shoulder Pain, Arm Pain, Back Pain, Hand Pain, Leg Pain, Foot Pain, Other Skin: negative: Rash, Lesions, Boy, Bruising, Other - Medications/Allergies Allergies/Adverse Reactions: Allergies Allergy/AdvReac Type Severity Reaction Status Date / Time No Known Allergies Allergy Verified 09/13/17 16:31 Medications: Current Medications Acetaminophen (Tylenol) 650 mg PO Q4H PRN PRN Reason: Headache/Fever or Mild Pain Al Hydroxide/Mg Hydroxide (Maalox) 15 ml PO Q4H PRN PRN Reason: Heartburn or Indigestion Albuterol/Ipratropium (Duoneb) 3 ml NEB Q2LI-XF PRN PRN Reason: SOB &/or Wheezing Amiodarone HCl (Cordarone) 400 mg PO TID [facility] Last Admin: 09/20/17 08:48 Dose: 400 mg Artificial Tears (Tears Naturale) 0 drop EA EYE PRN PRN PRN Reason: Dry Eyes Bisacodyl (Dulcolax) 10 mg [place] Q24H PRN PRN Reason: Constipation Calcium Carbonate (Tums) 1,000 mg PO Q4H PRN PRN Reason: Heartburn or Indigestion Carvedilol (Coreg) 6.25 mg PO TID [facility] Last Admin: 09/20/17 08:48 Dose: 6.25 mg Enoxaparin Sodium (Lovenox) 110 mg SC 0900,2100 [facility] Last Admin: 09/19/17 20:17 Dose: 110 mg Furosemide (Lasix) 40 mg PO DAILY-[facility] Last Admin: 09/20/17 08:48 Dose: 40 mg Guaifenesin (Robitussin Sf) 200 mg PO Q4H PRN PRN Reason: Cough Hydralazine HCl (Apresoline) 10 mg SLOW IVP Q4H PRN PRN Reason: Systolic BP > 180 Last Admin: 09/19/17 11:26 Dose: 10 mg Hydralazine HCl (Apresoline) 75 mg PO TID [facility] Last Admin: 09/20/17 08:49 Dose: 75 mg Loperamide HCl (Imodium) 2 mg PO PRN PRN PRN Reason: Diarrhea/Loose Stools Loratadine (Claritin) 10 mg PO DAILYPRN PRN PRN Reason: Sinus Symptoms Magnesium Hydroxide (Milk Of Magnesium) 30 ml PO DAILYPRN PRN PRN Reason: Constipation Last Admin: 09/17/17 17:29 Dose: 30 ml Mineral Oil/White Petrolatum (Eucerin Cream) 0 gm TOP BIDPRN PRN PRN Reason: Dry Skin Morphine Sulfate (Morphine) 2 mg SLOW IVP Q4H PRN PRN Reason: Moderate Pain (4-6) Ondansetron HCl (Zofran) 4 mg IVP Q6H PRN PRN Reason: Nausea/Vomiting Ondansetron HCl (Zofran Odt) 4 mg PO Q6H PRN PRN Reason: Nausea/Vomiting Pantoprazole Sodium (Protonix) 40 mg PO DAILY [facility] Last Admin: 09/20/17 08:48 Dose: 40 mg Phenol (Chloraseptic [place] 180 Ml Bot) 0 ml PO PRN PRN PRN Reason: Sore Throat Polyethylene Glycol (Miralax) 17 gm PO 2100 [facility] Last Admin: 09/19/17 20:20 Dose: Not Given Potassium Chloride (Klor-Con 10) 10 meq PO 0915 [facility] Stop: 09/20/17 12:00 Potassium Chloride (Klor-Con 10) 10 meq PO QAM-[facility] Sodium Chloride (Flush - Normal Saline) 10 ml IVF PRN PRN PRN Reason: Saline Flush Last Admin: 09/20/17 08:48 Dose: 10 ml Sodium Chloride ([place] Nasal [place] 0.65%) 0 ml EA NARE QIDPRN PRN PRN Reason: Nasal Congestion
[2017-09-20] MEDS ORDERED: PROPOFOL 200 MG/20 ML VIAL ONE (13:42)
--- NOTE | 2017-09-20 14:27 | ECHO ---
TRANSESOPHAGEAL ECHOCARDIOGRAM: DATE OF PROCEDURE: 09/20/17 INDICATION: This is a 47-year-old gentleman with paroxysmal atrial fibrillation and cardiomyopathy. DESCRIPTION OF PROCEDURE: The patient was taken to the PACU. The patient was sedated by anesthesiology. A transesophageal probe was placed in the distal esophagus and stomach. Echocardiographic images were obtained. The transesophageal probe was removed. FINDINGS: 1. Severe decrease in left ventricular systolic function. 2. Left ventricle is mildly dilated. 3. Moderate mitral regurgitation. 4. Mild tricuspid regurgitation. 5. Small, 0.8 cm, mass and a second 0.2 cm mass noted in the left atrial appendage highly suggestive of thrombus. 6. Atherosclerotic debris in the descending aorta. IMPRESSION: Several small masses suggestive of thrombus in the left atrial appendage.
[2017-09-20] MEDS: Carvedilol 25 MG TAB PO SCH (17:32)
[2017-09-20] MEDS: Apixaban 5 MG TAB PO SCH (20:15)
[2017-09-20] MEDS: Polyethylene Glycol 3350 17 GM Packet PO SCH (20:15)
[2017-09-20] MEDS ORDERED: Amiodarone 200 MG TAB PO SCH (21:00)
[2017-09-20 22:37] LABS: Hemoglobin 15.2 g/dL (14.0-18.0); Platelet Count 155 thou/uL (130-400)
[2017-09-21] MEDS ORDERED: Potassium Chloride 10 MEQ TAB PO SCH (08:00)
[2017-09-21 08:54] LABS: ALT (SGPT) 93 U/L (8-55); AST (SGOT) 62 U/L (5-34); Albumin 2.9 g/dL (3.5-5.0); Alkaline Phosphatase 99 U/L (40-150); Anion Gap 13 mmol/L (10-20); BUN (Urea Nitrogen) 20 mg/dL (8.9-20.6); Calc. Creatinine Clearance 118 mL/min (70-130); Carbon Dioxide 28 mmol/L (22-29); Chloride 103 mmol/L (98-107); Estimated GFR-MDRD 74; Globulin 3.3 g/dL (2.4-3.5); Glucose 95 mg/dL (70-105); Potassium 3.6 mmol/L (3.5-5.1); Protein, Total 6.2 g/dL (6.0-8.3); Sodium 140 mmol/L (136-145)
[2017-09-21] MEDS: Lisinopril 10 MG TAB PO SCH ×2 (08:56→20:59)
[2017-09-21] MEDS: Apixaban 5 MG TAB PO SCH ×2 (08:56→20:59)
[2017-09-21] MEDS: Amiodarone 200 MG TAB PO SCH ×2 (08:57→20:59)
[2017-09-21] MEDS: Carvedilol 25 MG TAB PO SCH ×2 (08:57→17:49)
[2017-09-21] MEDS: Spironolactone 25 MG TAB PO SCH (08:58)
[2017-09-21] MEDS: Furosemide 40 MG TAB PO SCH (08:58)
--- NOTE | 2017-09-21 09:30 | PDOC.PN ---
- Subjective Encounter Start Date: 09/21/17 Encounter Start Time: 07:10 Patient seen and examined for CHF, afib. No new complaints. No overnight events - Objective Resuscitation Status: Resuscitation Status FULL:Full Resuscitation MAR Reviewed: Yes Vital Signs & Weight: Vital Signs (12 hours) Temp Pulse Resp BP BP Pulse Ox 09/21/17 08:56 162/76 H 09/21/17 07:20 98.5 F 111 H 18 162/76 H 97 09/21/17 04:00 98.2 F 90 18 122/93 H 96 09/21/17 00:00 98.3 F 93 18 134/65 96 Weight Admit Weight 276 lb 7.355 oz Weight 258 lb 4.8 oz Most Recent Monitor Data Heart Rate from ECG 94 NIBP 116/79 NIBP BP-Mean 84 Respiration from ECG 17 SpO2 90 I&O: 09/20/17 09/21/17 09/22/17 06:59 06:59 06:59 Intake Total 1860 920 Output Total 3160 700 Balance -1300 220 Result Diagrams: 09/20/17 22:26 09/21/17 07:49 Radiology Reviewed by me: Yes (DANIEL) EKG Reviewed by me: Yes (afib) Phys Exam - Physical Examination Constitutional: NAD HEENT: PERRLA, moist MMs, sclera anicteric Neck: no JVD, supple Respiratory: no wheezing, no rales, no rhonchi Cardiovascular: no significant murmur, irregular Gastrointestinal: soft, non-tender, no distention, positive bowel sounds Musculoskeletal: no edema, pulses present Neurological: non-focal, normal sensation, moves all 4 limbs Lymphatic: no nodes Psychiatric: normal affect, A&O x 3 Skin: no rash, normal turgor Dx/Plan (1) Acute respiratory failure with hypoxia Code(s): J96.01 - ACUTE RESPIRATORY FAILURE WITH HYPOXIA Status: Resolved Comment: s/p extubation 09/16/17 (2) Abnormal LFTs Code(s): R94.5 - ABNORMAL RESULTS OF LIVER FUNCTION STUDIES Status: Acute (3) Acute kidney failure Status: Resolved Comment: ? CKD baseline (4) Cardiac arrest with pulseless electrical activity Code(s): I46.9 - CARDIAC ARREST, CAUSE UNSPECIFIED Status: Resolved (5) Coagulopathy Status: Resolved (6) Lactic acidosis Code(s): E87.2 - ACIDOSIS Status: Resolved (7) Moderate aortic regurgitation Code(s): I35.1 - NONRHEUMATIC AORTIC (VALVE) INSUFFICIENCY Status: Acute (8) Moderate mitral regurgitation Code(s): I34.0 - NONRHEUMATIC MITRAL (VALVE) INSUFFICIENCY Status: Acute (9) Moderate tricuspid regurgitation Code(s): I07.1 - RHEUMATIC TRICUSPID INSUFFICIENCY Status: Acute (10) Myocardial systolic dysfunction Code(s): I51.9 - HEART DISEASE, UNSPECIFIED Status: Acute (11) NSTEMI (non-ST elevated myocardial infarction) Code(s): I21.4 - NON-ST ELEVATION (NSTEMI) MYOCARDIAL INFARCTION Status: Acute Comment: demand ischemia (12) Thrombocytopenia Code(s): D69.6 - THROMBOCYTOPENIA, UNSPECIFIED Status: Acute (13) Obesity (BMI 30-39.9) Code(s): E66.9 - OBESITY, UNSPECIFIED Status: Chronic (14) Anoxic brain damage Status: Ruled-out (15) ENZO (obstructive sleep apnea) Code(s): G47.33 - OBSTRUCTIVE SLEEP APNEA (ADULT) (PEDIATRIC) Status: Suspected (16) Atrial fibrillation with RVR Code(s): I48.91 - UNSPECIFIED ATRIAL FIBRILLATION Status: Acute (17) Hypomagnesemia Code(s): E83.42 - HYPOMAGNESEMIA Status: Acute (18) Thrombus of left atrial appendage Code(s): [id number] - Status: Acute - Plan cont current plan of care * now renal function normal, will start lisinopril * add aldactone * increase coreg 25 mg bid * continue elliquis * if cardiology ok, will discharge * life vest arrangement * medication reviewed as below * symptomatic treatment. Review of Systems - Review of Systems Eyes: negative: Pain, Vision Change, Conjunctivae Inflammation, Eyelid Inflammation, Redness, Other ENT: negative: Ear Pain, Ear Discharge, Nose Pain, Nose Discharge, Nose Congestion, Mouth Pain, Mouth Swelling, Throat Pain, Throat Swelling, Other Respiratory: negative: Cough, Dry, Shortness of Breath, Hemoptysis, SOB with Excertion, Pleuritic Pain, Sputum, Wheezing Cardiovascular: negative: chest pain, palpitations, orthopnea, paroxysmal nocturnal dyspnea, edema, light headedness, other Gastrointestinal: negative: Nausea, Vomiting, Abdominal Pain, Diarrhea, Constipation, Melena, Hematochezia, Other Genitourinary: negative: Dysuria, Frequency, Incontinence, Hematuria, Retention , Other Musculoskeletal: negative: Neck Pain, Shoulder Pain, Arm Pain, Back Pain, Hand Pain, Leg Pain, Foot Pain, Other Skin: negative: Rash, Lesions, Boy, Bruising, Other - Medications/Allergies Allergies/Adverse Reactions: Allergies Allergy/AdvReac Type Severity Reaction Status Date / Time No Known Allergies Allergy Verified 09/13/17 16:31 Medications: Current Medications Acetaminophen (Tylenol) 650 mg PO Q4H PRN PRN Reason: Headache/Fever or Mild Pain Al Hydroxide/Mg Hydroxide (Maalox) 15 ml PO Q4H PRN PRN Reason: Heartburn or Indigestion Albuterol/Ipratropium (Duoneb) 3 ml NEB [id number] PRN PRN Reason: SOB &/or Wheezing Amiodarone HCl (Cordarone) 200 mg PO BID [facility] Last Admin: 09/21/17 08:57 Dose: 200 mg Apixaban (Eliquis) 5 mg PO BID [facility] Last Admin: 09/21/17 08:56 Dose: 5 mg Artificial Tears (Tears Naturale) 0 drop EA EYE PRN PRN PRN Reason: Dry Eyes Bisacodyl (Dulcolax) 10 mg [place] Q24H PRN PRN Reason: Constipation Calcium Carbonate (Tums) 1,000 mg PO Q4H PRN PRN Reason: Heartburn or Indigestion Carvedilol (Coreg) 25 mg PO BID-[facility] Furosemide (Lasix) 40 mg PO DAILY-[facility] Last Admin: 09/21/17 08:58 Dose: 40 mg Guaifenesin (Robitussin Sf) 200 mg PO Q4H PRN PRN Reason: Cough Hydralazine HCl (Apresoline) 10 mg SLOW IVP Q4H PRN PRN Reason: Systolic BP > 180 Last Admin: 09/19/17 11:26 Dose: 10 mg Lisinopril (Zestril) 10 mg PO BID [facility] Last Admin: 09/21/17 08:56 Dose: 10 mg Loperamide HCl (Imodium) 2 mg PO PRN PRN PRN Reason: Diarrhea/Loose Stools Loratadine (Claritin) 10 mg PO DAILYPRN PRN PRN Reason: Sinus Symptoms Magnesium Hydroxide (Milk Of Magnesium) 30 ml PO DAILYPRN PRN PRN Reason: Constipation Last Admin: 09/17/17 17:29 Dose: 30 ml Mineral Oil/White Petrolatum (Eucerin Cream) 0 gm TOP BIDPRN PRN PRN Reason: Dry Skin Morphine Sulfate (Morphine) 2 mg SLOW IVP Q4H PRN PRN Reason: Moderate Pain (4-6) Ondansetron HCl (Zofran) 4 mg IVP Q6H PRN PRN Reason: Nausea/Vomiting Ondansetron HCl (Zofran Odt) 4 mg PO Q6H PRN PRN Reason: Nausea/Vomiting Pantoprazole Sodium (Protonix) 40 mg PO DAILY [facility] Last Admin: 09/21/17 08:57 Dose: 40 mg Phenol (Chloraseptic [place] 180 Ml Bot) 0 ml PO PRN PRN PRN Reason: Sore Throat Polyethylene Glycol (Miralax) 17 gm PO 2100 [facility] Last Admin: 09/20/17 20:15 Dose: 17 gm Sodium Chloride (Flush - Normal Saline) 10 ml IVF PRN PRN PRN Reason: Saline Flush Last Admin: 09/21/17 08:56 Dose: 10 ml Sodium Chloride ([place] Nasal [place] 0.65%) 0 ml EA NARE QIDPRN PRN PRN Reason: Nasal Congestion Spironolactone (Aldactone) 25 mg PO QAM-[facility] Last Admin: 09/21/17 08:58 Dose: 25 mg
--- NOTE | 2017-09-21 11:07 | DIS ---
PRIMARY CARE PHYSICIAN: Dr. Noemi Wilhelm. DATE OF ADMISSION: 09/13/2017 DATE OF DISCHARGE: Pending. PRIMARY DISCHARGE DIAGNOSES: 1. Status post cardiac arrest with pulseless electrical activity. 2. Acute respiratory failure with hypoxia, coagulopathy on admission, Lactic acidosis on admission, atrial fibrillation with rapid ventricular response, acute kidney failure on admission, thrombosed on left atrial appendage, thrombocytopenia, non-ST elevation UT, acute systolic heart failure, moderate aortic regurgitation, moderate mitral regurgitation, moderate tricuspid regurgitation, hypomagnesemi a. SECONDARY DISCHARGE DIAGNOSES: Abnormal liver function tests, obesity with BMI 35. PRIMARY PROCEDURE/OPERATION: The patient had endotracheal intubation and mechanical ventilatory supp ort. Cardiac catheterization was performed by Dr. Gomez and found with normal coronaries. Transesoph ageal echocardiography showed left atrial appendage thrombus. RADIOLOGICAL INVESTIGATION: CT brain was negative for any acute intracranial process. Chest x-ray w as normal. Renal ultrasound was normal. Ultrasound of lower extremity was negative for any DVT. Ec hocardiography showed EF 25% to 30% with moderate MR, AR, and TR, and pulmonary regurgitation. SIGNIFICANT LABORATORY DATA: WBC 5.6, hemoglobin 15.2, platelet 155. INR 1.2, sodium 140, potassium 3.6, BUN 20, creatinine 1.25, calcium 9.0, AST 62, ALT 93, albumin 2.9, PTH 279.9, LDL 68. Urinalys is unremarkable. Urine drug screen negative. Hepatitis profile negative. Blood culture negative. DISCHARGE MEDICATIONS: Amiodarone 200 mg p.o. b.i.d., Eliquis 5 mg p.o. b.i.d., Coreg 25 mg p.o. b.i .d., Lasix 40 mg p.o. daily, lisinopril 10 mg p.o. b.i.d., Protonix 40 mg p.o. daily, and Aldactone 2 5 mg p.o. daily. CONTRAINDICATIONS: None. CODE STATUS: FULL CODE. INPATIENT CONSULTANTS: Cardiology group was following while in hospital. Pulmonary group was managi ng ventilator. GI team was following in hospital. TEST RESULTS PENDING ON DISCHARGE: None. ALLERGIES: No known drug allergy. DISCHARGE PLAN: Post hospital, the patient will be discharged to home. The patient will follow up w ith the [facility]. The patient will follow up with primary care physician on 09/26/2017 a t 4:15 p.m. The patient is instructed to follow up with Dr. Lagunas. HOSPITAL COURSE: A 47-year-old male, who had a procedure at [facility] [place] where patient had a cardiac arrest and from there he was sent to emergency room. The patient was intubated and subsequently he was admitted in CCU. On admission, he was found with atrial fibrillation with r apid ventricular response. Cardiology was consulted. Pulmonary was consulted. The patient did not have any anoxic brain damage. The patient recovered very well and patient was successfully extubated the next day or two. Subsequently, the patient was transferred to telemetry floor. Regarding atrial fibrillation, the patient was treated with amiodarone drip and subsequently oral ami odarone was started. The patient's rate was continuously remained higher side and that is why we dec ided to do cardioversion and transesophageal echocardiography was performed, but that showed left atr ial appendage thrombus and that is why it was not done. While in hospital, he was receiving Lovenox and upon discharge, we changed to Eliquis therapy. For his rate control, we also added digoxin thera py. Currently, the patient is on optimum medical therapy. His blood pressure remaining on higher si de and that is why I advised this patient to continuously monitor his blood pressure at home and see primary care physician for further adjustment of therapy. If this patient's blood pressure is still high, then hydralazine and mononitrate regimen can be added on his regimen. LifeVest arrangement in process. If Cardiology okay, then we will consider discharging this patient today. Otherwise, the patient is on room air, ambulatory, tolerating p.o. well, and he is completely asymptomatic. During this admission, we provided patient education about heart failure, anticoagulation therapy, ed ucation about medication compliance, and education about fluid restriction.
--- NOTE | 2017-09-21 13:43 | PDOC.CTH ---
Cardiology Progress Note - Subjective He is doing well. He denies any chest pain, tightness, pressure, SOB. - Objective Vital Signs Temp Pulse Resp BP BP Pulse Ox 09/21/17 11:07 95 20 151/92 H 97 09/21/17 08:56 162/76 H 09/21/17 07:20 98.5 F 111 H 18 162/76 H 97 09/21/17 04:00 98.2 F 90 18 122/93 H 96 Admit Weight 276 lb 7.355 oz Weight 258 lb 4.8 oz 09/20/17 09/21/17 09/22/17 06:59 06:59 06:59 Intake Total 1860 920 Output Total 3160 700 Balance -1300 220 - Physical Examination General/Neuro: alert & oriented x3, NAD Neck: no JVD present Lungs: CTA, unlabored respirations Heart: RRR Abdomen: NT/ND Extremities: other: (no edema) - Telemetry Telemetry Rhythm: NSR - Labs Result Diagrams: 09/20/17 22:26 09/21/17 07:49 Troponin/CKMB CK-MB (CK-2) 18.3 ng/mL (0-6.6) H* 09/14/17 05:40 Troponin I 0.947 ng/mL (< 0.028) H* 09/14/17 05:40 - Assessment/Plan 1. Out of hospital cardiac arrest 2. Non ischemic CM. 3. Dilated CM 4. Normal coronaries. 5. LA appendage thrombus 6. Afib RVR s/p Cadioversion. PLAN: - Home when lifevest set up. - Continue other meds.
[2017-09-21] MEDS: Polyethylene Glycol 3350 17 GM Packet PO SCH (20:59)
[2017-09-22 05:59] LABS: ALT (SGPT) 92 U/L (8-55); AST (SGOT) 66 U/L (5-34); Albumin 2.8 g/dL (3.5-5.0); Alkaline Phosphatase 95 U/L (40-150); Anion Gap 8 mmol/L (10-20); BUN (Urea Nitrogen) 20 mg/dL (8.9-20.6); Bilirubin, Total 1.7 mg/dL (0.2-1.2); Calc. Creatinine Clearance 115 mL/min (70-130); Calcium 8.7 mg/dL (7.8-10.44); Carbon Dioxide 31 mmol/L (22-29); Chloride 101 mmol/L (98-107); Estimated GFR-MDRD 72; Globulin 3.1 g/dL (2.4-3.5); Glucose 99 mg/dL (70-105); Potassium 3.3 mmol/L (3.5-5.1); Protein, Total 5.9 g/dL (6.0-8.3); Sodium 137 mmol/L (136-145)
[2017-09-22] MEDS: Carvedilol 25 MG TAB PO SCH ×2 (10:09→17:13)
[2017-09-22] MEDS: Amiodarone 200 MG TAB PO SCH ×2 (10:09→21:03)
[2017-09-22] MEDS: Spironolactone 25 MG TAB PO SCH (10:09)
[2017-09-22] MEDS: Apixaban 5 MG TAB PO SCH ×2 (10:09→21:03)
[2017-09-22] MEDS: Furosemide 40 MG TAB PO SCH (10:09)
[2017-09-22] MEDS: Lisinopril 10 MG TAB PO SCH ×2 (10:09→21:03)
--- NOTE | 2017-09-22 11:03 | PDOC.PN ---
- Subjective Encounter Start Date: 09/22/17 Encounter Start Time: 10:15 Subjective: no chest pain, sob or palp -: is sitting in chair watching tv - Objective Resuscitation Status: Resuscitation Status FULL:Full Resuscitation MAR Reviewed: Yes Vital Signs & Weight: Vital Signs (12 hours) Temp Pulse Resp BP Pulse Ox 09/22/17 08:13 98.5 F 100 16 09/22/17 08:11 98.5 F 100 16 98 09/22/17 04:15 96 09/22/17 04:00 98.5 F 82 16 123/69 98 09/22/17 01:00 98 Weight Admit Weight 276 lb 7.355 oz Weight 256 lb 3.2 oz Most Recent Monitor Data Heart Rate from ECG 94 NIBP 116/79 NIBP BP-Mean 84 Respiration from ECG 17 SpO2 90 I&O: 09/21/17 09/22/17 09/23/17 06:59 06:59 06:59 Intake Total 920 1530 Output Total 700 550 Balance 220 980 Result Diagrams: 09/20/17 22:26 09/22/17 05:08 Phys Exam - Physical Examination HEENT: PERRLA, moist MMs Neck: no JVD, supple Respiratory: no wheezing, no rales Cardiovascular: RRR, no significant murmur Gastrointestinal: soft, non-tender, positive bowel sounds Musculoskeletal: no edema, pulses present Neurological: non-focal, moves all 4 limbs Psychiatric: normal affect, A&O x 3 Dx/Plan (1) Afib Code(s): I48.91 - UNSPECIFIED ATRIAL FIBRILLATION Status: Acute Qualifiers: Atrial fibrillation type: paroxysmal Qualified Code(s): I48.0 - Paroxysmal atrial fibrillation Comment: in sinus (2) Cardiomyopathy Code(s): I42.9 - CARDIOMYOPATHY, UNSPECIFIED Status: Acute Comment: non ischemia, ef of 25% (3) Thrombus of left atrial appendage Code(s): NLR6991 - Status: Acute (4) Obesity (BMI 30-39.9) Code(s): E66.9 - OBESITY, UNSPECIFIED Status: Chronic (5) NSTEMI (non-ST elevated myocardial infarction) Code(s): I21.4 - NON-ST ELEVATION (NSTEMI) MYOCARDIAL INFARCTION Status: Acute Comment: demand ischemia (6) Cardiac arrest with pulseless electrical activity Code(s): I46.9 - CARDIAC ARREST, CAUSE UNSPECIFIED Status: Resolved (7) Acute respiratory failure with hypoxia Code(s): J96.01 - ACUTE RESPIRATORY FAILURE WITH HYPOXIA Status: Resolved Comment: s/p extubation 09/16/17 (8) ENZO (obstructive sleep apnea) Code(s): G47.33 - OBSTRUCTIVE SLEEP APNEA (ADULT) (PEDIATRIC) Status: Suspected - Plan is optimized on cardiac meds -: awaiting life vest -: may dc anytime life vest is placed on him -: hemostable -: continue amiod, eliquis, coreg, lisinopril, lasix, spironolactone * . Review of Systems - Medications/Allergies Allergies/Adverse Reactions: Allergies Allergy/AdvReac Type Severity Reaction Status Date / Time No Known Allergies Allergy Verified 09/13/17 16:31 Medications: Current Medications Acetaminophen (Tylenol) 650 mg PO Q4H PRN PRN Reason: Headache/Fever or Mild Pain Al Hydroxide/Mg Hydroxide (Maalox) 15 ml PO Q4H PRN PRN Reason: Heartburn or Indigestion Albuterol/Ipratropium (Duoneb) 3 ml NEB [id number] PRN PRN Reason: SOB &/or Wheezing Amiodarone HCl (Cordarone) 200 mg PO BID [facility] Last Admin: 09/22/17 10:09 Dose: 200 mg Apixaban (Eliquis) 5 mg PO BID [facility] Last Admin: 09/22/17 10:09 Dose: 5 mg Artificial Tears (Tears Naturale) 0 drop EA EYE PRN PRN PRN Reason: Dry Eyes Bisacodyl (Dulcolax) 10 mg VT Q24H PRN PRN Reason: Constipation Calcium Carbonate (Tums) 1,000 mg PO Q4H PRN PRN Reason: Heartburn or Indigestion Carvedilol (Coreg) 25 mg PO BID-[facility] Last Admin: 09/22/17 10:09 Dose: 25 mg Furosemide (Lasix) 40 mg PO DAILY-[facility] Last Admin: 09/22/17 10:09 Dose: 40 mg Guaifenesin (Robitussin Sf) 200 mg PO Q4H PRN PRN Reason: Cough Hydralazine HCl (Apresoline) 10 mg SLOW IVP Q4H PRN PRN Reason: Systolic BP > 180 Last Admin: 09/19/17 11:26 Dose: 10 mg Lisinopril (Zestril) 10 mg PO BID [facility] Last Admin: 09/22/17 10:09 Dose: 10 mg Loperamide HCl (Imodium) 2 mg PO PRN PRN PRN Reason: Diarrhea/Loose Stools Loratadine (Claritin) 10 mg PO DAILYPRN PRN PRN Reason: Sinus Symptoms Magnesium Hydroxide (Milk Of Magnesium) 30 ml PO DAILYPRN PRN PRN Reason: Constipation Last Admin: 09/17/17 17:29 Dose: 30 ml Mineral Oil/White Petrolatum (Eucerin Cream) 0 gm TOP BIDPRN PRN PRN Reason: Dry Skin Morphine Sulfate (Morphine) 2 mg SLOW IVP Q4H PRN PRN Reason: Moderate Pain (4-6) Ondansetron HCl (Zofran) 4 mg IVP Q6H PRN PRN Reason: Nausea/Vomiting Ondansetron HCl (Zofran Odt) 4 mg PO Q6H PRN PRN Reason: Nausea/Vomiting Pantoprazole Sodium (Protonix) 40 mg PO DAILY [facility] Last Admin: 09/22/17 10:09 Dose: 40 mg Phenol (Chloraseptic [place] 180 Ml Bot) 0 ml PO PRN PRN PRN Reason: Sore Throat Polyethylene Glycol (Miralax) 17 gm PO 2100 [facility] Last Admin: 09/21/17 20:59 Dose: Not Given Sodium Chloride (Flush - Normal Saline) 10 ml IVF PRN PRN PRN Reason: Saline Flush Last Admin: 09/21/17 21:00 Dose: 10 ml Sodium Chloride ([place] Nasal [place] 0.65%) 0 ml EA NARE QIDPRN PRN PRN Reason: Nasal Congestion Spironolactone (Aldactone) 25 mg PO QAM-WM [facility] Last Admin: 09/22/17 10:09 Dose: 25 mg
--- NOTE | 2017-09-22 15:37 | PDOC.CTH ---
Cardiology Progress Note - Subjective Doing well. Back in afib. - Objective Vital Signs Temp Pulse Pulse Pulse Resp BP BP 09/22/17 11:15 96 90 124/93 H 130/83 09/22/17 08:13 98.5 F 100 16 09/22/17 08:11 98.5 F 100 16 09/22/17 04:15 09/22/17 04:00 98.5 F 82 16 BP Pulse Ox 09/22/17 11:15 09/22/17 08:13 09/22/17 08:11 98 09/22/17 04:15 96 09/22/17 04:00 123/69 98 Admit Weight 276 lb 7.355 oz Weight 256 lb 3.2 oz 09/21/17 09/22/17 09/23/17 06:59 06:59 06:59 Intake Total 920 1530 Output Total 700 550 Balance 220 980 - Physical Examination General/Neuro: alert & oriented x3, NAD Neck: no JVD present Lungs: CTA, unlabored respirations Heart: other: (irreg) Abdomen: NT/ND Extremities: other: (no edema) - Telemetry Telemetry Rhythm: Afib HR 100's - Labs Result Diagrams: 09/20/17 22:26 09/22/17 05:08 Troponin/CKMB CK-MB (CK-2) 18.3 ng/mL (0-6.6) H* 09/14/17 05:40 Troponin I 0.947 ng/mL (< 0.028) H* 09/14/17 05:40 - Assessment/Plan 1. Out of hospital cardiac arrest 2. Non ischemic CM. 3. Dilated CM 4. Normal coronaries. 5. LA appendage thrombus 6. Afib RVR recurrence. may be due to low K. PLAN: - Pending lifevest set up. - Replace K. - Rate control for now.
[2017-09-22] MEDS ORDERED: Potassium Chloride 20 MEQ TAB PO SCH (15:45)
[2017-09-22] MEDS: Polyethylene Glycol 3350 17 GM Packet PO SCH (21:03)
[2017-09-22 22:31] LABS: Hemoglobin 14.6 g/dL (14.0-18.0); Platelet Count 168 thou/uL (130-400)
[2017-09-23 06:03] LABS: ALT (SGPT) 107 U/L (8-55); AST (SGOT) 86 U/L (5-34); Albumin 2.9 g/dL (3.5-5.0); Alkaline Phosphatase 100 U/L (40-150); Anion Gap 11 mmol/L (10-20); BUN (Urea Nitrogen) 21 mg/dL (8.9-20.6); Bilirubin, Total 1.5 mg/dL (0.2-1.2); Calc. Creatinine Clearance 125 mL/min (70-130); Calcium 8.8 mg/dL (7.8-10.44); Carbon Dioxide 24 mmol/L (22-29); Chloride 103 mmol/L (98-107); Estimated GFR-MDRD 79; Globulin 3.2 g/dL (2.4-3.5); Glucose 102 mg/dL (70-105); Potassium 3.8 mmol/L (3.5-5.1); Protein, Total 6.1 g/dL (6.0-8.3); Sodium 134 mmol/L (136-145)
[2017-09-23] MEDS: Amiodarone 200 MG TAB PO SCH ×2 (08:26→20:32)
[2017-09-23] MEDS: Apixaban 5 MG TAB PO SCH ×2 (08:26→20:32)
[2017-09-23] MEDS: Furosemide 40 MG TAB PO SCH (08:26)
[2017-09-23] MEDS: Spironolactone 25 MG TAB PO SCH (08:27)
[2017-09-23] MEDS: Carvedilol 25 MG TAB PO SCH ×2 (08:27→19:56)
[2017-09-23] MEDS: Lisinopril 10 MG TAB PO SCH ×2 (08:27→20:32)
--- NOTE | 2017-09-23 11:24 | PDOC.PN ---
- Subjective Encounter Start Date: 09/23/17 Encounter Start Time: 08:40 Subjective: no chest pain or palp -: at bedside in room -: is amb in room/hallway - Objective Resuscitation Status: Resuscitation Status FULL:Full Resuscitation MAR Reviewed: Yes Vital Signs & Weight: Vital Signs (12 hours) Temp Pulse Pulse Pulse Resp BP BP 09/23/17 10:35 107 H 99 128/93 H 117/80 09/23/17 07:38 97.9 F 18 L 18 09/23/17 05:34 09/23/17 04:00 98.5 F 83 20 BP Pulse Ox Pulse Ox Pulse Ox 09/23/17 10:35 95 97 09/23/17 07:38 137/96 H 98 09/23/17 05:34 99 09/23/17 04:00 104/74 98 Weight Admit Weight 276 lb 7.355 oz Weight 258 lb 11.2 oz Most Recent Monitor Data Heart Rate from ECG 94 NIBP 116/79 NIBP BP-Mean 84 Respiration from ECG 17 SpO2 90 I&O: 09/22/17 09/23/17 09/24/17 06:59 06:59 06:59 Intake Total 1530 1170 Output Total 550 850 Balance 980 320 Result Diagrams: 09/22/17 22:18 09/23/17 05:22 Phys Exam - Physical Examination HEENT: PERRLA, moist MMs Neck: no JVD, supple Respiratory: no wheezing, no rales Cardiovascular: RRR, no significant murmur Gastrointestinal: soft, non-tender, positive bowel sounds Musculoskeletal: no edema, pulses present Neurological: non-focal, moves all 4 limbs Psychiatric: normal affect, A&O x 3 Dx/Plan (1) Afib Code(s): I48.91 - UNSPECIFIED ATRIAL FIBRILLATION Status: Acute Qualifiers: Atrial fibrillation type: persistent Qualified Code(s): I48.1 - Persistent atrial fibrillation (2) Cardiomyopathy Code(s): I42.9 - CARDIOMYOPATHY, UNSPECIFIED Status: Acute Comment: non ischemic, ef of 25% (3) Thrombus of left atrial appendage Code(s): GWA8263 - Status: Acute (4) Obesity (BMI 30-39.9) Code(s): E66.9 - OBESITY, UNSPECIFIED Status: Chronic (5) NSTEMI (non-ST elevated myocardial infarction) Code(s): I21.4 - NON-ST ELEVATION (NSTEMI) MYOCARDIAL INFARCTION Status: Acute Comment: demand ischemia (6) Cardiac arrest with pulseless electrical activity Code(s): I46.9 - CARDIAC ARREST, CAUSE UNSPECIFIED Status: Resolved (7) Acute respiratory failure with hypoxia Code(s): J96.01 - ACUTE RESPIRATORY FAILURE WITH HYPOXIA Status: Resolved Comment: s/p extubation 09/16/17 (8) ENZO (obstructive sleep apnea) Code(s): G47.33 - OBSTRUCTIVE SLEEP APNEA (ADULT) (PEDIATRIC) Status: Suspected - Plan awaiting life vest -: d/w pt and at bedside -: is on amiodarone, eliquis, coreg, lasix, spirono and lisinopril -: pt back in afib from yesterday -: dc plan per cardio advice * . Review of Systems - Medications/Allergies Allergies/Adverse Reactions: Allergies Allergy/AdvReac Type Severity Reaction Status Date / Time No Known Allergies Allergy Verified 09/13/17 16:31 Medications: Current Medications Acetaminophen (Tylenol) 650 mg PO Q4H PRN PRN Reason: Headache/Fever or Mild Pain Al Hydroxide/Mg Hydroxide (Maalox) 15 ml PO Q4H PRN PRN Reason: Heartburn or Indigestion Albuterol/Ipratropium (Duoneb) 3 ml NEB [id number] PRN PRN Reason: SOB &/or Wheezing Amiodarone HCl (Cordarone) 200 mg PO BID [facility] Last Admin: 09/23/17 08:26 Dose: 200 mg Apixaban (Eliquis) 5 mg PO BID [facility] Last Admin: 09/23/17 08:26 Dose: 5 mg Artificial Tears (Tears Naturale) 0 drop EA EYE PRN PRN PRN Reason: Dry Eyes Bisacodyl (Dulcolax) 10 mg NC Q24H PRN PRN Reason: Constipation Calcium Carbonate (Tums) 1,000 mg PO Q4H PRN PRN Reason: Heartburn or Indigestion Carvedilol (Coreg) 25 mg PO BID-[facility] Last Admin: 09/23/17 08:27 Dose: 25 mg Furosemide (Lasix) 40 mg PO DAILY-[facility] Last Admin: 09/23/17 08:26 Dose: 40 mg Guaifenesin (Robitussin Sf) 200 mg PO Q4H PRN PRN Reason: Cough Hydralazine HCl (Apresoline) 10 mg SLOW IVP Q4H PRN PRN Reason: Systolic BP > 180 Last Admin: 09/19/17 11:26 Dose: 10 mg Lisinopril (Zestril) 10 mg PO BID [facility] Last Admin: 09/23/17 08:27 Dose: 10 mg Loperamide HCl (Imodium) 2 mg PO PRN PRN PRN Reason: Diarrhea/Loose Stools Loratadine (Claritin) 10 mg PO DAILYPRN PRN PRN Reason: Sinus Symptoms Magnesium Hydroxide (Milk Of Magnesium) 30 ml PO DAILYPRN PRN PRN Reason: Constipation Last Admin: 09/17/17 17:29 Dose: 30 ml Mineral Oil/White Petrolatum (Eucerin Cream) 0 gm TOP BIDPRN PRN PRN Reason: Dry Skin Morphine Sulfate (Morphine) 2 mg SLOW IVP Q4H PRN PRN Reason: Moderate Pain (4-6) Ondansetron HCl (Zofran) 4 mg IVP Q6H PRN PRN Reason: Nausea/Vomiting Ondansetron HCl (Zofran Odt) 4 mg PO Q6H PRN PRN Reason: Nausea/Vomiting Pantoprazole Sodium (Protonix) 40 mg PO DAILY [facility] Last Admin: 09/23/17 08:27 Dose: 40 mg Phenol (Chloraseptic [place] 180 Ml Bot) 0 ml PO PRN PRN PRN Reason: Sore Throat Polyethylene Glycol (Miralax) 17 gm PO 2100 [facility] Last Admin: 09/22/17 21:03 Dose: 17 gm Potassium Chloride (Klor-Con 10) 10 meq PO [facility] Sodium Chloride (Flush - Normal Saline) 10 ml IVF PRN PRN PRN Reason: Saline Flush Last Admin: 09/22/17 21:04 Dose: 10 ml Sodium Chloride ([place] Nasal [place] 0.65%) 0 ml EA NARE QIDPRN PRN PRN Reason: Nasal Congestion Spironolactone (Aldactone) 25 mg PO [facility] Last Admin: 09/23/17 08:27 Dose: 25 mg
[2017-09-23 12:03] VITALS: BMI 35.1
[2017-09-23] MEDS ORDERED: Sodium Chloride 0.9% 10 ML ONE (19:40)
[2017-09-23] MEDS: Polyethylene Glycol 3350 17 GM Packet PO SCH (20:33)
[2017-09-24 05:26] LABS: ALT (SGPT) 105 U/L (8-55); AST (SGOT) 74 U/L (5-34); Albumin 2.9 g/dL (3.5-5.0); Alkaline Phosphatase 95 U/L (40-150); Anion Gap 9 mmol/L (10-20); BUN (Urea Nitrogen) 21 mg/dL (8.9-20.6); Bilirubin, Total 1.2 mg/dL (0.2-1.2); Calc. Creatinine Clearance 122 mL/min (70-130); Calcium 8.8 mg/dL (7.8-10.44); Carbon Dioxide 28 mmol/L (22-29); Chloride 103 mmol/L (98-107); Estimated GFR-MDRD 78; Glucose 94 mg/dL (70-105); Potassium 3.8 mmol/L (3.5-5.1); Protein, Total 5.9 g/dL (6.0-8.3); Sodium 136 mmol/L (136-145)
[2017-09-24] MEDS ORDERED: Potassium Chloride 10 MEQ TAB PO SCH (08:00)
[2017-09-24] MEDS: Amiodarone 200 MG TAB PO SCH (08:53)
[2017-09-24] MEDS: Spironolactone 25 MG TAB PO SCH (08:53)
[2017-09-24] MEDS: Carvedilol 25 MG TAB PO SCH (08:53)
[2017-09-24] MEDS: Apixaban 5 MG TAB PO SCH (08:53)
[2017-09-24] MEDS: Lisinopril 10 MG TAB PO SCH (08:54)
[2017-09-24] MEDS: Furosemide 40 MG TAB PO SCH (08:54)
--- NOTE | 2017-09-24 12:24 | CON ---
DATE OF CONSULTATION: 09/24/2017 ELECTROPHYSIOLOGY CONSULTATION REFERRING PHYSICIAN: Dr. Andrea Lagunas. REASON FOR CONSULTATION: Cardiomyopathy and out of hospital arrest. PRIMARY CARE PROVIDER: Dr. Franklin. HISTORY OF PRESENT ILLNESS: Mr. Owens is a very pleasant male who was admitted to [facility] after experiencing an arrest during an endoscopy procedure on 09/13/2017. He had been having some a chen reflux symptoms and is having the diagnostic colonoscopy done. During this procedure records ind icate he went into atrial fibrillation with RVR and then unfortunately lost his pulse. He received m ultiple cycles of CPR and had ROSC. He was brought to the emergency room and was still in atrial fib rillation and underwent synchronized cardioversion restoring sinus rhythm. He remained intubated and has recovered since then throughout his hospital course. He had a left heart catheterization done o n 09/13/2017 which revealed normal coronaries and no intervention was required. An echocardiogram on 09/14/2017 revealed a reduced ejection fraction estimated at 25%-30%. According to records both out of hospital and in hospital, there is no mention of ventricular tachycardia or ventricular fibrillat ion surrounding his arrest. He was hypotensive prior to resting. He does not have a history of atri al fibrillation or heart failure. Currently, he feels very well and is anticipating discharge in the near future. The patient had noticed some increasing leg swelling that was very gradual starting ap proximately 2 weeks prior to being hospitalized. REVIEW OF SYSTEMS: A 12-point review of systems is conducted and is negative except that listed abov e in the HPI. PAST MEDICAL HISTORY: Gastroesophageal reflux disease. PAST SURGICAL HISTORY: None. SOCIAL HISTORY: Negative for tobacco or illicit drug use. Rare alcohol consumption, no binge drinki ng. He is and lives with his . FAMILY HISTORY: Positive for congestive heart failure. Father had a heart attack at age 73. Positi ve for type 2 diabetes. ALLERGIES: No known allergies. HOME MEDICATIONS: Prilosec. PHYSICAL EXAMINATION: VITAL SIGNS: Temperature 97.9, pulse 99, blood pressure 127/93, respirations 16, and 98% oxygen satu ration on room air. GENERAL: Patient is normocephalic, atraumatic. He is alert and sitting upright in the chair during the exam. His speech is clear. His affect is appropriate. NECK: Supple without jugular venous distention. HEENT: His sclerae are anicteric. EOMs are intact. His oral mucosa is moist and pink with adequate dentition. His heart rate is irregularly irregular without significant murmur, rub or gallop. His PMI is nondisplaced. LUNGS: Clear to auscultation bilaterally without wheezes, crackles or rhonchi. Respirations are trevin n and unlabored. ABDOMEN: Obese, but soft and nontender, without palpable masses. Positive bowel tones are noted thr oughout. EXTREMITIES: Warm and dry to touch without clubbing or cyanosis. Trace edema is noted to bilateral lower extremities. NEUROLOGIC: Grossly intact and nonfocal. DATABASE: Review of telemetry and EKGs. Admission EKG shows atrial fibrillation with RVR in rates o f 139 beats per minute. Since that time, patient continues to be in coarse atrial fibrillation with rates generally controlled. Two episodes of nonsustained ventricular tachycardia, 4-6 beats in durat ion at longest have been seen. An atypical atrial flutter is also seen intermittently. LABORATORY DATA: 1. Hematology is unremarkable. Chemistry on 09/24/2017 unremarkable. 2. Echocardiogram on 09/14/2017, EF 25%-30%, severely depressed LV function. Left atrium moderately dilated, right atrium moderately enlarged, moderate MR, mild to moderate AR, moderate to severe TR a nd moderate OK. 3. DANIEL on 09/20/2017 revealed 2 masses suggestive of left atrial appendage thrombus measuring 0.8 cm and 0.2 cm. IMPRESSION: 1. Nonischemic cardiomyopathy, ejection fraction 25%-30%, newly diagnosed. 2. Status post cardiac arrest with extensive CPR and eventual return of spontaneous circulation, hyp otensive prior to arrest. 3. Newly diagnosed atrial fibrillation with rapid ventricular rate upon admission, now rate controll ed. 4. Left atrial appendage thrombus by DANIEL. 5. Normal coronary arteries by left heart catheterization. 6. Nonsustained ventricular tachycardia, 5 beats in duration at longest. RECOMMENDATIONS: At this point, regarding his atrial fibrillation, patient's rates are well controll ed and obviously did not undergo cardioversion given likely thrombus in his left atrial appendage. C ontinue with anticoagulation and rate control. The patient did have a cardiac arrest with hypotensio n preceding his arrest as well as atrial fibrillation with RVR. Extensive review of records did not reveal any mention of ventricular tachycardia or ventricular fibrillation and patient has only had ve ry brief nonsustained ventricular tachycardia that was asymptomatic and monitor during his hospitaliz ation. His cardiomyopathy is newly diagnosed and although his ejection fraction is less than 35%. A t this time, he does not qualify for a secondary prevention ICD implant. He needs a LifeVest for cherelle da prevention and medical management with reevaluation of his left ventricular function in 3 months ' time. Thank you for allowing us to participate in the care of this patient.
--- NOTE | 2017-09-24 12:59 | PDOC.PN ---
- Subjective Encounter Start Date: 09/24/17 Encounter Start Time: 08:30 Subjective: no sob or palp or chest pain -: at bedside - Objective Resuscitation Status: Resuscitation Status FULL:Full Resuscitation MAR Reviewed: Yes Vital Signs & Weight: Vital Signs (12 hours) Temp Pulse Resp BP BP Pulse Ox 09/24/17 08:00 97.9 F 99 16 98 09/24/17 07:04 97.9 F 99 16 127/93 H 98 09/24/17 04:05 98.6 F 101 H 20 134/77 99 Weight Admit Weight 276 lb 7.355 oz Weight 256 lb 3.2 oz Most Recent Monitor Data Heart Rate from ECG 94 NIBP 116/79 NIBP BP-Mean 84 Respiration from ECG 17 SpO2 90 I&O: 09/23/17 09/24/17 09/25/17 06:59 06:59 06:59 Intake Total 1170 420 Output Total 850 400 300 Balance 320 20 -300 Result Diagrams: 09/22/17 22:18 09/24/17 04:19 Phys Exam - Physical Examination HEENT: PERRLA, moist MMs Neck: no JVD, supple Respiratory: no wheezing, no rales Cardiovascular: RRR, no significant murmur Gastrointestinal: soft, non-tender, positive bowel sounds Musculoskeletal: no edema, pulses present Neurological: non-focal, moves all 4 limbs Psychiatric: normal affect, A&O x 3 Dx/Plan (1) Afib Code(s): I48.91 - UNSPECIFIED ATRIAL FIBRILLATION Status: Acute Qualifiers: Atrial fibrillation type: persistent Qualified Code(s): I48.1 - Persistent atrial fibrillation (2) Cardiomyopathy Code(s): I42.9 - CARDIOMYOPATHY, UNSPECIFIED Status: Acute Comment: non ischemic, ef of 25% (3) Thrombus of left atrial appendage Code(s): QCM2261 - Status: Acute (4) Obesity (BMI 30-39.9) Code(s): E66.9 - OBESITY, UNSPECIFIED Status: Chronic (5) NSTEMI (non-ST elevated myocardial infarction) Code(s): I21.4 - NON-ST ELEVATION (NSTEMI) MYOCARDIAL INFARCTION Status: Resolved Comment: demand ischemia (6) Cardiac arrest with pulseless electrical activity Code(s): I46.9 - CARDIAC ARREST, CAUSE UNSPECIFIED Status: Resolved (7) Acute respiratory failure with hypoxia Code(s): J96.01 - ACUTE RESPIRATORY FAILURE WITH HYPOXIA Status: Resolved Comment: s/p extubation 09/16/17 (8) ENZO (obstructive sleep apnea) Code(s): G47.33 - OBSTRUCTIVE SLEEP APNEA (ADULT) (PEDIATRIC) Status: Suspected - Plan his insurance did not approve life vest and is trying to get in -: -touch with his insurance to find out reason for denial -: continue amiod, coreg, lisino, spirono, lasix, eliquis -: to amb as tolerated in hallway -: d/w and pt at bedside * . Review of Systems - Medications/Allergies Allergies/Adverse Reactions: Allergies Allergy/AdvReac Type Severity Reaction Status Date / Time No Known Allergies Allergy Verified 09/13/17 16:31 Medications: Current Medications Acetaminophen (Tylenol) 650 mg PO Q4H PRN PRN Reason: Headache/Fever or Mild Pain Al Hydroxide/Mg Hydroxide (Maalox) 15 ml PO Q4H PRN PRN Reason: Heartburn or Indigestion Albuterol/Ipratropium (Duoneb) 3 ml NEB [id number] PRN PRN Reason: SOB &/or Wheezing Amiodarone HCl (Cordarone) 200 mg PO BID [facility] Last Admin: 09/24/17 08:53 Dose: 200 mg Apixaban (Eliquis) 5 mg PO BID [facility] Last Admin: 09/24/17 08:53 Dose: 5 mg Artificial Tears (Tears Naturale) 0 drop EA EYE PRN PRN PRN Reason: Dry Eyes Bisacodyl (Dulcolax) 10 mg IN Q24H PRN PRN Reason: Constipation Calcium Carbonate (Tums) 1,000 mg PO Q4H PRN PRN Reason: Heartburn or Indigestion Carvedilol (Coreg) 25 mg PO BID-[facility] Last Admin: 09/24/17 08:53 Dose: 25 mg Furosemide (Lasix) 40 mg PO DAILY-[facility] Last Admin: 09/24/17 08:54 Dose: 40 mg Guaifenesin (Robitussin Sf) 200 mg PO Q4H PRN PRN Reason: Cough Hydralazine HCl (Apresoline) 10 mg SLOW IVP Q4H PRN PRN Reason: Systolic BP > 180 Last Admin: 09/19/17 11:26 Dose: 10 mg Lisinopril (Zestril) 10 mg PO BID [facility] Last Admin: 09/24/17 08:54 Dose: 10 mg Loperamide HCl (Imodium) 2 mg PO PRN PRN PRN Reason: Diarrhea/Loose Stools Loratadine (Claritin) 10 mg PO DAILYPRN PRN PRN Reason: Sinus Symptoms Magnesium Hydroxide (Milk Of Magnesium) 30 ml PO DAILYPRN PRN PRN Reason: Constipation Last Admin: 09/17/17 17:29 Dose: 30 ml Mineral Oil/White Petrolatum (Eucerin Cream) 0 gm TOP BIDPRN PRN PRN Reason: Dry Skin Morphine Sulfate (Morphine) 2 mg SLOW IVP Q4H PRN PRN Reason: Moderate Pain (4-6) Ondansetron HCl (Zofran) 4 mg IVP Q6H PRN PRN Reason: Nausea/Vomiting Ondansetron HCl (Zofran Odt) 4 mg PO Q6H PRN PRN Reason: Nausea/Vomiting Pantoprazole Sodium (Protonix) 40 mg PO DAILY [facility] Last Admin: 09/24/17 08:53 Dose: 40 mg Phenol (Chloraseptic Stone 180 Ml Bot) 0 ml PO PRN PRN PRN Reason: Sore Throat Polyethylene Glycol (Miralax) 17 gm PO 2100 [facility] Last Admin: 09/23/17 20:33 Dose: Not Given Potassium Chloride (Klor-Con 10) 10 meq PO [facility] Last Admin: 09/24/17 08:54 Dose: 10 meq Sodium Chloride (Flush - Normal Saline) 10 ml IVF PRN PRN PRN Reason: Saline Flush Last Admin: 09/22/17 21:04 Dose: 10 ml Sodium Chloride (Murray Nasal Stone 0.65%) 0 ml EA NARE QIDPRN PRN PRN Reason: Nasal Congestion Spironolactone (Aldactone) 25 mg PO [facility] Last Admin: 09/24/17 08:53 Dose: 25 mg
[2017-09-24 15:40] VITALS: BP 113/83
[2017-09-24 16:54] VITALS: TEMP 98.6
--- NOTE | 2017-09-26 02:07 | DIS ---
DATE OF ADMISSION: 09/13/2017 DATE OF DISCHARGE: 09/24/2017 DISCHARGE DISPOSITION: To home. BRIEF COURSE DURING HOSPITALIZATION: Please see discharge summary dictated by Dr. Blanco on 018. Patient ended up staying in the hospital for 3 more days for obtaining a LifeVest. Also, pura beckett flipped back into atrial fibrillation, but his rate was well controlled on amiodarone. On the 5th morning, his insurance finally approved LifeVest and has been cleared by Cardiology for discharge. Please note patient asked to follow up with Dr. Lagunas in the outpatient setting in the next 3 robin hs for a repeat echo to see for any improvement from 25-30% that he has at present. He has otherwise remained hemodynamically stable, ambulating and eating well prior to discharge. There is a detailed discharge summary dictated by Dr. Blanco on 09/21/2017 for further details. Please see a face-to-f muriel documentation on [facility] for the day of discharge.
== END 2017-09-24 16:54 | disposition home or self-care (01) | DRG 280 ==
LOC: ERS 13:09 → CCU 15:40 → 2NO 09-17 11:01
PROVIDERS: ADMIT Emergency Medicine; ATTEND Emergency Medicine
PROC: 5A1945Z Respiratory Ventilation, 24-96 Consecutive Hours (ICD-10-PCS; principal; 2017-09-13)
PROC: 4A023N8 Measurement of Cardiac Sampling and Pressure, Bilateral, Percutaneous Approach (ICD-10-PCS; 2017-09-19)
PROC: B2111ZZ Fluoroscopy of Multiple Coronary Arteries using Low Osmolar Contrast (ICD-10-PCS; 2017-09-19)
PROC: 5A2204Z Restoration of Cardiac Rhythm, Single (ICD-10-PCS; 2017-09-20)
DX: I48.91 Unspecified atrial fibrillation (principal); I21.4 Non-ST elevation (NSTEMI) myocardial infarction; J96.01 Acute respiratory failure with hypoxia; I50.21 Acute systolic (congestive) heart failure; K72.00 Acute and subacute hepatic failure without coma; D68.9 Coagulation defect, unspecified; E87.2 Acidosis; N17.9 Acute kidney failure, unspecified; G93.1 Anoxic brain damage, not elsewhere classified; K76.6 Portal hypertension; I46.8 Cardiac arrest due to other underlying condition; D69.6 Thrombocytopenia, unspecified; I08.3 Combined rheumatic disorders of mitral, aortic and tricuspid valves; E83.42 Hypomagnesemia; R94.5 Abnormal results of liver function studies; E66.9 Obesity, unspecified; Z68.35 Body mass index [BMI] 35.0-35.9, adult; G47.33 Obstructive sleep apnea (adult) (pediatric); K21.9 Gastro-esophageal reflux disease without esophagitis; I42.9 Cardiomyopathy, unspecified; I47.9 Paroxysmal tachycardia, unspecified; K31.89 Other diseases of stomach and duodenum; Z79.01 Long term (current) use of anticoagulants
CPT/HCPCS: 36415; 36556; 51702; 70450; 71045; 76770; 80048; 80053; 80061; 80074; 80076; 80306; 81003; 81015; 82330; 82553; 82803; 82805; 83605; 83735; 83880; 83970; 84100; 84443; 84484; 85014; 85018; 85025; 85049; 85347; 85610; 85730; 87040; 92960; 93005; 93010; 93306; 93312; 93454; 93798; 93970; 94002; 94003; 94660; 96365; 99152; A4216; C1769; C9113; J0282; J0360; J1160; J1644; J1650; J1720; J1940; J2001; J2250; J2270; J2543; J2704; J2720; J3010; J3475; J7050; J7070

== ENCOUNTER 2017-10-31 16:16 | Outpatient (CLI) | payer BC ==
[2017-10-31 16:42] LABS: Hemoglobin 14.8 g/dL (14.0-18.0); Mean Corpuscular HGB CONC 32.9 g/dL (32.0-36.0); Mean Corpuscular Hemoglobin 29.4 pg (27.0-31.0); Mean Corpuscular Volume 89.2 fL (78.0-98.0); Mean Platelet Volume 6.9 fL (7.4-10.4); Platelet Count 187 thou/uL (130-400); RBC Distribution Width 11.9 % (11.5-14.5); Red Blood Cell (RBC) Count 5.05 mill/uL (4.70-6.10); White Blood Cell (WBC) Count 5.1 thou/uL (4.8-10.8)
[2017-10-31 16:49] LABS: INR-International Normal Ratio 1.2; PTT 31.7 SEC (22.9-36.1); Prothrombin Time 15.4 SEC (12.0-14.7)
[2017-10-31 17:03] LABS: Anion Gap 13 mmol/L (10-20); BUN (Urea Nitrogen) 28 mg/dL (8.9-20.6); Calc. Creatinine Clearance 0 mL/min (70-130); Calcium 9.5 mg/dL (7.8-10.44); Carbon Dioxide 28 mmol/L (22-29); Chloride 97 mmol/L (98-107); Estimated GFR-MDRD 47; Glucose 89 mg/dL (70-105); Potassium 4.8 mmol/L (3.5-5.1); Sodium 133 mmol/L (136-145)
--- NOTE | 2017-11-01 13:28 | EKG ---
Test Reason : Blood Pressure : / mmHG Vent. Rate : 094 BPM Atrial Rate : 234 BPM P-R Int : 000 ms QRS Dur : 094 ms QT Int : 354 ms P-R-T Axes : 000 120 -40 degrees QTc Int : 442 ms Atrial flutter with variable A-V block Right axis deviation Nonspecific ST and T wave abnormality Abnormal ECG Confirmed by FUAD RIVAS ([id number]) on 11/01/2017 1:28:32 PM Referred By: RADHA Confirmed By:FUAD RIVAS
== END 2017-10-31 16:17 | disposition home or self-care (01) ==
LOC: LABBT 16:16
PROVIDERS: ATTEND Internal Medicine Cardiovascular Disease
DX: Z01.818 Encounter for other preprocedural examination (principal); Z51.81 Encounter for therapeutic drug level monitoring; I48.91 Unspecified atrial fibrillation; Z79.01 Long term (current) use of anticoagulants
CPT/HCPCS: 80048; 85027; 85610; 85730; 93005; 93010

== ENCOUNTER 2017-11-04 07:33 | Outpatient (CLI) | payer BC | END 2017-11-04 07:34 | disposition home or self-care (01) | LOC: BICULT 07:33 | PROVIDERS: ATTEND Internal Medicine Gastroenterology | DX: I85.00 Esophageal varices without bleeding (principal); K21.9 Gastro-esophageal reflux disease without esophagitis; R63.4 Abnormal weight loss; R94.5 Abnormal results of liver function studies | CPT/HCPCS: 76705 ==

== ENCOUNTER → 2017-11-04 | Day surgery (SDC) | payer BC ==
[~2017-11-04] MED LIST: Fentanyl 100 MCG/2 ML VIAL ONE; Heparin 10,000 UNITS/1 ML VIAL ONE; Lidocaine 1% (PF) 30 ML VIAL ONE; PROPOFOL 0 ML ONE; PROPOFOL 20 ML ONE
[2017-11-04 14:39] VITALS: BMI 32.1
--- NOTE | 2017-11-05 13:40 | ECHO ---
TRANSESOPHAGEAL ECHOCARDIOGRAM REPORT: HISTORY: Mr. Owens is a 47-year-old male who originally presented with atrial fibrillation with rapid rates and out of hospital arrest in the setting of a colonoscopy procedure, requiring cardioversion at that [facility]. After that atrial fibrillation recurred, DANIEL was performed and there was suspicion of clots as w ell as severely reduced LV function present. The patient did not get cardioverted then. Has been on amiodarone ever since and he was set up for DANIEL-guided cardioversion for today in preparation for a pulmonary venous isolation. On the other hand, he was noted to be in sinus rhythm today. DANIEL is per formed at rest to rule out intracardiac clots as we are planning a pulmonary venous isolation procedu re in the near future. PROCEDURE: The patient received propofol by Anesthesia specialist. After adequate sedation was achieved, the [facility] transesophageal [facility]ogram probe was passed into the trachea without difficulty. Patient tolerated the procedure well, no complications noted. RESULTS: The left atrium is mildly enlarged. The left atrial appendage is well visualized and contains no hay t. The left appendage velocities up to 40 cm second. This is mildly reduced. The pulmonary veins were clearly seen with flow about 0.5 meter per second velocities through them. The interatrial septum was visualized well and is patent. No ASD or PFO detected. The mitral valve has mild regurgitation. Tricuspid valve has trace regurgitation. Pulmonary valve h as also trace regurgitation. The aortic valve is 3 leaflet and not regurgitant and not stenotic. No other valvular abnormalities were seen. Pericardial space is without effusion. The visualized port ion the ascending and descending aorta without aneurysm, dissection, or significant atheroma. The le ft ventricular systolic function is mildly reduced estimated to be 45-50% with global hypokinesis. M ild left hypertrophy is seen. No outflow tract obstruction is visualized. CONCLUSIONS: 1. No intracardiac clots. 2. Mild reduced left ventricular systolic function, 45-50%. 3. Significant valvular heart disease with mild mitral regurgitation and PI and trace regurgitation. PLAN: Proceed with ablation procedure. POS: [facility]
--- NOTE | 2017-11-09 17:29 | EKG ---
Test Reason : PREOP Blood Pressure : / mmHG Vent. Rate : 047 BPM Atrial Rate : 047 BPM P-R Int : 210 ms QRS Dur : 094 ms QT Int : 400 ms P-R-T Axes : 078 083 073 degrees QTc Int : 354 ms Marked sinus bradycardia with 1st degree A-V block Nonspecific T wave abnormality Abnormal ECG When compared with ECG of 31-OCT-2017 16:19, Significant changes have occurred Confirmed by SHELIA ANNA (2) on 11/09/2017 5:29:18 PM Referred By: RADHA Confirmed By:SHELIA ANNA
== END ==
LOC: CCL 08:34
PROVIDERS: ATTEND Internal Medicine Cardiovascular Disease
PROC: 5A2204Z Restoration of Cardiac Rhythm, Single (ICD-10-PCS; principal; 2017-11-04)
PROC: B246ZZ4 Ultrasonography of Right and Left Heart, Transesophageal (ICD-10-PCS; principal; 2017-11-04)
DX: I48.91 Unspecified atrial fibrillation (principal); I42.8 Other cardiomyopathies; I25.10 Atherosclerotic heart disease of native coronary artery without angina pectoris; I12.9 Hypertensive chronic kidney disease with stage 1 through stage 4 chronic kidney disease, or unspecified chronic kidney disease; N18.2 Chronic kidney disease, stage 2 (mild); Z79.01 Long term (current) use of anticoagulants; Z79.899 Other long term (current) drug therapy
CPT/HCPCS: 93005; 93010; 93312; J1644; J2001; J2704; J3010

== ENCOUNTER 2017-11-05 10:37 | Observation (INO) | payer BC ==
[~2017-11-05 10:37] MED LIST changes: -Fentanyl 100 MCG/2 ML VIAL ONE; -Heparin 10,000 UNITS/1 ML VIAL ONE; -Lidocaine 1% (PF) 30 ML VIAL ONE; -PROPOFOL 0 ML ONE; -PROPOFOL 20 ML ONE; +PROPOFOL 200 MG/20 ML VIAL ONE
[2017-11-05] MEDS ORDERED: PROPOFOL 200 MG/20 ML VIAL ONE (12:35)
[2017-11-05] MEDS ORDERED: Heparin 30,000 units/30 ml VIAL ONE (12:35)
[2017-11-05] MEDS ORDERED: PHENYLEPHRINE-NS 100 MCG/ML 10 ML SYRINGE ONE (12:35)
[2017-11-05] MEDS ORDERED: ePHEDrine/0.9% NaCl/PF SYRINGE 50 mg/10 ml ONE (12:35)
[2017-11-05] MEDS ORDERED: Lidocaine 1% PF 5 ML VIAL ONE (12:35)
[2017-11-05] MEDS ORDERED: Heparin 25,000 units/D5W 500 ML ONE (14:42)
[2017-11-05] MEDS ORDERED: Heparin 10,000 UNITS/1 ML VIAL ONE (15:38)
[2017-11-05] MEDS ORDERED: Isoproterenol 0.2 MG/1 ML AMP ONE (15:39)
[2017-11-05] MEDS ORDERED: Protamine Sulfate 50 MG/5 ML VIAL ONE (17:07)
[2017-11-05] MEDS ORDERED: Furosemide 40 MG/4 ML VIAL ONE (17:07)
[2017-11-05] MEDS ORDERED: Promethazine HCl 25 MG/ML VIAL IM PRN (17:52)
[2017-11-05] MEDS ORDERED: Promethazine HCl 25 MG/ML VIAL SLOW IVP PRN (17:52)
[2017-11-05] MEDS ORDERED: Ondansetron HCl/PF 4 MG/2 ML Vial ONE (17:52)
[2017-11-05] MEDS ORDERED: Ondansetron HCl/PF 4 MG/2 ML Vial IVP PRN (17:52)
[2017-11-05] MEDS ORDERED: Acetaminophen/Codeine 30-300mg Tablet PO PRN ×2 (22:15)
[2017-11-05] MEDS ORDERED: Apixaban 5 MG TAB PO SCH (22:30)
--- NOTE | 2017-11-06 01:30 | OP ---
DATE OF PROCEDURE: 11/05/2017 ELECTROPHYSIOLOGY STUDY AND RADIOFREQUENCY ABLATION REPORT REFERRING PHYSICIAN: Andrea Lagunas MD REASON FOR PROCEDURE: Mr. Owens is a 47-year-old male with prior history of a cardiac arrest in the s etting of atrial fibrillation with rapid rate requiring brief resuscitation on 09/13/2017 and also ca rdioversion. No ventricular tachycardia noted, but his LVEF initially was 25%-30%. He was placed on amiodarone and eventually self-converted and his DANIEL prior to this procedure showed LVEF 45%-50%, ma rked improvement. He is here for pulmonary venous isolation procedure in hopes of being able to disc ontinue the amiodarone eventually. DESCRIPTION OF PROCEDURE: The patient received propofol by anesthesia specialist with general anesth esia. The esophageal probe was passed into the esophagus for temperature monitoring throughout the c ase. The left and right femoral venous area was prepped, draped, anesthetized using subcutaneous lid ocaine. Under ultrasound guidance, both femoral veins were accessed x2. On the left, an 11-Bahamian I CE catheter was used to monitor the transseptal procedure any accumulation of pericardial fluid throughout the procedure. The other sheath was a Preface sheath, which was used to place the CS cat heter. Following that, the transseptal procedure was performed using an SL1 catheter x2. One of the transse ptal punctures were used to exchange it to the deflectable sheath. Fluoroscopy and ultrasound guidan ce throughout this to achieve the transseptal puncture without complication. Heparin was administere d at the time of the puncture and ACT was monitored to keep the ACT at 350. Left atrial 3D mapping was obtained with the deflectable SL catheter and pulmonary venous isolation p rocedure was performed using a ThermoCool SF ST mapping and ablation probe. All 4 pulmonary veins we re isolated. Again, temperature were monitored throughout to minimize esophageal thermal injury. Following the case, Isuprel was administered at 20 mcg and we are monitoring for any recurrent reconn ections. All reconnections were re-ablated. Following that, the sheaths were pulled to the right si de. The induction of the atrial arrhythmias was attempted, but was not successful. The cardiac silh ouette did not change and the ICE catheter revealed no pericardial effusion. The heparin was discont inued and the anticoagulation was reversed with protamine. The numbers we obtained was HV 69, AH 89. The stimulation test did not induce arrhythmia. The cavotricuspid isthmus ablation was performed prolonging the transisthmus conduction. CONCLUSION: 1. Successful pulmonary venous isolation procedure. 2. Cavotricuspid isthmus ablation. 3. No inducible ventricular arrhythmias. PLAN: Continue amiodarone short term and taper off in a couple of months. Continue monitoring LV fu nction.
[2017-11-06 03:54] VITALS: BMI 33.2
[2017-11-06 07:52] VITALS: BP 110/55; TEMP 98.4
[2017-11-06] MEDS ORDERED: Spironolactone 25 MG TAB PO SCH (08:00)
[2017-11-06] MEDS ORDERED: Carvedilol 25 MG TAB PO SCH (08:00)
[2017-11-06] MEDS ORDERED: Apixaban 5 MG TAB PO SCH (09:00)
[2017-11-06] MEDS ORDERED: Furosemide 40 MG TAB PO SCH (09:00)
[2017-11-06] MEDS ORDERED: Lisinopril 10 MG TAB PO SCH (09:00)
[2017-11-06] MEDS ORDERED: Amiodarone 200 MG TAB PO SCH (09:00)
--- NOTE | 2017-11-06 13:21 | DIS ---
DATE OF ADMISSION: 11/05/2017 DATE OF DISCHARGE: 11/06/2017 ADMITTING DIAGNOSES: 1. Paroxysmal atrial fibrillation causing cardiac arrest in the past. A. Atrial flutter while on amiodarone therapy, now in sinus rhythm. B. History of cardiomyopathy 35%, improving on last DANIEL 11/04/2017 with EF 45-50%. 2. Chronic anticoagulation. 3. This is an elective pulmonary venous isolation and cavotricuspid isthmus ablation on 10/26/2017 yi Casiano. HOSPITAL COURSE: Mr. Owens was admitted for the above-mentioned procedure. He tolerated the procedur e overnight well. He underwent a pulmonary venous isolation as well as a cavotricuspid isthmus ablat ion with total burn time of 25 minutes. He had no evidence of effusion post-ablation, he remained st able overnight. OBJECTIVE: VITAL SIGNS: Today his blood pressure is 110/55, heart rate 53, respiration is 20, and temperature 9 8.4 degrees Fahrenheit. GENERAL: Alert and oriented man in no apparent distress. NECK: Supple. Jugular veins not distended. CHEST: Coarse without crackles. HEART: Heart sounds are regular to rate and rhythm. No murmur or gallop. ABDOMEN: Benign. Bowel sounds positive. EXTREMITIES: Lower extremities without edema, clubbing or cyanosis. Pulses are adequate. NEUROLOGIC: Patient nonfocal. Bilateral groin catheter insertion site is without reaction or hematoma. The telemetry strips reviewed revealing sinus bradycardia, occasional PVCs. ASSESSMENT AND PLAN: 1. Mr. Owens is a pleasant 47-year-old man status post pulmonary venous isolation CTI ablation proced ure yesterday. He tolerated the procedure well and is stable for discharge. 2. History of cardiomyopathy with marked improvement in DANIEL at this point reasonable to consider [facility]. We discussed pros and cons about that and he agrees. 3. Chronic anticoagulation. Continue Eliquis without interruption for intermediate term. 4. Chronic amiodarone use, continue amiodarone at this time. 5. History of congestive heart failure, currently reasonably controlled. Will send him home with 3 days of Lasix post-ablation. Avoid fluid overload and as needed along with a potassium replacement K-Dur recurrent as well when taken with Lasix. 6. Also, will add Carafate 1 gram q.i.d. for 2 weeks and Protonix 40 mg daily for next month. His h ome medications will be a reduced by stopping digoxin and spironolactone. On the other hand, he will continue amiodarone 200 mg a day, Carvedilol 25 mg twice a day, furosemide 40 mg in the morning as n eeded and lisinopril 10 mg daily, spironolactone will be also stopped.
--- NOTE | 2017-11-09 17:43 | EKG ---
Test Reason : STAT Blood Pressure : / mmHG Vent. Rate : 054 BPM Atrial Rate : 054 BPM P-R Int : 196 ms QRS Dur : 096 ms QT Int : 420 ms P-R-T Axes : 071 085 039 degrees QTc Int : 398 ms Sinus bradycardia Nonspecific T wave abnormality Abnormal ECG When compared with ECG of 04-NOV-2017 10:16, (Unconfirmed) Nonspecific T wave abnormality, worse in Inferior leads Confirmed by SHELIA ANNA (2) on 11/09/2017 5:43:35 PM Referred By: RADHA Confirmed By:SHELIA ANNA
== END 2017-11-06 09:13 | disposition home or self-care (01) ==
LOC: CCL 10:37 → 2SW 18:55
PROVIDERS: ADMIT Internal Medicine Cardiovascular Disease; ATTEND Internal Medicine Cardiovascular Disease
DX: I48.0 Paroxysmal atrial fibrillation (principal); I13.0 Hypertensive heart and chronic kidney disease with heart failure and stage 1 through stage 4 chronic kidney disease, or unspecified chronic kidney disease; I50.9 Heart failure, unspecified; N18.2 Chronic kidney disease, stage 2 (mild); Z79.01 Long term (current) use of anticoagulants; Z79.899 Other long term (current) drug therapy; Z79.2 Long term (current) use of antibiotics
CPT/HCPCS: 76942; 85347; 90471; 90732; 92960; 93005; 93010; 93613; 93623; 93656; 93657; 93662; 96374; C1730; C1731; C1732; C1759; C1769; G0009; G0378; J1644; J1940; J2001; J2405; J2704; J2720

== ENCOUNTER 2017-11-13 10:30 | Emergency (ER) | payer BC ==
[2017-11-13 11:00] LABS: #Eosinphils 0.1 thou/uL (0.0-0.7); #Monocytes 0.7 thou/uL (0.11-0.59); %Basophils 0.3 % (0.0-1.0); %Eosinophils 2.6 % (0.0-10.0); %Lymphocytes 40.9 % (21.0-51.0); %Monocytes 14.1 % (0.0-10.0); %Neutrophils 42.3 % (42.0-75.0); Hemoglobin 14.6 g/dL (14.0-18.0); Mean Corpuscular HGB CONC 33.1 g/dL (32.0-36.0); Mean Corpuscular Hemoglobin 29.5 pg (27.0-31.0); Mean Corpuscular Volume 89.1 fL (78.0-98.0); Mean Platelet Volume 6.7 fL (7.4-10.4); Platelet Count 209 thou/uL (130-400); RBC Distribution Width 12.2 % (11.5-14.5); Red Blood Cell (RBC) Count 4.95 mill/uL (4.70-6.10); White Blood Cell (WBC) Count 4.8 thou/uL (4.8-10.8)
--- NOTE | 2017-11-13 11:10 | RAD ---
FRONTAL VIEW CHEST: Date 11/13/17 INDICATION: Chest pain. COMPARISON: 09/13/17. FINDINGS: The cardiac silhouette is prominent. There is no consolidation, effusion, or discrete pneumothorax. IMPRESSION: 1. No focal consolidation. 2. Prominent cardiac silhouette. POS: [facility]
[2017-11-13 11:18] LABS: INR-International Normal Ratio 1.2; PTT 32.9 SEC (22.9-36.1); Prothrombin Time 15.1 SEC (12.0-14.7)
[2017-11-13 11:25] LABS: ALT (SGPT) 34 U/L (8-55); AST (SGOT) 25 U/L (5-34); Albumin 3.9 g/dL (3.5-5.0); Alkaline Phosphatase 66 U/L (40-150); Anion Gap 11 mmol/L (10-20); BUN (Urea Nitrogen) 19 mg/dL (8.9-20.6); Bilirubin, Total 0.6 mg/dL (0.2-1.2); CK (CPK) 75 U/L (30-200); Calc. Creatinine Clearance 0 mL/min (70-130); Calcium 9.4 mg/dL (7.8-10.44); Carbon Dioxide 29 mmol/L (22-29); Chloride 102 mmol/L (98-107); Estimated GFR-MDRD 58; Globulin 3.4 g/dL (2.4-3.5); Glucose 75 mg/dL (70-105); Potassium 4.1 mmol/L (3.5-5.1); Protein, Total 7.3 g/dL (6.0-8.3); Sodium 138 mmol/L (136-145)
[2017-11-13 11:30] LABS: CKMB 2.3 ng/mL (0-6.6); Troponin I 0.036 ng/mL (< 0.028)
[2017-11-13] MEDS ORDERED: Midazolam HCl 5 mg/ml Vial ONE (11:41)
[2017-11-13] MEDS ORDERED: Fentanyl 100 MCG/2 ML VIAL ONE (11:41)
== END 2017-11-13 13:22 | disposition home or self-care (01) ==
LOC: ERS 10:30
DX: I48.92 Unspecified atrial flutter (principal)
CPT/HCPCS: 71045; 80053; 82550; 82553; 83880; 84484; 85025; 85610; 85730; 92960; 93005; 94760; 96360; 99152; J2250; J3010

== ENCOUNTER 2018-02-05 09:30 | Day surgery (SDC) | payer BC ==
[2018-02-04 13:06] VITALS: BMI 33.9
[2018-02-05] MEDS ORDERED: PROPOFOL 200 MG/20 ML VIAL ONE (14:34)
--- NOTE | 2018-02-05 14:47 | OP ---
DATE OF PROCEDURE: 02/05/2018 PROCEDURE: Esophagogastroduodenoscopy. PHYSICIAN: Jalen Ahumada M.D. PAIN MEDICATION: Given by Anesthesiology Department. PREPROCEDURE DIAGNOSIS: Follow up on esophageal varices. POSTOPERATIVE DIAGNOSES: 1. Normal upper endoscopy. 2. No esophageal varices seen. PROCEDURE IN DETAIL: A written consent was obtained prior to procedure. After adequate sedation, a forward-viewing endoscope was advanced down the stomach under direct vision to second portion of duod enum. The duodenum appeared normal. Pulses patent. The gastric antrum, body, fundus, and cardia al l appeared normal. Retroflexion did not show any abnormality. GE junction is located at 40 cm. The esophagus appeared normal without any varices. Patient tolerated the procedure well. ASSESSMENT: 1. Normal upper endoscopy. 2. Previously seen esophageal varices, likely resulted from heart failure at that time and not harry l hypertension from cirrhosis. RECOMMENDATIONS: 1. No further evaluation. 2. Resume diet and medication.
--- NOTE | 2018-02-06 08:17 | EKG ---
Test Reason : PREOP Blood Pressure : / mmHG Vent. Rate : 046 BPM Atrial Rate : 046 BPM P-R Int : 184 ms QRS Dur : 104 ms QT Int : 464 ms P-R-T Axes : 044 044 056 degrees QTc Int : 406 ms Sinus bradycardia Otherwise normal ECG When compared with ECG of 13-NOV-2017 12:01, Nonspecific T wave abnormality no longer evident in Anterior leads Confirmed by VINNIE SALOMON ([id number]) on 02/06/2018 8:16:52 AM Referred By: JAVIER Confirmed By:VINNIE SALOMON
== END 2018-02-05 13:11 | disposition home or self-care (01) ==
LOC: SDC 09:30
PROVIDERS: ATTEND Internal Medicine Gastroenterology
PROC: 0DJ08ZZ Inspection of Upper Intestinal Tract, Via Natural or Artificial Opening Endoscopic (ICD-10-PCS; principal; 2018-02-05)
DX: Z09 Encounter for follow-up examination after completed treatment for conditions other than malignant neoplasm (principal); K21.9 Gastro-esophageal reflux disease without esophagitis; R79.89 Other specified abnormal findings of blood chemistry; Z79.01 Long term (current) use of anticoagulants; Z79.899 Other long term (current) drug therapy
CPT/HCPCS: 93005; 93010; J2704

== ENCOUNTER 2018-08-23 06:54 | Emergency (ER) | payer BC ==
[2018-08-23] MEDS ORDERED: Metoprolol Tartrate 5 MG/5 ML VIAL ONE (07:19)
[2018-08-23 07:37] LABS: #Eosinphils 0.2 thou/uL (0.0-0.7); #Lymphocytes 1.7 thou/uL (1.20-3.40); #Monocytes 0.4 thou/uL (0.11-0.59); #Neutrophils 1.6 thou/uL (1.40-6.50); %Basophils 0.2 % (0.0-1.0); %Eosinophils 5.6 % (0.0-10.0); %Lymphocytes 42.1 % (21.0-51.0); %Monocytes 11.1 % (0.0-10.0); %Neutrophils 40.9 % (42.0-75.0); Mean Corpuscular HGB CONC 33.4 g/dL (32.0-36.0); Mean Corpuscular Hemoglobin 30.7 pg (27.0-31.0); Mean Corpuscular Volume 91.9 fL (78.0-98.0); Mean Platelet Volume 6.8 fL (7.4-10.4); Platelet Count 206 thou/uL (130-400); RBC Distribution Width 11.9 % (11.5-14.5); Red Blood Cell (RBC) Count 4.56 mill/uL (4.70-6.10)
[2018-08-23] MEDS ORDERED: Midazolam HCl 5 mg/ml Vial ONE (07:42)
[2018-08-23] MEDS ORDERED: Fentanyl 100 MCG/2 ML VIAL ONE (07:42)
[2018-08-23 08:00] LABS: ALT (SGPT) 16 U/L (8-55); AST (SGOT) 16 U/L (5-34); Albumin 3.9 g/dL (3.5-5.0); Alkaline Phosphatase 58 U/L (40-150); Anion Gap 13 mmol/L (10-20); BUN (Urea Nitrogen) 16 mg/dL (8.9-20.6); Bilirubin, Total 0.9 mg/dL (0.2-1.2); Calc. Creatinine Clearance 0 mL/min (70-130); Calcium 9.6 mg/dL (7.8-10.44); Carbon Dioxide 25 mmol/L (22-29); Chloride 104 mmol/L (98-107); Estimated GFR-MDRD 72; Globulin 3.4 g/dL (2.4-3.5); Glucose 91 mg/dL (70-105); Protein, Total 7.3 g/dL (6.0-8.3); Sodium 138 mmol/L (136-145)
--- NOTE | 2018-08-23 08:32 | RAD ---
AP view chest HISTORY: Tachycardia AP view chest obtained on 08/23/2018. Comparison made to exam from 11/13/2017. AP view chest mistreats mild cardiomegaly seen. No evidence of effusions, pneumonia or pneumothorax s een IMPRESSION: mild cardiomegaly otherwise unremarkable AP view chest.
[2018-08-23] MEDS ORDERED: Aspirin Chewable 81 MG TAB ONE (09:57)
== END 2018-08-23 11:16 | disposition home or self-care (01) ==
LOC: ERS 06:54
DX: I97.190 Other postprocedural cardiac functional disturbances following cardiac surgery (principal)
CPT/HCPCS: 71045; 80053; 83735; 84484; 85025; 92960; 93005; 96361; 96374; 99152; J2250; J3010

== ENCOUNTER 2018-09-22 22:23 | Emergency (ER) | payer BC ==
--- NOTE | 2018-09-22 23:05 | RAD ---
EXAM: CHEST ONE VIEW HISTORY: Heart palpitations to started this evening. Chest pain. COMPARISON: 08/23/2018 FINDINGS: Cardiac silhouette is magnified by projection but does remain mildly enlarged. The pulmonary vasculat ure is within normal limits. The lungs are clear. The osseous structures are intact. IMPRESSION: Mild cardiomegaly without evidence of an acute cardiopulmonary process.
[2018-09-22 23:31] LABS: #Eosinphils 0.2 thou/uL (0.0-0.7); #Lymphocytes 2.4 thou/uL (1.20-3.40); #Monocytes 0.5 thou/uL (0.11-0.59); #Neutrophils 2.1 thou/uL (1.40-6.50); %Basophils 0.3 % (0.0-1.0); %Eosinophils 4.6 % (0.0-10.0); %Lymphocytes 45.5 % (21.0-51.0); %Monocytes 10.1 % (0.0-10.0); %Neutrophils 39.5 % (42.0-75.0); Hemoglobin 13.7 g/dL (14.0-18.0); Mean Corpuscular HGB CONC 33.5 g/dL (32.0-36.0); Mean Corpuscular Hemoglobin 30.7 pg (27.0-31.0); Mean Corpuscular Volume 91.6 fL (78.0-98.0); Mean Platelet Volume 7.6 fL (7.4-10.4); Platelet Count 200 thou/uL (130-400); RBC Distribution Width 11.7 % (11.5-14.5); Red Blood Cell (RBC) Count 4.47 mill/uL (4.70-6.10); White Blood Cell (WBC) Count 5.3 thou/uL (4.8-10.8)
[2018-09-22 23:57] LABS: Anion Gap 15 mmol/L (10-20); BUN (Urea Nitrogen) 25 mg/dL (8.9-20.6); Calc. Creatinine Clearance 0 mL/min (70-130); Carbon Dioxide 22 mmol/L (22-29); Chloride 105 mmol/L (98-107); Estimated GFR-MDRD 68; Potassium 4.1 mmol/L (3.5-5.1); Sodium 138 mmol/L (136-145)
[2018-09-22 23:58] LABS: ALT (SGPT) 17 U/L (8-55); AST (SGOT) 23 U/L (5-34); Albumin 3.9 g/dL (3.5-5.0); Alkaline Phosphatase 56 U/L (40-150); Bilirubin, Total 0.6 mg/dL (0.2-1.2); CK (CPK) 238 U/L (30-200); Calcium 9.4 mg/dL (7.8-10.44); Globulin 3.3 g/dL (2.4-3.5); Glucose 96 mg/dL (70-105); Protein, Total 7.2 g/dL (6.0-8.3)
== END 2018-09-23 00:29 | disposition home or self-care (01) ==
LOC: ERS 22:23
DX: I48.91 Unspecified atrial fibrillation (principal); Z79.891 Long term (current) use of opiate analgesic; Z79.82 Long term (current) use of aspirin; Z79.899 Other long term (current) drug therapy
CPT/HCPCS: 71045; 80053; 82550; 83880; 84484; 85025; 93005; 96361; 96374

== ENCOUNTER 2018-10-06 20:58 | Inpatient (IN) | payer BC ==
[2018-10-06 21:26] LABS: #Eosinphils 0.3 thou/uL (0.0-0.7); #Lymphocytes 2.6 thou/uL (1.20-3.40); #Monocytes 0.6 thou/uL (0.11-0.59); #Neutrophils 2.9 thou/uL (1.40-6.50); %Basophils 0.4 % (0.0-1.0); %Lymphocytes 40.8 % (21.0-51.0); %Neutrophils 44.8 % (42.0-75.0); Mean Corpuscular HGB CONC 31.9 g/dL (32.0-36.0); Mean Corpuscular Hemoglobin 29.7 pg (27.0-31.0); Mean Corpuscular Volume 92.9 fL (78.0-98.0); Mean Platelet Volume 6.7 fL (7.4-10.4); Platelet Count 207 thou/uL (130-400); RBC Distribution Width 11.8 % (11.5-14.5); Red Blood Cell (RBC) Count 4.73 mill/uL (4.70-6.10); White Blood Cell (WBC) Count 6.5 thou/uL (4.8-10.8)
--- NOTE | 2018-10-06 21:39 | RAD ---
PORTABLE CHEST: HISTORY: Heart palpitations. COMPARISON: 09/22/2018 study. FINDINGS: Heart size is slightly enlarged. Mediastinal structures are unremarkable. The lungs are clear of in filtrates. There are no signs of failure. IMPRESSION: Mild cardiomegaly. POS: [facility]
[2018-10-06 21:54] LABS: ALT (SGPT) 18 U/L (8-55); AST (SGOT) 17 U/L (5-34); Albumin 3.9 g/dL (3.5-5.0); Alkaline Phosphatase 62 U/L (40-150); Anion Gap 13 mmol/L (10-20); BUN (Urea Nitrogen) 24 mg/dL (8.9-20.6); Bilirubin, Total 0.7 mg/dL (0.2-1.2); CK (CPK) 278 U/L (30-200); Calc. Creatinine Clearance 0 mL/min (70-130); Calcium 9.2 mg/dL (7.8-10.44); Carbon Dioxide 25 mmol/L (22-29); Chloride 104 mmol/L (98-107); Estimated GFR-MDRD 52; Globulin 3.3 g/dL (2.4-3.5); Glucose 108 mg/dL (70-105); Protein, Total 7.2 g/dL (6.0-8.3); Sodium 138 mmol/L (136-145)
[2018-10-06] MEDS ORDERED: Diltiazem HCl 125 MG, Admixture Fee 1 EACH in Sodium Chloride 0.9% 100 ML IVPB SCH (22:15)
[2018-10-06] MEDS ORDERED: Enoxaparin Sodium 100 MG/ML SYRINGE ONE (23:08)
[2018-10-06] MEDS ORDERED: Enoxaparin Sodium 30 MG/0.3 ML SYRINGE ONE ×2 (23:08→23:10)
[2018-10-06] MEDS ORDERED: Acetaminophen 325 MG TAB PO PRN (23:13)
[2018-10-06] MEDS ORDERED: Sodium Chloride 0.9% 1,000 ML IV SCH (23:59)
[2018-10-07 00:41] VITALS: BMI 37.8
--- NOTE | 2018-10-07 02:35 | PDOC.EVN ---
Event Note - Event Note Event Note: Informed patient who presented with Afib, flipped to A flutter 120-130s, and now bradycardic (30s to 40s). EKG requested. Patient asymptomatic at present. EP consult for tomorrow morning. Per Dr. Brewster, Diltiazem drip decreased from 5 mg/hr to 2.5 mg/hr.
[2018-10-07] MEDS ORDERED: Diltiazem 125 MG in Sodium Chloride 0.9% 100 ML IVPB SCH (02:45)
--- NOTE | 2018-10-07 04:29 | HP ---
CHIEF COMPLAINT: Palpitations. HISTORY OF PRESENT ILLNESS: The patient is a very pleasant 48-year-old male with a history of paroxysmal atrial fibrillation status post ablation, who presents to the hospital with complaints of palpitations. The patient stated that he returned from work today, was feeling well; however, while he was at home, felt his heart racing. At this time, he checked his heart rate and he noted that his heart rate was around 150s. The patient then came into the ER for further evaluation. He denies any chest pain or chest tightness, any shortness of breath, any nausea, vomiting, or diarrhea. The patient states that he is very active, has been working, and has been very excited to get back to work after being off from work for 11 months. PAST MEDICAL HISTORY: 1. The patient has a history of paroxysmal atrial fibrillation status post ablation. 2. Hypertension. 3. Heart failure. PAST SURGICAL HISTORY: He has had a cardiac ablation in 2018 and cardioversion x2. SOCIAL HISTORY: He drinks socially. The patient also states that he recently had 6 beers on the weekend. Denies any drug use or smoking history, but he did have alcohol. Lives with his family. He is a full code. ALLERGIES: HE HAS NO KNOWN DRUG ALLERGIES. MEDICATIONS: He takes 1. Carvedilol 25 mg twice a day. 2. Aspirin 81 mg daily. 3. Lisinopril 20 mg b.i.d. 4. Lasix 40 mg daily. PHYSICAL EXAMINATION: VITAL SIGNS: Temperature of 98.0, respirations 18, 75 heart rate, blood pressure of 106/66. GENERAL: He is awake, alert, and oriented x3. Does not appear in any distress. HEENT: Normocephalic, atraumatic. No lymphadenopathy noted. Pupils are equal and reactive to light. CV: Irregularly irregular. No murmurs are heard. LUNGS: Clear to auscultation. No rhonchi or wheezes noted. ABDOMEN: Soft and nontender. Bowel sounds are present x2. EXTREMITIES: No edema. Pedal pulses are present x2. NEUROVASCULAR: No focal deficits noted. LABORATORY RESULTS: WBC of 6.5, hemoglobin of 14.0, hematocrit of 43.9, platelets of 207. Chemistry; sodium of 138, potassium of 4.0, BUN of 24, creatinine of 1.70. His CK was elevated at 279. Troponin x1 was negative. BNP was 19. The patient did have a chest x-ray which did not indicate any acute abnormalities, just indicated mild cardiomegaly. ASSESSMENT AND PLAN: The patient is a 48-year-old male who presents to the hospital with complaints of palpitations. 1. Atrial fibrillation with rapid ventricular response. The patient initially was hypotensive, however, he did receive some fluid and was given Cardizem which controlled his heart rate back down to in the 80s. However, he continues to be in atrial fibrillation. I will start the patient on Lovenox. I will also start the patient on some gentle hydration and consult Cardiology for further evaluation. The patient states that he has been very compliant with his medications. 2. Mild acute kidney injury. We will continue the hydration and hold lisinopril for now. 3. Elevated CK. The patient has had elevated CK in the past. I believe this is most likely his baseline. However, I will continue to monitor. 4. Deep venous thrombosis prophylaxis. The patient is already on the enoxaparin, we will continue that. Job ID: [id number]
[2018-10-07] MEDS ORDERED: Enoxaparin Sodium 30 MG/0.3 ML SYRINGE SC SCH (09:00)
[2018-10-07] MEDS ORDERED: Aspirin 81 mg Enteric Coated Tablet PO SCH (09:00)
[2018-10-07] MEDS ORDERED: Lisinopril 10 MG TAB PO SCH (09:00)
[2018-10-07] MEDS ORDERED: Enoxaparin Sodium 100 MG/ML SYRINGE SC SCH (09:00)
[2018-10-07] MEDS: Carvedilol 25 MG TAB PO SCH ×2 (09:14→20:51)
[2018-10-07 09:33] LABS: #Eosinphils 0.2 thou/uL (0.0-0.7); #Monocytes 0.5 thou/uL (0.11-0.59); #Neutrophils 1.6 thou/uL (1.40-6.50); %Basophils 0.6 % (0.0-1.0); %Eosinophils 4.7 % (0.0-10.0); %Lymphocytes 46.6 % (21.0-51.0); %Monocytes 11.8 % (0.0-10.0); %Neutrophils 36.2 % (42.0-75.0); Hemoglobin 13.2 g/dL (14.0-18.0); Mean Corpuscular HGB CONC 32.2 g/dL (32.0-36.0); Mean Corpuscular Hemoglobin 30.2 pg (27.0-31.0); Mean Corpuscular Volume 93.7 fL (78.0-98.0); Mean Platelet Volume 6.6 fL (7.4-10.4); Platelet Count 175 thou/uL (130-400); RBC Distribution Width 11.8 % (11.5-14.5); Red Blood Cell (RBC) Count 4.36 mill/uL (4.70-6.10); White Blood Cell (WBC) Count 4.4 thou/uL (4.8-10.8)
[2018-10-07 09:53] LABS: Anion Gap 8 mmol/L (10-20); BUN (Urea Nitrogen) 21 mg/dL (8.9-20.6); Calc. Creatinine Clearance 120 mL/min (70-130); Calcium 8.8 mg/dL (7.8-10.44); Carbon Dioxide 26 mmol/L (22-29); Chloride 108 mmol/L (98-107); Estimated GFR-MDRD 70; Glucose 96 mg/dL (70-105); Potassium 4.4 mmol/L (3.5-5.1); Sodium 138 mmol/L (136-145)
--- NOTE | 2018-10-07 15:51 | CON ---
DATE OF CONSULTATION: 10/07/2018 HISTORY OF PRESENT ILLNESS: I am seeing Mr. Owens at our [facility] telemetry floor as an Electrophysiology cardiology clinical consultant. His problems are; 1. Recurrent atrial arrhythmias. a. History of paroxysmal atrial fibrillation with a history of cardiac arrest during the EGD procedure in August 2017. b. Status post pulmonary venous isolation procedure on 11/05/2017 with recurrence of atrial fibrillation requiring cardioversion. c. Current admission with episode of atypical atrial flutter/coarse atrial fibrillation with rapid rates, now back in sinus rhythm. 2. History of cardiomyopathy. a. With normal coronary arteries by left heart catheterization in August 2017. At that time, LVEF was 25% to 30%. b. Followup DANIEL on 09/20/2017 showing no appendage thrombus, normal LVEF. 3. History of nonsustained ventricular tachycardia. 4. History of atrial flutter with controlled rates in the past with amiodarone. 5. Obstructive sleep apnea and elevated BMI. 6. History of hypertension. 7. History of CKD 2. ALLERGIES: NONE NOTED. MEDICATIONS: At home included; 1. Carvedilol. 2. Lisinopril. 3. Furosemide. 4. Aspirin. 5. Lipitor. 6. The patient is not taking amiodarone at this time. SUBJECTIVE: Mr. Owens is here with recurrent dizziness and palpitations, rapid heart beats. He came to the ER, borderline blood pressures were seen. But eventually after fluid bolus, he was able to receive diltiazem, which eventually controlled his heart rates while on telemetry. He returned back to sinus rhythm without antiarrhythmic agents. Had transient mild bradycardia and the sinus rhythm in the 30s while on diltiazem. He had no chest pains at this time. No fever, chills, or cough. No stroke-like symptoms. No neurological deficits. No burning urination or diarrhea or abdomen discomforts. Rest of 12-point review of system otherwise unremarkable. PAST MEDICAL HISTORY: As above. PAST SURGICAL HISTORY: Significant for cardiac ablation in 2018 and cardioversion x2. SOCIAL HISTORY: The patient drinks on a social basis only. Denies smoking or drug use. Lives with his family. FAMILY HISTORY: Not contributory. OBJECTIVE DATA: VITAL SIGNS: Blood pressure is 117/69, heart rate 48, respiratory rate 16, and temperature 96.6 degrees Fahrenheit. GENERAL: Alert and oriented man, in no apparent distress. NECK: Supple. Jugular veins not distended. CHEST: Coarse without crackles. HEART: Sounds are regular to rate and rhythm. No murmur or gallop. ABDOMEN: Benign. Bowel sounds positive. EXTREMITIES: Lower extremities without edema, clubbing, or cyanosis. Pulses are adequate. NEUROLOGIC: The patient is nonfocal. MUSCULOSKELETAL: No joint pain or deformities. SKIN: Without rash. DATABASE: White blood cell count today 4.4, hemoglobin 13.2, and platelet count is 175. Sodium 138, potassium 4.4, BUN is 10, and creatinine 1.32. Troponin levels 0.01 normal range and BNP 19.7. TSH 0.996. ASSESSMENT AND PLAN: Mr. Owens is a pleasant 48-year-old man with a history of possibly rate-related cardiomyopathy in the setting of approximately atrial fibrillation episodes, but normalizing LVEF later, who underwent a left and right atrial ablation, improving his symptom of last year, but since then had recurrent atrial fibrillation episodes. This episode also was self-terminated after more sustained rapid rate. We discussed potential treatment options, which could include increasing beta rosa. Medications adding also on antiarrhythmic agents like flecainide could be a possibility. We also discussed option for repeat ablation, which I think would be reasonable to avoid a long-term arrhythmic exposure with this relatively young gentleman. Risks and benefits of this approach were discussed. We will also resume Eliquis for anticoagulation. We will schedule him for an outpatient ablation. I will see him in the office as well in about 4 to 6 weeks. Thank you again for allowing me to participate in the care of this patient. Job ID: [id number]
--- NOTE | 2018-10-07 17:41 | PDOC.PN ---
- Subjective Encounter Start Date: 10/07/18 Encounter Start Time: 17:30 Subjective: f/u for PAF on Cardizem transiently developing bradycardia. Feels ok -: and back to sinus bradycardia. - Objective Resuscitation Status - Order Detail: 10/06/18 23:13 Resuscitation Status Routine Resuscitation Status: FULL: Full Resuscitation MAR Reviewed: Yes Vital Signs & Weight: Vital Signs (12 hours) Temp Pulse Resp BP Pulse Ox 10/07/18 12:00 97.0 F L 45 L 18 113/65 10/07/18 08:00 98 10/07/18 07:49 96.6 F L 48 L 16 117/69 98 Weight Weight 279 lb 3.2 oz I&O: 10/06/18 10/07/18 10/08/18 06:59 06:59 06:59 Output Total 625 Balance -625 Result Diagrams: 10/07/18 09:27 10/07/18 09:27 Radiology Reviewed by me: Yes (PCXR - mild cardiomegaly) EKG Reviewed by me: Yes (Tele - sinus bradycardia, low's in the 40's) Phys Exam - Physical Examination Constitutional: NAD HEENT: PERRLA, sclera anicteric, oral pharynx no lesions Neck: no nodes, no JVD, supple, full ROM Respiratory: no wheezing, no rales, no rhonchi, clear to auscultation bilateral S1, S2 Cardiovascular: RRR, no significant murmur, gallop Gastrointestinal: soft, non-tender, no distention, positive bowel sounds Musculoskeletal: no edema, pulses present Neurological: normal sensation, moves all 4 limbs Psychiatric: A&O x 3 Skin: normal turgor, cap refill <2 seconds Dx/Plan (1) Atrial fibrillation with RVR Code(s): I48.91 - UNSPECIFIED ATRIAL FIBRILLATION Status: Acute Comment: Recurrent, continue Coreg, Flecainide, Eliquis (2) Sinus bradycardia Code(s): R00.1 - BRADYCARDIA, UNSPECIFIED Status: Acute Comment: Iatrogenic , decrease Coreg 12.5mg BID (3) CKD (chronic kidney disease), stage II Code(s): N18.2 - CHRONIC KIDNEY DISEASE, STAGE 2 (MILD) Status: Chronic Comment: Avoid nephrotoxic agents and limit contrast exposure (4) Cardiomyopathy Code(s): I42.9 - CARDIOMYOPATHY, UNSPECIFIED Status: Chronic Comment: non ischemic, ef of 25% - Plan out of bed/ambulate Stable currently -: Decrease Coreg 12.5mg BID -: Continue Flecainide -: Continue Eliquis -: Likely home in am * .
[2018-10-07] MEDS ORDERED: Milk Of Magnesia 30 ML UDCUP PO PRN (20:11)
[2018-10-07] MEDS: Apixaban 5 MG TAB PO SCH (20:42)
[2018-10-07] MEDS: Flecainide 50 MG TAB PO SCH (20:47)
[2018-10-07] MEDS ORDERED: Carvedilol 25 MG TAB PO SCH (21:00)
[2018-10-08 04:42] LABS: Platelet Count 180 thou/uL (130-400)
[2018-10-08] MEDS ORDERED: Carvedilol 25 MG TAB PO SCH (08:00)
[2018-10-08] MEDS: Apixaban 5 MG TAB PO SCH (08:55)
[2018-10-08] MEDS: Flecainide 50 MG TAB PO SCH (08:56)
[2018-10-08] MEDS ORDERED: Atorvastatin Calcium 40 MG TAB PO SCH (09:00)
[2018-10-08] MEDS ORDERED: Aspirin 81 mg Enteric Coated Tablet PO SCH (09:00)
--- NOTE | 2018-10-08 11:26 | PDOC.CTH ---
Cardiology Progress Note - Subjective EP PROGRESS NOTE: 10/08/18 Seen as follow up for atrial fibrillation. Feels well today. Plan to DC home today. No cardiac concerns or complaints today. - Objective Vital Signs Temp Pulse Resp BP BP Pulse Ox 10/08/18 08:00 97.6 F 54 L 18 127/68 99 10/08/18 04:00 97.8 F 50 L 18 112/68 96 10/07/18 23:42 50 L 119/64 Weight 279 lb 3.2 oz 10/07/18 10/08/18 10/09/18 06:59 06:59 06:59 Intake Total 1017 Output Total 625 Balance 392 - Physical Examination General/Neuro: alert & oriented x3, NAD Neck: carotid US brisk, no JVD present Lungs: CTA, unlabored respirations Heart: PMI normal, RRR Abdomen: NT/ND, soft - Telemetry Telemetry Rhythm: SR. QRS stable - Labs Result Diagrams: 10/08/18 04:02 10/08/18 04:02 Troponin/CKMB Troponin I Less than 0.010 ng/mL (< 0.028) 10/06/18 21:20 - Assessment/Plan 1. Atrial fibrillation -second late recurrence after PVAI on 11/05/17 - converted with IV diltiazem - will schedule OP redo PVAI - Flecainide 50 mg BID started. QRS stable 80-90msec 2. Hx of cardiomyopathy - recovered EF - Echo 10/07/18 EF 50-55% 3. CHADS2-VASC score: 1-2 (HTN and prior cardiomypathy) - started on Eliquis 5mg PO BID in anticipation of upcoming ablation 4. Bradycardia -asymptomatic -Coreg reduced to 12.5mg BID OK to DC on flecainide, eliquis, and coreg as currently ordered. Will arrange OP follow up.
[2018-10-08 12:33] VITALS: BP 129/68; TEMP 97.4
--- NOTE | 2018-10-09 08:26 | DIS ---
DATE OF ADMISSION: 10/07/2018 DATE OF DISCHARGE: 10/08/2018 DISCHARGE DIAGNOSES: 1. Paroxysmal atrial fibrillation converting to sinus mechanism. 2. Sinus bradycardia, iatrogenic. 3. Chronic kidney disease, stage 2. 4. Nonischemic cardiomyopathy with current ejection fraction 50% to 55%. CONSULTATIONS: Dr. Casiano with Electrophysiology Service. PERTINENT LABORATORY AND X-RAY FINDINGS: Creatinine ranged between 1.27 to 1.70. Estimated GFR ranged between 52 to 73, total CK of 278. Troponin I negative x1. BNP 20. TSH is 0.997. CBC showed a hemoglobin ranged between 13.0 to 14.0. Portable chest x-ray dated 10/06/2018, showed mild cardiomegaly. 2D transthoracic echocardiogram dated 10/07/2018, showed ejection fraction of 50% to 55%. Mild left atrial enlargement. Moderate mitral regurgitation. HOSPITAL COURSE: The patient was admitted to the telemetry unit after initially presenting with palpitations. The patient was noted with paroxysmal atrial fibrillation with rapid ventricular response. The patient was initially placed on IV fluids and given Cardizem with rapid rate control with heart rates improving into the upper 80s. The patient also received subcutaneous Lovenox and was evaluated by the Electrophysiology Service. Due to the patient's history of cardiomyopathy, recommendations were to transition from amiodarone to flecainide and initiate anticoagulation with Eliquis 5 mg b.i.d. The patient transitioned to IV rate control measures and was noted with sinus bradycardia on telemetry monitoring. Heart rates decreased into the 30s and 40s. At which point, the patient was decreased on carvedilol from 25 mg to 12.5 mg b.i.d. The patient remained asymptomatic and overall clinically stabilized. Current recommendations per Electrophysiology Service are for consideration of outpatient cardiac ablation in 4-6 weeks after discharge. I have examined the patient at the time of discharge and discussed followup instructions. The patient verbalizes understanding and agreement ready for discharge on 10/08/2018. DISCHARGE MEDICATIONS: 1. Enteric-coated aspirin 81 mg p.o. daily. 2. Lipitor 40 mg p.o. daily. 3. Lisinopril 10 mg p.o. daily. 4. Eliquis 5 mg p.o. b.i.d. 5. Coreg 12.5 mg p.o. b.i.d. 6. Flecainide 50 mg p.o. b.i.d. 7. Lasix 20 mg p.o. q.a.m. FOLLOWUP: The patient may follow up with his primary care provider, Choco Franklin within 7 days of discharge. The patient may follow up with Dr. Casiano in 4-6 weeks after discharge. CONDITION ON DISCHARGE: Stable. ACTIVITY: Ad-ross. DIET: Heart healthy. CODE STATUS: Full. DISPOSITION: Home on 10/08/2018. Job ID: [id number]
== END 2018-10-08 12:30 | disposition home or self-care (01) | DRG 309 ==
LOC: ERS 20:58 → 2NO 10-07 00:08
PROVIDERS: ADMIT Internal Medicine; ATTEND Internal Medicine
DX: I48.0 Paroxysmal atrial fibrillation (principal); N17.9 Acute kidney failure, unspecified; I13.0 Hypertensive heart and chronic kidney disease with heart failure and stage 1 through stage 4 chronic kidney disease, or unspecified chronic kidney disease; G47.33 Obstructive sleep apnea (adult) (pediatric); N18.2 Chronic kidney disease, stage 2 (mild); I42.8 Other cardiomyopathies; I34.0 Nonrheumatic mitral (valve) insufficiency; I50.9 Heart failure, unspecified; I25.2 Old myocardial infarction; Z79.899 Other long term (current) drug therapy; Z79.82 Long term (current) use of aspirin
CPT/HCPCS: 36415; 71045; 80048; 80053; 82550; 82565; 83880; 84443; 84484; 85014; 85018; 85025; 85049; 93005; 93010; 93306; J1650; J3490

== ENCOUNTER 2018-10-29 14:46 | Outpatient (CLI) | payer BC ==
[2018-10-29 17:32] LABS: Hemoglobin 12.8 g/dL (14.0-18.0); Mean Corpuscular Hemoglobin 29.7 pg (27.0-31.0); Mean Corpuscular Volume 92.9 fL (78.0-98.0); Mean Platelet Volume 6.9 fL (7.4-10.4); Platelet Count 205 thou/uL (130-400); RBC Distribution Width 11.5 % (11.5-14.5); Red Blood Cell (RBC) Count 4.29 mill/uL (4.70-6.10); White Blood Cell (WBC) Count 4.6 thou/uL (4.8-10.8)
[2018-10-29 17:37] LABS: INR-International Normal Ratio 1.2; PTT 33.4 SEC (22.9-36.1); Prothrombin Time 14.9 SEC (12.0-14.7)
[2018-10-29 18:01] LABS: Anion Gap 13 mmol/L (10-20); BUN (Urea Nitrogen) 17 mg/dL (8.9-20.6); Calc. Creatinine Clearance 0 mL/min (70-130); Carbon Dioxide 25 mmol/L (22-29); Chloride 105 mmol/L (98-107); Estimated GFR-MDRD 66; Glucose 102 mg/dL (70-105); Potassium 4.2 mmol/L (3.5-5.1); Sodium 139 mmol/L (136-145)
== END 2018-10-29 14:47 | disposition home or self-care (01) ==
LOC: LABBT 14:46
PROVIDERS: ATTEND Internal Medicine Cardiovascular Disease
DX: Z01.818 Encounter for other preprocedural examination (principal); I48.91 Unspecified atrial fibrillation
CPT/HCPCS: 80048; 85027; 85610; 85730; 93005; 93010

== ENCOUNTER 2018-11-03 10:50 | Observation (INO) | payer BC ==
[2018-11-03] MEDS ORDERED: Heparin 10,000 UNITS/1 ML VIAL ONE ×3 (12:24→15:25)
[2018-11-03] MEDS ORDERED: Lidocaine 1% (PF) 30 ML VIAL ONE (12:50)
[2018-11-03] MEDS ORDERED: Fentanyl 100 MCG/2 ML VIAL ONE (13:12)
[2018-11-03] MEDS ORDERED: Heparin 25,000 units/D5W 500 ML ONE (14:00)
[2018-11-03] MEDS ORDERED: Isoproterenol 0.2 MG/1 ML AMP ONE ×2 (14:00→14:15)
[2018-11-03] MEDS ORDERED: PROPOFOL 200 MG/20 ML VIAL ONE (15:58)
[2018-11-03] MEDS ORDERED: Glycopyrrolate 0.2 MG/ML 5 ML SYRINGE ONE (15:58)
[2018-11-03] MEDS ORDERED: Lidocaine 1% PF 5 ML VIAL ONE (15:58)
[2018-11-03] MEDS ORDERED: Rocuronium Bromide 10 MG/ML (10ML VIAL) ONE (15:58)
[2018-11-03] MEDS ORDERED: Heparin 30,000 units/30 ml VIAL ONE (15:58)
[2018-11-03] MEDS ORDERED: Protamine Sulfate 50 MG/5 ML VIAL ONE (16:57)
[2018-11-03] MEDS ORDERED: Promethazine HCl 25 MG/ML VIAL SLOW IVP PRN (17:26)
[2018-11-03] MEDS ORDERED: Ondansetron HCl/PF 4 MG/2 ML Vial IVP PRN (17:26)
[2018-11-03] MEDS ORDERED: Promethazine HCl 25 MG/ML VIAL IM PRN (17:26)
[2018-11-03 19:30] VITALS: BMI 81.1
[2018-11-03] MEDS: Flecainide 50 MG TAB PO SCH (20:41)
[2018-11-03] MEDS: Apixaban 5 MG TAB PO SCH (20:41)
[2018-11-03] MEDS ORDERED: Atorvastatin Calcium 40 MG TAB PO SCH (21:00)
--- NOTE | 2018-11-03 23:59 | OP ---
DATE OF PROCEDURE: 11/03/2018 PROCEDURES PERFORMED: Electrophysiology study and radiofrequency ablation. REASON FOR PROCEDURE: Mr. Owens is a 48-year-old male with prior history of cardiac arrest with atrial fibrillation with RVR. During colonoscopy, he has underwent a prior pulmonary venous isolation procedure on August 2017, but late recurrence of atrial fibrillation/atypical atrial flutter requiring flecainide administration was noted. He is here for redo radiofrequency ablation. He has been chronically anticoagulated with novel anticoagulant, apixaban. DESCRIPTION OF PROCEDURE: The patient received propofol and general anesthesia by Anesthesia specialist. Left and right femoral venous areas were prepped, draped , and anesthetized with subcutaneous lidocaine. With ultrasound guidance, both femoral veins were cannulated. On the left side, an 11-Bengali sheath was used to advance an intracardiac echocardiogram, which was in turn used to monitor the pericardial space as well as the transseptal procedure throughout the study. Also on the left side, a Preface sheath was advanced to deliver a DuoDeca catheter, which was used to cannulate the CS and also required from the right atrium. On the right side on the other hand, two 8-Bengali short sheaths were introduced. Initially, a ThermoCool SFST catheter was advanced to the right atrium and 3D map of the right atrium was obtained, delineating His bundle, CS positions as well. Following that, IV heparin was administered and adjusted to keep the ACT over 350 throughout the procedure. The transseptal catheterization was performed, exchanging the short sheaths on the right side to [place] 45-degree transseptal sheath, which was used to deliver a ThermoCool SFST and 20-pole PentaRay catheter into the left atrium. 3D map of the left atrium was obtained and voltage map was also obtained. Minor reconnection of the right superior pulmonary vein also, the ridge area anterior to the left and right pulmonary veins were noted. The posterior wall was not ablated in the prior procedure. Baseline EP study was also performed at this point. VA conduction was noted at 610 milliseconds with central concentric conduction during LV pacing. AV Wenckebach cycle was 300 millisecond during Isuprel later. Baseline cycle length was sinus rhythm at 1263 milliseconds, AK 150, QRS 82, QT 389, AH 134, HV at 63 milliseconds. The AV brandee ERP was 600/260 milliseconds. No dual AV brandee physiology was seen and concentric retrograde VA conduction was noted. Burst atrial pacing in the end of the case did not induce any arrhythmias. Ablation was delivered in the left atrium, total of 20 minutes with 31 lesions at 40 turk, isolating the reconnected right superior as well as the left superior vein and chang. Also, the roof line and inferior line were placed, achieving posterior wall isolation throughout the case. Esophageal temperature was monitored with the esophageal probe to avoid excessive heating. At this point, Isuprel was administered at 20 mcg and the connections were re-ablated. At the end of the case, no atrial fibrillation or other arrhythmias were inducible. Catheter was removed from the left side. Intracardiac echo and cine do not reveal any pericardial effusion. Heparin was also discontinued and protamine was used to reverse the IV heparin effect. Long sheaths were exchanged for short sheaths and Vascade device closure was performed in all four femoral venous access sites under ultrasound guidance. At the end of the case, the patient tolerated the procedure well. No complications noted. CONCLUSION: 1. Successful re-isolation of the reconnected right superior vein, as well as left superior vein in this area. The roof and inferior lines in the posterior wall achieved posterior wall isolation. 2. No evidence of accessory pathway during LV pacing. 3. No dual AV brandee physiology present and no arrhythmias inducible. PLAN: Continue anticoagulants and monitor for any recurrent atrial arrhythmias. Job ID: [id number] [facility]
[2018-11-04] MEDS ORDERED: Carvedilol 25 MG TAB PO SCH (08:00)
[2018-11-04] MEDS ORDERED: Furosemide 20 MG TAB PO SCH (09:00)
[2018-11-04] MEDS ORDERED: Aspirin 81 mg Enteric Coated Tablet PO SCH (09:00)
[2018-11-04] MEDS ORDERED: Lisinopril 10 MG TAB PO SCH (09:00)
[2018-11-04] MEDS: Flecainide 50 MG TAB PO SCH (09:11)
[2018-11-04] MEDS: Apixaban 5 MG TAB PO SCH (09:11)
[2018-11-04 11:43] VITALS: BP 119/68; TEMP 98.4
--- NOTE | 2018-11-04 17:08 | EKG ---
Test Reason : Blood Pressure : / mmHG Vent. Rate : 074 BPM Atrial Rate : 074 BPM P-R Int : 184 ms QRS Dur : 096 ms QT Int : 400 ms P-R-T Axes : 069 073 056 degrees QTc Int : 444 ms Normal sinus rhythm Normal ECG When compared with ECG of 29-OCT-2018 16:51, Vent. rate has increased BY 25 BPM QT has lengthened Confirmed by DR. Freddy STOVER (3) on 11/04/2018 5:08:20 PM Referred By: Confirmed By:DR. Freddy STOVER
--- NOTE | 2018-11-04 17:11 | EKG ---
Test Reason : Blood Pressure : / mmHG Vent. Rate : 051 BPM Atrial Rate : 051 BPM P-R Int : 190 ms QRS Dur : 090 ms QT Int : 424 ms P-R-T Axes : 061 083 056 degrees QTc Int : 390 ms Sinus bradycardia Otherwise normal ECG When compared with ECG of 03-NOV-2018 17:34, (Unconfirmed) QT has shortened Confirmed by DR. Freddy STOVER (3) on 11/04/2018 5:10:52 PM Referred By: [facility] Confirmed By:DR. Freddy STOVER
--- NOTE | 2018-11-05 00:56 | DIS ---
DATE OF ADMISSION: 11/03/2018 DATE OF DISCHARGE: 11/04/2018 REFERRING PHYSICIAN: I am discharging Mr. Owens from our [facility]. ADMISSION DIAGNOSES: 1. Paroxysmal atrial fibrillation with original presentation after a cardiac arrest in the setting of colonoscopy and new onset of atrial fibrillation. 2. Status post pulmonary venous isolation procedure in August 2017. 3. Late recurrence of atypical atrial flutter requiring flecainide suppression. 4. Status post redo pulmonary venous isolation procedure on 11/03/2018, with total of 20 minutes of ablation at 40 Espino delivered, isolating the right superior and left superior pulmonary veins and the ridge and also isolating the posterior wall with roof and inferior ablation lines. HOSPITAL COURSE: Mr. Owens was admitted for elective redo left atrial ablation, which he tolerated well. He remained in sinus rhythm throughout the day and the subsequent day, he he was hemodynamically stable. PHYSICAL EXAMINATION: VITAL SIGNS: Blood pressure 119/68, heart rate 50, respirations 18, and temperature 98.4 degrees Fahrenheit. GENERAL: Transient bleeding in the right groin site, but that is resolved by the morning. Physical exam now reveals no hematoma. CHEST: Clear. HEART: Heart sounds are regular to rate and rhythm. No jugular venous distention. No edema. ABDOMEN: Benign. Bowel sounds positive. DATABASE: Telemetry strips reveal sinus rhythm. No PACs or atrial fibrillation. ASSESSMENT: Mr. Owens is a pleasant 48-year-old man with history of recurrent atrial fibrillation/atypical atrial flutter, status post redo pulmonary venous isolation as well as posterior wall ablation yesterday. He is stable now for discharge. PLAN: Continue anticoagulants with Eliquis. We stopped flecainide. Continue Coreg at 12.5 twice a day, but adjust if necessary, hence baseline bradycardia. Routine followup will be arranged in 6 weeks or earlier if symptoms dictate. Job ID: [id number]
== END 2018-11-04 13:34 | disposition home or self-care (01) ==
LOC: CCL 10:50 → 2SW 18:43
PROVIDERS: ADMIT Internal Medicine Cardiovascular Disease; ATTEND Internal Medicine Cardiovascular Disease
PROC: 02583ZZ Destruction of Conduction Mechanism, Percutaneous Approach (ICD-10-PCS; principal; 2018-11-03)
PROC: 02K83ZZ Map Conduction Mechanism, Percutaneous Approach (ICD-10-PCS; 2018-11-03)
PROC: 4A023FZ Measurement of Cardiac Rhythm, Percutaneous Approach (ICD-10-PCS; 2018-11-03)
PROC: 4A0234Z Measurement of Cardiac Electrical Activity, Percutaneous Approach (ICD-10-PCS; 2018-11-03)
DX: I48.0 Paroxysmal atrial fibrillation (principal); I48.4 Atypical atrial flutter; Z79.01 Long term (current) use of anticoagulants; Z79.82 Long term (current) use of aspirin; Z79.899 Other long term (current) drug therapy; Z98.890 Other specified postprocedural states
CPT/HCPCS: 76942; 85347; 90471; 90732; 93005; 93010; 93613; 93622; 93623; 93656; 93662; C1731; C1732; C1759; C1769; G0009; G0378; J1644; J2001; J2704; J2720; J3010

== ENCOUNTER 2018-11-18 21:36 | Inpatient (IN) | payer BC ==
[2018-11-18 22:02] LABS: #Basophils 0.1 thou/uL (0.0-0.2); #Eosinphils 0.2 thou/uL (0.0-0.7); #Lymphocytes 3.4 thou/uL (1.20-3.40); #Monocytes 0.9 thou/uL (0.11-0.59); #Neutrophils 3.3 thou/uL (1.40-6.50); %Basophils 1.2 % (0.0-1.0); %Eosinophils 2.3 % (0.0-10.0); %Lymphocytes 43.2 % (21.0-51.0); %Neutrophils 42.3 % (42.0-75.0); Hemoglobin 15.2 g/dL (14.0-18.0); Mean Corpuscular HGB CONC 32.8 g/dL (32.0-36.0); Mean Corpuscular Volume 91.6 fL (78.0-98.0); Mean Platelet Volume 6.9 fL (7.4-10.4); Platelet Count 224 thou/uL (130-400); RBC Distribution Width 11.5 % (11.5-14.5); Red Blood Cell (RBC) Count 5.06 mill/uL (4.70-6.10); White Blood Cell (WBC) Count 7.9 thou/uL (4.8-10.8)
[2018-11-18 22:40] LABS: ALT (SGPT) 15 U/L (8-55); AST (SGOT) 17 U/L (5-34); Alkaline Phosphatase 73 U/L (40-150); Anion Gap 13 mmol/L (10-20); BUN (Urea Nitrogen) 25 mg/dL (8.9-20.6); CK (CPK) 155 U/L (30-200); Calc. Creatinine Clearance 0 mL/min (70-130); Calcium 9.5 mg/dL (7.8-10.44); Carbon Dioxide 25 mmol/L (22-29); Chloride 103 mmol/L (98-107); Estimated GFR-MDRD 52; Globulin 3.3 g/dL (2.4-3.5); Glucose 99 mg/dL (70-105); Lipase 8 U/L (8-78); Potassium 4.1 mmol/L (3.5-5.1); Protein, Total 7.3 g/dL (6.0-8.3); Sodium 137 mmol/L (136-145)
[2018-11-18 22:46] LABS: CKMB 1.5 ng/mL (0-6.6)
--- NOTE | 2018-11-18 23:31 | RAD ---
FRONTAL RADIOGRAPH CHEST: 11/18/2018 HISTORY: Tachycardia. COMPARISON: 10/06/2018 FINDINGS: Heart and mediastinal contours demonstrate stable prominence of the cardiac silhouette. No pneumotho rax or pleural fluid. No focal consolidation or alveolar edema. IMPRESSION: No acute findings. POS: OFF
[2018-11-19] MEDS ORDERED: HYDROcodone/Acetaminophen 5/325 mg Tablet PO PRN
[2018-11-19] MEDS ORDERED: Senokot S 8.6-50 MG TAB PO PRN
[2018-11-19] MEDS ORDERED: Acetaminophen 325 MG TAB PO PRN
[2018-11-19] MEDS: Sodium Chloride 0.9% 1,000 ML IV SCH (00:44)
[2018-11-19 00:54] VITALS: BMI 36.2
[2018-11-19] MEDS ORDERED: Digoxin 0.5 MG/2 ML AMP SLOW IVP SCH ×2 (01:15→04:00)
[2018-11-19 01:47] LABS: Troponin I 0.238 ng/mL (< 0.028)
[2018-11-19] MEDS ORDERED: Amiodarone 450 MG in Dextrose 5% in Water 250 ML IVPB SCH (02:15)
--- NOTE | 2018-11-19 02:25 | PDOC.EVN ---
Event Note - Event Note Event Note: 0100 Patient's heart rate came back up to 140's by the time the patient got to 2SW --- patient asymptomatic BP 98/64. Order placed for digoxin IV. 0200 - patient's heart rate still in 140's ... BP 100/49, Discussed with Dr. Floyd who suggested an amiodorone drip and will transfer to Tele.
[2018-11-19] MEDS ORDERED: Amiodarone 150 MG, Admixture Fee 1 EACH in Dextrose 5% in Water 100 ML IVPB SCH (02:30)
--- NOTE | 2018-11-19 02:32 | HP ---
This is LEONARD Bustamante dictating a report for Ammy Floyd MD. PRIMARY CARE PHYSICIAN: Dr. Franklin. CUSTOMER EXPERIENCE LEADER: Dr. Lagunas. CUSTOMER EXPERIENCE LEADER EP: Dr. Casiano. CHIEF COMPLAINT: Tachycardia. HISTORY OF PRESENT ILLNESS: Mr. Owens is a 48-year-old man who reported to the emergency room after he noticed he got off work today that his pulse was in the 140s. 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 He noticed on his Fitbit that his pulse had gone up to 140. He said he took a shower, cools off, laid down in the bed for few minutes. When he got up, he checked it again and it was 140. He said it went down to 78 and then back up into the 140s and was sustained for a little while, enough to concern him and he came to the emergency room and had it checked out. He had an ablation performed on 11/03/2018. Also had left and right atrial ablation in 2018 for recurrent paroxysmal atrial fibrillation. He had original presentation for his atrial fibrillation after a cardiac arrest in the setting of a colonoscopy. He has also had a history of atypical atrial flutter requiring flecainide suppression, underwent the latest ablation as stated above on 11/03/2018, and has been feeling good until today when he noticed his pulse was up. Reports that he is basically asymptomatic today. He feels a little dehydrated, but no chest pain or shortness of breath. No extra fatigue. No dyspnea on exertion. In the ER, he was given 2 doses of Cardizem 10 and a liter of fluid and his pulse went down into the 70s to 80s and was maintaining. He continued to deny any changes. EKG x2 in the ER shows atrial flutter. ST segments normal. T-waves are normal. BUN and creatinine are slightly bumped today. BUN is 25 and when we checked it on 10/29/2018, it was 17. His creatinine today is 1.71; on 10/29/2018, it was 1.38. The patient to be admitted to the observation unit for Cardiology EP consult as the patient is status post ablation at x2 weeks. The patient had an echocardiogram done on 10/07/2018, which showed an EF of 50% to 55%, left atrium mildly dilated, moderate mitral regurgitation, mild tricuspid regurgitation. PAST MEDICAL HISTORY: Paroxysmal atrial fibrillation status post ablation, hypertension, heart failure. PAST SURGICAL HISTORY: Cardiac ablation in 2018 and again 2 weeks ago and has had cardioversion x2. SOCIAL HISTORY: Drinks occasionally. Denies any drug or smoking history. Lives with his family. ALLERGIES: NONE. HOME MEDICATIONS: 1. Aspirin 81 mg p.o. q.a.m. 2. Lipitor 40 mg p.o. at bedtime. 3. Lisinopril 10 mg p.o. q.a.m. 4. Eliquis 5 mg p.o. b.i.d. 5. Coreg 12.5 mg p.o. b.i.d. 6. Furosemide 20 mg q.a.m. REVIEW OF SYSTEMS: Denies any chest pain, shortness of breath, dyspnea on exertion. Reports that he noticed that he was tachycardic when he checked his Fitbit today. All other systems reviewed and are negative unless mentioned in the HPI. PHYSICAL EXAMINATION: VITAL SIGNS: Blood pressure 129/97, pulse 72, respirations 18, pO2 sats 98% on room air, temp is 98. GENERAL: Alert and oriented x3. Did not appear in any distress. HEENT: Normocephalic, atraumatic. Pupils are equally round and reactive to light. Mouth exam is normal. Mucous membranes are moist. LUNGS: Breath sounds are clear. No signs of any respiratory distress. CARDIOVASCULAR: Irregularly irregular. No murmurs are heard. ABDOMEN: Soft and nontender. Bowel sounds are heard. EXTREMITIES: Normal range of motion. Normal strength. Pulses are equal bilaterally. NEUROVASCULAR: Alert and oriented to person, place, and time. Speech is normal. LABORATORY RESULTS: Sodium 137, potassium 4.1, carbon dioxide 25, gap is 13, BUN is 25, creatinine is 1.71, estimated GFR is 52, bilirubin 1. Liver enzymes are unremarkable. His first troponin was in the indeterminate range of 0.156. White blood cell count is 7.9, platelet count is 224, hemoglobin is 15.2, hematocrit is 46.3. ASSESSMENT AND PLAN: 1. Atrial flutter in rapid ventricular response. Initially, he was given 20 mg of Cardizem in the emergency room and a liter of fluid, which brought it down to rate controlled. We will consult Cardiology EP, Dr. Casiano as he has recently had an ablation 2 weeks ago and has a history of paroxysmal atrial fibrillation. 2. Hypertension. We will restart home medication. 3. Chronic anticoagulation. The patient is on Eliquis. We will restart. 4. History of heart failure, appears stable. We will continue the home dose of Coreg and Lasix. 5. Gastrointestinal prophylaxis will be started. Case discussed with Dr. Floyd, who agrees to plan. Hospital course is depending on clinical findings. Job ID: [id number]
[2018-11-19 05:27] LABS: ALT (SGPT) 12 U/L (8-55); AST (SGOT) 14 U/L (5-34); Albumin 3.3 g/dL (3.5-5.0); Alkaline Phosphatase 65 U/L (40-150); Anion Gap 10 mmol/L (10-20); BUN (Urea Nitrogen) 23 mg/dL (8.9-20.6); Bilirubin, Total 1.2 mg/dL (0.2-1.2); Calc. Creatinine Clearance 102 mL/min (70-130); Carbon Dioxide 26 mmol/L (22-29); Chloride 107 mmol/L (98-107); Estimated GFR-MDRD 61; Globulin 2.8 g/dL (2.4-3.5); Glucose 128 mg/dL (70-105); Potassium 4.2 mmol/L (3.5-5.1); Protein, Total 6.1 g/dL (6.0-8.3); Sodium 139 mmol/L (136-145)
[2018-11-19 05:30] LABS: Troponin I 0.242 ng/mL (< 0.028)
[2018-11-19 05:34] LABS: Hemoglobin 14.6 g/dL (14.0-18.0); Lymphocytes 39 % (21-51); MDiff Complete? YES; Mean Corpuscular HGB CONC 32.4 g/dL (32.0-36.0); Mean Corpuscular Hemoglobin 29.8 pg (27.0-31.0); Mean Corpuscular Volume 91.9 fL (78.0-98.0); Monocytes 2 % (0-10); Neutrophil 59 % (42-75); Platelet Count 202 thou/uL (130-400); Platelet Morphology Comment Appears Adequate; RBC Distribution Width 11.5 % (11.5-14.5); RBC Morphology Normal; Red Blood Cell (RBC) Count 4.91 mill/uL (4.70-6.10)
[2018-11-19] MEDS ORDERED: Sodium Chloride 0.9% 250 ML IV SCH ×2 (06:45→07:00)
[2018-11-19] MEDS: Carvedilol 25 MG TAB PO SCH ×2 (09:04→18:25)
[2018-11-19] MEDS: Aspirin 81 mg Enteric Coated Tablet PO SCH (09:05)
[2018-11-19] MEDS: Apixaban 5 MG TAB PO SCH ×2 (09:05→22:26)
[2018-11-19] MEDS: Famotidine 20 MG TAB PO SCH ×2 (09:05→22:25)
--- NOTE | 2018-11-19 10:00 | CON ---
DATE OF CONSULTATION: HISTORY OF PRESENT ILLNESS: The patient is a pleasant 48-year-old gentleman, who presents with a rapid heart rate. The patient has a history of an atrial fibrillation with an apparent cardiac arrest. He subsequently underwent a cardiac catheterization, which revealed him to have normal coronary arteries. He subsequently underwent an ablation for an atrial fibrillation. He has also undergone another ablation for atrial flutter. The patient 2 weeks ago underwent re-isolation of the recurrent ablation for atrial fibrillation. He has been maintained on Eliquis. He noted that his heart rate was elevated. The patient denied any palpitations or chest discomfort. He presented to the emergency room when he saw his heart rate was markedly elevated. PAST MEDICAL HISTORY: 1. Atrial fibrillation and flutter. 2. Hypertension. PAST SURGICAL HISTORY: None. SOCIAL HISTORY: Nonsmoker. MEDICATIONS: On admission, 1. Eliquis 5 b.i.d. 2. Aspirin 81 daily. 3. Lipitor 40 at bedtime. 4. Lisinopril 10 daily. 5. Coreg 12.5 b.i.d. 6. Lasix 20 daily. ALLERGIES: NO KNOWN DRUG ALLERGIES. FAMILY HISTORY: There is a positive family history of coronary artery disease. REVIEW OF SYSTEMS: Ten-point system otherwise unremarkable. PHYSICAL EXAMINATION: GENERAL: Well-developed gentleman, in no acute distress. VITAL SIGNS: Blood pressure is 198/71. NECK: No jugular venous distention. LUNGS: Clear to auscultation. HEART: Regular rate and rhythm. Normal S1 and S2. ABDOMEN: Nondistended. EXTREMITIES: Showed trace edema. VASCULAR: Radial pulses 2+. LABORATORY DATA: White blood cell count 6.0, hemoglobin 14.6, hematocrit 45.1, platelets 202. Sodium 139, potassium 4.2, chloride 107, bicarbonate 26, BUN 23, creatinine 1.48. Troponin 0.24. IMAGING STUDIES: His EKG revealed him to have atrial flutter with a nonspecific ST-T wave abnormality. IMPRESSION: 1. Recurrent atrial fibrillation and flutter. 2. Hypertension. This gentleman presents with recurrent atrial fibrillation and flutter and recently underwent ablation. I discussed this case with the wood ski maker, who recommends electrocardioversion. PLAN: Proceed with DANIEL cardioversion. Job ID: [id number]
[2018-11-19] MEDS ORDERED: PROPOFOL 0 ML ONE (11:32)
[2018-11-19] MEDS ORDERED: PROPOFOL 20 ML ONE (14:57)
[2018-11-19] MEDS ORDERED: PROPOFOL 200 MG/20 ML VIAL ONE (16:21)
--- NOTE | 2018-11-19 16:30 | CON ---
DATE OF CONSULTATION: REQUESTING PHYSICIAN: Pato Guerra MD REASON FOR REQUEST: Atrial flutter. HISTORY OF PRESENT ILLNESS: Mr. Owens is a 48-year-old gentleman with a history of atrial arrhythmias as well as a previous cardiac arrest as well as previous left atrial appendage clot. He recently underwent atrial fibrillation ablation in [place], however, has had early recurrence of atypical atrial flutter. He states that with this, he has shortness of breath and palpitation. PAST MEDICAL HISTORY: Significant for atrial fibrillation with cardiac arrest, previous left atrial appendage thrombus, sleep apnea, hypertension, chronic kidney disease. ALLERGIES: HE HAS NO ALLERGIES. MEDICATIONS: Include: 1. Lisinopril. 2. Levaquin. 3. Coreg. 4. Eliquis. 5. Lasix. 6. Amiodarone. FAMILY HISTORY: Significant for cardiomyopathy. SOCIAL HISTORY: He does not drink, smoke, or use illicit medications. REVIEW OF SYSTEMS: Reviewed. He reports shortness of breath as described. No nausea, vomiting, diarrhea, fever, or chills, or change in his vision or hearing. All others were negative other than included in the HPI. PHYSICAL EXAMINATION: VITAL SIGNS: Pulse is 130, blood pressure is 112/68. HEENT: Pupils are equally round and reactive to light and accommodation. Extraocular movements are intact. Nose; midline septum. No rhinorrhea or epistaxis. Throat, moist. No erythema or exudate. NECK: Supple without lymphadenopathy, JVD, or goiter. HEART: Tachycardic, irregular. LUNGS: Clear. ABDOMEN: Soft, nontender, and nondistended. Present bowel sounds. EXTREMITIES: Without cyanosis, clubbing, or edema. NEUROLOGIC: Cranial nerves 2 through 12 are grossly intact. Motor strength is 5/5 through. DIAGNOSTIC STUDIES: Electrocardiogram; atypical atrial flutter with rapid ventricular response. IMPRESSION: 1. Atrial fibrillation, status post redo ablation earlier in October of this year. Previous ablation in October of last year with a hospital cardiac arrest. 2. History of left atrial appendage thrombus. 3. Chronic kidney disease. RECOMMENDATIONS: Mr. Owens has recurrent atrial arrhythmia in the early period after ablation. I would recommend to continue anticoagulation and perform cardioversion. He should follow up with Dr. Casiano as scheduled. His cardiomyopathy had previously reversed to preserved left ventricular ejection fraction. Job ID: [id number]
[2018-11-19] MEDS ORDERED: Atorvastatin Calcium 40 MG TAB PO SCH (21:00)
--- NOTE | 2018-11-19 21:03 | CON ---
DATE OF CONSULTATION: 11/19/2018 A 48-year-old gentleman with paroxysmal atrial fibrillation and typical atrial flutter. The patient was taken to the PACU. The patient was sedated by Anesthesiology. The patient was shocked with 50 joules of synchronized electricity. The patient converted to normal sinus rhythm. IMPRESSION: Successful electrocardioversion. Job ID: [id number]
--- NOTE | 2018-11-19 21:57 | PRG ---
DATE OF SERVICE: 11/19/2018 SUBJECTIVE: Mr. Owens is a very pleasant 48-year-old male with past medical history significant for several atrial arrhythmias including atrial fibrillation and atrial flutter, status post ablation x2, who presented to the hospital with complaints of ongoing tachycardia after working outside in the heat for several hours. The patient has been admitted with paroxysmal atrial fibrillation, atrial flutter with RVR. The patient has been surprisingly asymptomatic throughout the night even with his tachycardia. He has no complaints to me including no chest pain or shortness of breath. No palpitations. He states the only reason he knew his heart rate was fast secondary to his Fitbit and blood pressure monitor at home. The patient to undergo DANIEL and cardioversion with Dr. Guerra. OBJECTIVE: VITAL SIGNS: Blood pressure 114/59, pulse 59, O2 saturation is 98% on room air, temperature is 98.1. GENERAL: The patient is a very well-appearing male, in no acute distress, resting comfortably in bed. CV: S1 and S2. Irregular rhythm, regular rate at the time of my evaluation. LUNGS: Regular respiratory rate and pattern. Clear to auscultation bilaterally. ABDOMEN: Soft. Positive bowel sounds. Nontender. EXTREMITIES: No edema. SKIN: Warm and dry. NEUROLOGIC: Cranial nerves 2 through 12 are grossly intact. The patient is nonfocal. LABORATORY DATA: White blood cell count 6.2, hemoglobin 14.6, hematocrit 45.1, platelets are 202. Sodium 139, potassium 4.2, creatinine 1.48. Troponin 0.156, 0.238, 0.248. BNP was 351. ASSESSMENT: 1. Recurrent atrial fibrillation, atrial flutter, with rapid ventricular response. CHADS-VASc equals 2 on anticoagulation with Eliquis. 2. Status post ablation x2 and cardioversion x2. 3. Hypertension. 4. [id number] renal insufficiency, appears to be chronic kidney disease stage 2, creatinine trending down. 5. History of tachycardic-induced cardiomyopathy with improved EF per records. PLAN: At this time, we will continue to monitor the patient closely overnight. Appreciate Cardiology and EP recommendations. We will continue to monitor his renal function. Further recommendations based on hospital course. Job ID: [id number]
[2018-11-20] MEDS: Sodium Chloride 0.9% 1,000 ML IV SCH (01:50)
[2018-11-20 05:42] LABS: Anion Gap 9 mmol/L (10-20); BUN (Urea Nitrogen) 18 mg/dL (8.9-20.6); Calc. Creatinine Clearance 116 mL/min (70-130); Calcium 8.8 mg/dL (7.8-10.44); Carbon Dioxide 26 mmol/L (22-29); Chloride 108 mmol/L (98-107); Estimated GFR-MDRD 71; Glucose 96 mg/dL (70-105); Potassium 4.3 mmol/L (3.5-5.1); Sodium 139 mmol/L (136-145)
--- NOTE | 2018-11-20 08:20 | OP ---
DATE OF PROCEDURE: 11/19/2018 PROCEDURE PERFORMED: Transesophageal echocardiogram. INDICATIONS: This is a 48-year-old gentleman with paroxysmal atrial fibrillation and atrial flutter. The patient was taken to the PACU. The patient was sedated by Anesthesiology. Transesophageal probe was placed into the distal esophagus and stomach. Echocardiographic images were obtained. The transesophageal probe was removed. FINDINGS: 1. Mild decrease in left ventricular systolic function. 2. The left ventricle is not dilated. 3. Normal mitral and aortic valves. 4. Mild mitral regurgitation. 5. Mild tricuspid regurgitation. 6. No thrombus noted in left atrial or left atrial appendage. 7. Atherosclerotic debris in the descending aorta. IMPRESSION: No formed thrombus in the left atrium or left atrial appendage. Job ID: [id number]
[2018-11-20 08:42] VITALS: BP 113/68; TEMP 98.2
[2018-11-20] MEDS ORDERED: Furosemide 20 MG TAB PO SCH (09:00)
[2018-11-20] MEDS: Aspirin 81 mg Enteric Coated Tablet PO SCH (09:03)
[2018-11-20] MEDS: Apixaban 5 MG TAB PO SCH (09:03)
[2018-11-20] MEDS: Carvedilol 25 MG TAB PO SCH (09:03)
[2018-11-20] MEDS: Famotidine 20 MG TAB PO SCH (09:03)
[2018-11-20 10:19] LABS: Hemoglobin 13.7 g/dL (14.0-18.0); Platelet Count 191 thou/uL (130-400)
--- NOTE | 2018-11-20 21:23 | DIS ---
DATE OF ADMISSION: 11/19/2018 DATE OF DISCHARGE: 11/20/2018 CHIEF COMPLAINT: On admission: Tachycardia. DISCHARGE DIAGNOSES: 1. Recurrent atrial fibrillation/atrial flutter with rapid ventricular response, CHADS-VASc equals 2 on anticoagulation with Eliquis, status post cardioversion in this admission with successful return to sinus rhythm. 2. Status post ablation x2 and cardioversion x3 secondary to recurrent atrial arrhythmias as outlined above. 3. Hypertension. 4. Acute on chronic renal insufficiency, chronic kidney disease stage 2, secondary to mild dehydration, resolved. 5. History of tachycardic induced cardiomyopathy with improved EF per record. BRIEF HOSPITAL COURSE: Mr. Owens is a very pleasant 48-year-old gentleman with past medical history significant for atrial fibrillation and atrial flutter status post multiple ablations and cardioversions, who presented to the hospital with complaints of tachycardia. The patient had been working outside for several hours out in the heat. He noticed that on his Fit that his heart rate appeared to be reading 140. He had no symptoms. He denied any chest pain, shortness of breath, or lightheadedness. He went home, took a shower and went to take his blood pressure, when he noted that again his heart rate was in the 140s to 180s. He presented to the emergency department for further workup and treatment. EKG did indeed reveal initially atrial flutter with heart rate in the 140s. He was given digoxin as well as placed on amiodarone drip with little improvement in his heart rate overnight, and slowly started to improve with heart rate in the 70s, but he remained intermittently in atrial fibrillation and atrial flutter. Dr. Guerra of Cardiology as well as Dr. Bourgeois of EP were consulted. DANIEL and cardioversion were recommended. This was performed successfully and the patient has remained in sinus rhythm since his procedure. He was monitored overnight. He has had no further arrhythmias. He was given gentle IV fluid resuscitation, and his creatinine trended down from 1.71 to 1.26, which is his baseline. The patient feels well. He denies any chest pain or shortness of breath. He has been cleared for discharge by Cardiology. DISCHARGE DISPOSITION: Home. DISCHARGE CONDITION: Stable. FOLLOWUP INSTRUCTIONS AND DISCHARGE: The patient will be discharged home on his home medications, no antiarrhythmic has been added. His home medications include Eliquis, aspirin, statin, and carvedilol 12.5 mg b.i.d. His blood pressure has remained in 110-120 systolic, and Dr. Lagunas has recommended holding lisinopril until his blood pressure increases some. I have explained this to the patient, he will monitor his blood pressure daily. The patient will be discharged home in good condition today with followup with his primary fur designer as well as EP. All questions answered. Job ID: [id number]
== END 2018-11-20 10:43 | disposition home or self-care (01) | DRG 309 ==
LOC: ERS 21:36 → 2SW 11-19 00:18 → OBSVTOIN 11-19 00:18
PROVIDERS: ADMIT Internal Medicine; ATTEND Internal Medicine
PROC: B24BZZ4 Ultrasonography of Heart with Aorta, Transesophageal (ICD-10-PCS; principal; 2018-11-19)
DX: I48.0 Paroxysmal atrial fibrillation (principal); I13.0 Hypertensive heart and chronic kidney disease with heart failure and stage 1 through stage 4 chronic kidney disease, or unspecified chronic kidney disease; I50.9 Heart failure, unspecified; G47.30 Sleep apnea, unspecified; I08.1 Rheumatic disorders of both mitral and tricuspid valves; I48.92 Unspecified atrial flutter; N18.2 Chronic kidney disease, stage 2 (mild); E86.0 Dehydration; Z79.01 Long term (current) use of anticoagulants; Z79.899 Other long term (current) drug therapy; Z79.82 Long term (current) use of aspirin
CPT/HCPCS: 36415; 71045; 80053; 82550; 82553; 82565; 83690; 83735; 83880; 84443; 84484; 85014; 85018; 85025; 85049; 92960; 93005; 93312; 96361; 96374; J0282; J1160; J2704; J7070

== ENCOUNTER 2019-07-11 17:45 | Emergency (ER) | payer BC ==
[2019-07-11] MEDS ORDERED: Bacitracin 1 PK ONE (18:20)
== END 2019-07-11 18:40 | disposition home or self-care (01) ==
LOC: ERS 17:45
DX: S00.211A Abrasion of right eyelid and periocular area, initial encounter (principal); S40.811A Abrasion of right upper arm, initial encounter; I48.91 Unspecified atrial fibrillation; I11.0 Hypertensive heart disease with heart failure; I50.9 Heart failure, unspecified; Z79.899 Other long term (current) drug therapy; V89.2XXA Person injured in unspecified motor-vehicle accident, traffic, initial encounter
CPT/HCPCS: 99283